=== PATIENT | female | born 1950 | race Caucasian/White ===

== ENCOUNTER 2017-12-28 10:00 | Outpatient (RCR) | payer BC, SELFPAY | END 2017-12-28 10:01 | disposition home or self-care (01) | LOC: PT 10:00 | PROVIDERS: Visit Provider Family Medicine | DX: M54.2 Cervicalgia (principal); M62.838 Other muscle spasm; M25.561 Pain in right knee; S83.8X9A Sprain of other specified parts of unspecified knee, initial encounter | CPT/HCPCS: 97110; 97140; 97163 ==

== ENCOUNTER → 2018-03-06 08:03 | Outpatient (CLI) | payer BC, MEDICARE, SELFPAY ==
--- NOTE | 2018-03-06 08:15 | US_ITS ---
US abdomen limited History:Gastroesophageal reflux, epigastric pain Ordering Physician:Matthew White MD Patient Age: 67 years Comparison:None Findings: Pancreas:Unremarkable. No obvious mass or abnormal fluid collection. No ductal dilatation Liver:No focal liver lesions demonstrated. Homogeneous echogenicity. No intrahepatic biliary ductal dilatation evident Right Kidney:Unremarkable. Normal size and echogenicity. No hydronephrosis Gallbladder:No gallstones, gallbladder wall thickening, pericholecystic fluid, or biliary dilatation. Abdomen bile duct is within normal limits at 6 mm the portal vein is not enlarged Impression:Negative gallbladder/right upper quadrant ultrasound
== END ==
PROVIDERS: PCP Family Medicine; Visit Provider Nurse Practitioner Family
DX: K21.9 Gastro-esophageal reflux disease without esophagitis (principal)
CPT/HCPCS: 76705

== ENCOUNTER → 2018-10-30 10:56 | Outpatient (CLI) | payer BC, SELFPAY ==
--- NOTE | 2018-10-30 11:02 | XR_ITS ---
XR foot wt bearing LT 3V HISTORY: ITS.REASON: pain ORDERING PHYSICIAN: Shirley De La Fuente DPM PATIENT AGE: 68 years COMPARISON: Right foot same date FINDINGS: No fracture or dislocation. No lytic or blastic change. There is normal mineralization.. The joint spaces are well-preserved. No significant degenerative/arthritic changes. No erosive changes evident. There is a small accessory navicular bone a normal variation. There is a small spur of the calcaneus at insertion of Achilles tendon and plantar tendon. There is some flattening of the plantar arch. There is mild spurring and sclerosis of the talonavicular articulation. IMPRESSION: Small calcaneal spurs and mild pes planus
--- NOTE | 2018-10-30 11:02 | XR_ITS ---
XR foot wt bearing RT 3V HISTORY: ITS.REASON: pain ORDERING PHYSICIAN: Shirley De La Fuente DPM PATIENT AGE: 68 years COMPARISON: Left foot same date FINDINGS: No fracture or dislocation. No lytic or blastic change. There is normal mineralization.. There is a small accessory navicular bone. There is mild sclerosis and narrowing of the talonavicular articulation. There is flattening of the plantar arch. . IMPRESSION: Mild arthritic change of the talonavicular articulation, mild pes planus
== END ==
PROVIDERS: PCP Family Medicine; Visit Provider Podiatrist
DX: M79.671 Pain in right foot (principal); M79.672 Pain in left foot
CPT/HCPCS: 73630

== ENCOUNTER → 2018-11-08 14:08 | Outpatient (CLI) | payer BC, SELFPAY ==
--- NOTE | 2018-11-08 14:13 | XR_ITS ---
XR knee RT 4V HISTORY: Right knee pain ITS.REASON: AP, Lateral, [place], [place] weight bearing ORDERING PHYSICIAN: Christi Greer MD PATIENT AGE: 68 years COMPARISON: None FINDINGS: There are moderate osteoarthritic changes of the lateral compartment and mild osteoarthritis of the patellofemoral joint. No fracture or dislocation.. The osteoarthritis has developed since 10/15/2013 exam on the lateral view of the knee there is a vague area of decreased attenuation in the proximal tibia. This is not identified on the additional AP views suppressible clinical significance. 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
== END ==
PROVIDERS: PCP Family Medicine; Visit Provider Orthopaedic Surgery
DX: M25.561 Pain in right knee (principal)
CPT/HCPCS: 73564

== ENCOUNTER → 2019-08-31 13:00 | Outpatient (CLI) | payer BC, SELFPAY ==
--- NOTE | 2019-08-31 13:06 | XR_ITS ---
PROCEDURE: XR CHEST 2V CLINICAL HISTORY: COUGH COMPARISON: CXR CHEST(2 VIEWS-NOT PORTABLE) from 03/04/2015 FINDINGS: The cardiomediastinal silhouette and pulmonary vascularity are within normal limits. No lobar consolidation or collapse is evident. There is mild bronchial thickening suggesting mild bronchitis. No acute bony abnormalities. IMPRESSION: Possible bronchitis otherwise negative Dictated by: Nicolás Cedillo MD 08/31/2019 15:02 Electronically signed by Nicolás Cedillo MD in [place] 08/31/2019 15:02
== END ==
PROVIDERS: PCP Family Medicine; Visit Provider Family Medicine
DX: R05 Cough (principal)
CPT/HCPCS: 71046

== ENCOUNTER → 2021-07-20 18:19 | Outpatient (CLI) | payer MEDICARE, OTHER, SELFPAY ==
[2021-07-20 18:45] LABS: Coronavirus 19, PCR Not Detected (NotDetected); Influenza A, PCR Not Detected (NotDetected); Influenza B, PCR Not Detected (NotDetected)
== END ==
PROVIDERS: PCP Family Medicine; Visit Provider Nurse Practitioner
DX: Z20.822 Contact with and (suspected) exposure to COVID-19 (principal)
CPT/HCPCS: C9803; U0003; U0005

== ENCOUNTER → 2023-03-07 10:36 | Outpatient (CLI) | payer MEDICARE, OTHER, SELFPAY ==
--- NOTE | 2023-03-07 10:47 | XR_ITS ---
FINAL REPORT CLINICAL HISTORY: RT FOOT PAIN FINDINGS: Right foot Three views were obtained. There is no acute fracture or dislocation. There are moderate degenerative changes. No soft tissue abnormality is identified. IMPRESSION: Moderate degenerative changes. Reviewed, Interpreted and Dictated by Tejas Triana III, MD Transcribed by Nanette Summers Authenticated and [facility]
== END ==
PROVIDERS: PCP Family Medicine; Visit Provider Nurse Practitioner Family
DX: M79.671 Pain in right foot (principal)
CPT/HCPCS: 73630

== ENCOUNTER → 2023-03-21 14:42 | Outpatient (CLI) | payer MEDICARE, OTHER, SELFPAY ==
--- NOTE | 2023-03-21 14:52 | CA_ITS ---
FINAL REPORT TECHNIQUE: Multiple transverse and longitudinal images were performed of right the femoral-popliteal deep venous system with augmentation and compression maneuvers. CLINICAL HISTORY: .PAIN CRAMPING FOOT CALF RIGHT LEG FINDINGS: Right lower extremity duplex ultrasound demonstrates normal flow in the deep venous system. There is no abnormal echogenicity to suggest thrombus. There is normal compression and augmentation. IMPRESSION: No evidence of right DVT. Reviewed, Interpreted and Dictated by Jhon Fallon MD Transcribed by Sherlyn Natarajan Authenticated and [facility]
== END ==
PROVIDERS: PCP Family Medicine; Visit Provider Nurse Practitioner Family
DX: M79.604 Pain in right leg (principal)
CPT/HCPCS: 93971

== ENCOUNTER 2024-04-10 13:49 | Outpatient (RCR) | payer MEDICARE, OTHER, SELFPAY | END 2024-04-10 13:50 | disposition home or self-care (01) | LOC: PT 13:49 | PROVIDERS: Visit Provider Orthopaedic Surgery | DX: M17.11 Unilateral primary osteoarthritis, right knee (principal) | CPT/HCPCS: 97110; 97163 ==

== ENCOUNTER 2024-07-02 11:00 | Outpatient (RCR) | payer MEDICARE, OTHER, SELFPAY | END 2024-07-02 23:59 | disposition home or self-care (01) | LOC: PT 11:00 | PROVIDERS: PCP Family Medicine; Visit Provider Physician Assistant | DX: M25.561 Pain in right knee (principal); Z96.651 Presence of right artificial knee joint | CPT/HCPCS: 97014; 97110; 97140; 97163; G0283 ==

== ENCOUNTER 2025-01-24 09:56 | Outpatient (RCR) | payer MEDICARE, OTHER, SELFPAY | END 2025-01-24 23:59 | disposition home or self-care (01) | LOC: PT 09:56 | PROVIDERS: PCP Family Medicine; Visit Provider Physician Assistant | DX: S72.141A Displaced intertrochanteric fracture of right femur, initial encounter for closed fracture (principal) | CPT/HCPCS: 97162; 97530 ==

== ENCOUNTER 2025-02-22 09:59 | Outpatient (CLI) | payer MEDICARE, OTHER, SELFPAY ==
--- OUTSIDE RECORDS SUMMARY | 2017-08-04 11:30 | XMS_ITS | Encounter Summary ---
[facility] Address [address] [place] [address] Care Team Providers Care Sonar Technician Name Role Phone Juan Luis Celis MD Primary Care Provider Unavail able Reason for Referral * Diagnostic Imaging (Routine) - Closed Specialty Diagnoses / Procedures Referred By Contac t Referred To Contact Radiology Diagnoses Postmenopausal bleeding Procedures US Non-ob Transvaginal Jazlyn King MD [address] [place] [address] Phone: tel: fax: [facility] Phone: tel: Referral ID Status Reason Start Date Expiration Date Visits Re quested Visits Authorized [id number] Closed 07/19/2017 07/19/2018 1 1 Reason for Visit * Diagnostic Imaging (Routine) - Closed Specialty Diagnoses / Procedures Referred By Contac t Referred To Contact Radiology Diagnoses Postmenopausal bleeding Procedures US Non-ob Transvaginal Jazlyn King MD [address] [place] [address] Phone: tel: fax: [facility] Phone: tel: Referral ID Status Reason Start Date Expiration Date Visits Re quested Visits Authorized [id number] Closed 07/19/2017 07/19/2018 1 1 Encounter Details Date Type Department Care Team (Latest Contact Info) Description 08/04/2017 10:30 AM EST Hospital Encounter [facility] [place] [phone] Postmenopausal bleeding Social History Tobacco Use Types [...] PAT NAME: ANNA MARIE ZAMORANO MED REC#: [id number] DA: 1950 PAT GEND: F PAT TYPE: O EXAM INGRID: [id number] REF PHYS JAZLYN KING Indication ======== Post Menopausal Bleeding. 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 Recommendation Follow-up as clinically indicated. Communications Officer: Renee Lee [facility] Physician: Sameer Mar MD Electronically signed by: Sameer Mar MD at: 18:26 Procedure Note Sameer Mar MD - 08/04/2017 PAT NAME: ANNA MARIE ZAMORANO [facility] REC#: [id number] DA: 1950 PAT GEND: F PAT TYPE: O EXAM INGRID: [id number] REF PHYS JAZLYN KING Indication ======== Post Menopausal Bleeding. 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 Recommendation Follow-up as clinically indicated. Communications Officer: Renee Lee RDMS Physician: Sameer Mar MD Electronically signed by: Sameer Mar MD at: 18:26 us Jazlyn King MD [facility] US ORDERABLES Final Re sult documented in this encounter Visit Diagnoses Diagnosis Postmenopausal bleeding documented in this encounter Care Teams Sonar Technician Relationship Specialty Start Date End Date Juan Luis Celis MD PCP - General Family Medicine 01/29/16 03/30/21 documented as of this encounter
--- OUTSIDE RECORDS SUMMARY | 2019-11-14 13:16 | XMS_ITS | Encounter Summary ---
Author Organization [facility] Address [address] [place] [address] Care Team Providers Care Dipper Operator Name Role Phone Juan Luis Celis MD Primary Care Provider Unavail able Reason for Referral * Diagnostic Imaging (Routine) - Closed Specialty Diagnoses / Procedures Referred By Contac t Referred To Contact Radiology Diagnoses Abnormal ultrasound Procedures US Non-ob Transvaginal Jazlyn King MD [address] [place] [address] Phone: tel: fax: [address] [address] Phone: tel: fax: Referral ID Status Reason Start Date Expiration Date Visits Re quested Visits Authorized [id number] Closed 11/14/2019 11/13/2020 1 1 Reason for Visit * Diagnostic Imaging (Routine) - Closed Specialty Diagnoses / Procedures Referred By Contac t Referred To Contact Radiology Diagnoses Abnormal ultrasound Procedures US Non-ob Transvaginal Jazlyn King MD [address] [place] [address] Phone: tel: fax: [address] [address] Phone: tel: fax: Referral ID Status Reason Start Date Expiration Date Visits Re quested Visits Authorized [id number] Closed 11/14/2019 11/13/2020 1 1 Encounter Details Date Type Department Care Team (Latest Contact Info) Description 11/14/2019 1:16 PM EDT Hospital Encounter [facility] [place] [place] [phone] Abnormal ultrasound Social History Tobacco Use Types [...] 11/14/2019 1:43 PM EDT [facility] [id number] DA: 1950 PAT GEND: F PAT TYPE: O EXAM INGRID: [id number] REF PHYS JAZLYN KING Indication ======== Post Menopausal Bleeding History ====== Medical History Other: 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 View: Adequate view Uterus ====== Uterus:Normal Uterus position:Anteverted Myometrium:Homogeneous Endometrium:Uniform Cervix details:Normal Uterus long38 mm Uterus ap32 mm Uterus tr48 mm Uterus Vol30.2 cm Endometrial thickness, total1.6 mm Cervical hyftvr59.1 mm Right Ovary ========= Rt ovary:Normal Rt ovary D127.4 mm Rt ovary D216.9 mm Rt ovary D317.1 mm Left Ovary ======== Lt ovary:Normal Lt ovary D117.2 mm Lt ovary D212.2 mm Lt ovary D316.40 mm Cul de Sac ========= Normal Impression ========= Normal pelvic ultrasound. Thin, uniform endometrial stripe. Significant endometrial pathology isunlikely Recommendation Follow-up as clinically indicated. Psychologist Counseling: Renee Lee RDMS Physician: Jazlyn King MD Electronically signed by: Jazlyn King MD at: 13:43 us Jazlyn King MD IMG US ORDERABLES Final Re sult documented in this encounter Visit Diagnoses Diagnosis Abnormal ultrasound documented in this encounter Care Teams Dipper Operator Relationship Specialty Start Date End Date Juan Luis Celis MD PCP - General Family Medicine 01/29/16 03/30/21 documented as of this encounter
--- OUTSIDE RECORDS SUMMARY | 2025-01-01 12:49 | XMS_ITS | Encounter Summary ---
Author Organization Healthcare Address [address] [place] [address] Care Team Providers Care Tobacco Drying Machine Operator Name Role Phone Helio Garvey MD Primary Care Provider [phone] Encounter Details Date Type Department Care Team (Latest Contact Info) Description 01/01/2025 12:49 PM EDT - 01/01/2025 11:59 PM EDT Hospital Encounter [facility]iology [address], [address] [place] [address] Closed intertrochanteric fracture of hip, right, initial encounter Discharge Disposition: Home or Self Care Social History Tobacco Use Types Packs/Day Years Used Date Smoking Tobacco: Former Cigarettes Passive Smoke Exposure: Past Smokeless Tobacco: Never Comments:Smoked occasionally in college Alcohol Use Standard Drinks/Week Comments Yes 4 (1 standard drink = 0.6 oz pur e alcohol) PHQ-2 Answer Date Recorded Patient Health Questionnaire-2 Score 0 12/12/2024 Comments No Sex and Gender Information Value Date Recorded Sex Assigned at Not on file Legal Sex Female 7:57 PM EDT Gender Identity Not on file Sexual Orientation Not on file documented as of this encounter Medications at Time of Discharge acetaminophen (Tylenol 8 Hour) 650 MG ER tablet Take 1 tablet by mouth every 8 hours as needed for mild pain. Do not crush, chew, or split. ALPRAZolam (Xanax) 0.25 MG tablet Take 1 tablet by mouth as needed. buPROPion XL (Wellbutrin XL) 150 MG 24 hr tablet Take 1 tablet by mouth daily. buPROPion XL (Wellbutrin XL) 300 MG 24 hr tablet Take 1 tablet by mouth every morning. Coenzyme Q10 (COQ-10 PO) Take 1 capsule by mouth daily. ibuprofen 600 MG tablet Take by mouth every 6 hours as needed for mild pain. levothyroxine (Synthroid, Levoxyl) 150 MCG tablet Take 1 tablet by mouth daily. Magnesium 100 MG capsule Take 2 capsules by mouth daily. meloxicam (Mobic) 15 MG tablet Take 1 tablet by mouth as needed for mild pain. metoprolol succinate XL (Toprol-XL) 50 MG 24 hr tablet Take 1 tablet by mouth daily. omeprazole (PriLOSEC) [address] capsule Take 1 capsule by mouth 1 (one) time each day. 04/23/2024 oxyCODONE-acetam inophen (Percocet) 5-325 MG tablet Take 1 tablet by mouth every 4 hours. 11/28/2024 Probiotic Product (ALIGN PO) Take 1 tablet by mouth 1 (one) time each day. rosuvastatin (Crestor) 10 MG tablet Take 1 tablet by mouth daily. senna (Senokot) 8.6 MG tablet take two tablets by mouth at bedtime as needed 12/31/2024 sertraline (Zoloft) 100 MG tablet Take 1.5 tablets by mouth 1 (one) time each day. 04/19/2024 timolol (Timoptic) 0.5 % ophthalmic solution Administer 1 drop into both eyes daily. ergocalciferol (Vitamin D-2) 1.25 MG (86841 UT) capsule Take 1 capsule by mouth 1 (one) time per week. 4 capsule 1 11/25/2024 5 documented as of this encounter Plan of Treatment Upcoming Encounters Date Type Department Care Team (Late st Contact Info) Description 03/05/2025 10:10 AM EDT Appointment [facility] Radiology [address] [place] [address] 03/05/2025 10:50 AM EDT Office Visit [facility] Orthopaedic Surgery & Sports Medicine [address] [place] [address] Miguelito Rodriguez MD [address] [place] [phone] 05/17/2025 11:00 AM EDT Office Visit [facility] [address] [facility], [address] [place] [address] Merly Triplett PA [address] [place] [address] documented as of this encounter Procedures Procedure Name Priority Date/Time Associated Diagnosis Comments XR HIP RIGHT 2 OR 3 VIEWS Routine 01/01/2025 1:05 PM EDT Closed intertrochanteric fracture of hip, right, initial encounter documented in this encounter Results * XR Hip Right 2 or 3 Views (including pelvis) (01/01/2025 1:05 PM EDT) Anatomical Region Laterality Modality Lower Extremities, Hip Right Digital R adiography Impressions 01/01/2025 1:58 PM EDT Intramedullary fixation of healing femoral neck fracture with unchanged fracture fragment alignment.. CRITICAL RESULT: No. COMMUNICATION: Per this written report. Drafted by Pasha Morales MD on 01/01/2025 1:56 PM Final report signed by Pasha Morales MD on 01/01/2025 1:58 PM Narrative 01/01/2025 1:58 PM EDT CLINICAL INDICATION: post op TECHNIQUE: XR HIP RIGHT 2 OR 3 VIEWS COMPARISON: November 17, 2024. FINDINGS: 3 views of the right hip show cephalomedullary fixation of a fixation of healing comminuted femoral neck fracture. Hip joint space and alignment are normal. Pubic symphysis is normal. Mild degenerative changes changes are appreciated in the sacroiliac joints. Severe degenerative disc changes at L4-L5. Procedure Note Pasha Morales MD - 01/01/2025 CLINICAL INDICATION: post op TECHNIQUE: XR HIP RIGHT 2 OR 3 VIEWS COMPARISON: November 17, 2024. FINDINGS: 3 views of the right hip show cephalomedullary fixation of a fixation ofhealing comminuted femoral neck fracture. Hip joint space and alignmentare normal. Pubic symphysis is normal. Mild degenerative changes changesare appreciated in the sacroiliac joints. Severe degenerative disc changesat L4-L5. IMPRESSION: Intramedullary fixation of healing femoral neck fracture with unchangedfracture fragment alignment.. CRITICAL RESULT: No. COMMUNICATION: Per this written report. Drafted by Pasha Morales MD on 01/01/2025 1:56 PM Final report signed by Pasha Morales MD on 01/01/2025 1:58 PM us Penny FLOOD IMG XR PROCEDURES Final Resul t documented in this encounter Visit Diagnoses Diagnosis Closed intertrochanteric fracture of hip, right, initial encounter documented in this encounter Additional Health Concerns Assessment Noted Time A fall risk assessment has been complete d for the patient 01/01/2025 1:31 PM EDT A Body Mass Index follow-up plan has been documented for the patient 01/01/2025 2:13 PM EDT documented as of this encounter Care Teams Tobacco Drying Machine Operator Relationship Specialty Start Date End Date Helio Garvey MD [address] [facility] [address] [place] [address] PCP - General 12/12/24 documented as of this encounter
--- OUTSIDE RECORDS SUMMARY | 2025-01-01 13:50 | XMS_ITS | Encounter Summary ---
Author Organization Healthcare Address [address] [place] [address] Care Team Providers Care Cloth Spreader Name Role Phone Helio Garvey MD Primary Care Provider [phone] Reason for Referral * Consultation (Routine) - Authorized Specialty Diagnoses / Procedures Referred By Coy ray Referred To Contact Physical Therapy Diagnoses Closed intertrochanteric fracture of hip, right, initial encounter Penny Robert PA [address] [facility] [address] [place] [address] Phone: tel: fax: Referral ID Status Reason Start Date Expiration Date Visits Requested Visits Authorized [id number] Authorized Consult and Treat 01/01/2025 07/03/2026 1 1 Reason for Visit * Reason Comments Follow-up Encounter Details Date Type Department Care Team (Latest Contact Info) Description 01/01/2025 1:50 PM EDT [facility] [address] [place] [address] Miguelito Rodriguez MD [address] [facility] [address] [place] [id number] Closed intertrochanteric fracture of hip, right, initial encounter (Primary Dx) Social History Tobacco Use Types Packs/Day Years Used Date Smoking Tobacco: Former Cigarettes Passive Smoke Exposure: Past Smokeless Tobacco: Never Tobacco Cessation:Counseling Given: Not Answered Comments:Smoked occasionally in college Alcohol Use Standard [...] on file documented as of this encounter Last Filed Vital Signs Vital Sign Reading Time Taken Comments Blood Pressure 117/63 01/01/2025 1:31 PM EDT Pulse 76 01/01/2025 1:31 PM EDT Temperature 36.9 C (98.4 F) 01/01/2025 1:31 PM EDT Respiratory Rate - - Oxygen Saturation 97% 01/01/2025 1:31 PM EDT Inhaled Oxygen Concentration - - Weight 79.4 kg (175 lb) 01/01/2025 1:31 PM EDT Height 167.6 cm (5' 6 ) 01/01/2025 1:31 PM EDT Body Mass Index 28.25 01/01/2025 1:31 PM EDT documented in this encounter Miscellaneous Notes * Progress Notes - Penny Robert PA - 01/01/2025 1:50 PM EDT Chief complaint: s/p IMN right intertrochanteric femur fracture DOS: 11/17/2024 HPI: Anna Marie Richey is a 74 year old female who presents to clinic for follow up 6 weeks s/p the above stated procedure. Patient has been doing well since her last visit. She has been working with home health PT and feels that she is ready for more intense therapy. She is currently ambulating with the assistance of a cane. Denies any numbness, tingling. Denies any further trauma or injury. Physical Assessment: Right lower extremity: TTP lateral hip No erythema, ecchymosis, edema Knee ROM 0-120 Ankle ROM 10 dorsiflexion, 20 plantarflexion Strength 5/5 GSC/TA/KF/KE 4/5 HF/HAbd/HAdd SILT L2-S1 +2 pt pulses XRAY: 2 views right hip were ordered, reviewed, and interpreted by us, showing Interval healing of fracture with hardware in place no signs of loosening or failure Assessment: 74 year old female doing well Status Post IMN right intertrochanteric femur fracture Plan: -Continue WBAT RLE. Wean from assistive devices as able. Outpatient PT referral for ROM, strengthening, gait training. We will see her back in 2 months with imaging. The patients images were discussed with them. The patient was given an opportunity to ask questions and all their questions were answered to their satisfaction. The patient was seen and evaluated by Dr. Rodriguez. Penny Robert PA-C Department of Orthopaedic Surgery and Sports Medicine Consult Pager: [phone] Service Pager:[phone] Cosigned by Miguelito Rodriguez MD at 01/08/2025 8:25 AM EDT Associated attestation - Miguelito Rodriguez MD - 01/08/2025 8:25 AM EDT I attest to being involved in more than half the total time in patient care. documented in this encounter Plan of Treatment Upcoming Encounters Date Type Department Care Team (Late st Contact Info) Description 03/05/2025 10:10 AM EDT Appointment [facility] Radiology [address] [place] [address] 03/05/2025 10:50 AM EDT Office Visit [facility] Orthopaedic Surgery & Sports Medicine [address], [address] [place] [address] Miguelito Rodriguez MD [address] [place] [address] 05/17/2025 11:00 AM EDT Office Visit [facility] [address] [facility], [address] [place] [address] Merly Triplett PA [address] [place] [address] Scheduled Orders Name Type Priority Associated Diagnoses Orde r Schedule XR Hip Right 2 or 3 Views (including pelvis) Imaging Routine Closed intertrochanteric fracture of hip, right, initial encounter 1 Occurrences starting 01/01/2025 until 07/05/2026 Scheduled Referrals Name Type Priority Associated Diagnoses Orde r Schedule Physical Therapy (outgoing) Outpatient Referral Routine Closed intertrochanteric fracture of hip, right, initial encounter 1 Occurrences starting 01/01/2025 until 07/05/2026 documented as of this encounter Visit Diagnoses Diagnosis Closed intertrochanteric fracture of hip, right, initial encounter- Primary documented in this encounter Additional Health Concerns Assessment Noted Time A fall risk assessment has been complete d for the patient 01/01/2025 1:31 PM EDT A Body Mass Index follow-up plan has been documented for the patient 01/01/2025 2:13 PM EDT documented as of this encounter Care Teams Cloth Spreader Relationship Specialty Start Date End Date Helio Garvey MD [address] [place] [address] [address] [place] [address] PCP - General 12/12/24 documented as of this encounter
--- OUTSIDE RECORDS SUMMARY | 2025-01-23 11:20 | XMS_ITS | Encounter Summary ---
Author Organization Healthcare Address [address] [place] [address] Care Team Providers Care Red Cross Worker Name Role Phone Helio Garvey MD Primary Care Provider [phone] Reason for Referral * Consultation (Routine) - Authorized Specialty Diagnoses / Procedures Referred By Coy ray Referred To Contact Diagnoses Age-related osteoporosis with current pathological fracture, initial encounter Merly Triplett PA [address] [place] [phone] Phone: tel: fax: Referral ID Status Reason Start Date Expiration Date V isits Requested Visits Authorized [id number] Authorized 01/23/2025 07/25/2026 1 1 Reason for Visit * Reason Comments Follow-up Encounter Details Date Type Department Care Team (Late st Contact Info) Description 01/23/2025 11:20 AM EDT Office Visit [facility] [address], [address] [place] [address] Merly Triplett PA [address] [place] [address] Age-related osteoporosis with current pathological fracture, initial encounter (Primary Dx); Vitamin D deficiency Social History Tobacco Use Types Packs/Day Years Used Date Smoking Tobacco: Former Cigarettes Passive Smoke Exposure: Past Smokeless Tobacco: Never Comments:Smoked occasionally in college Alcohol Use Standard Drinks/Week Comments Yes 4 (1 standard drink = 0.6 oz pur e alcohol) PHQ-2 Answer Date Recorded Patient Health Questionnaire-2 Score 0 01/23/2025 Comments No Sex and Gender Information Value Date Recorded Sex Assigned at Not on file Legal Sex Female 7:57 PM EDT Gender Identity Not on file Sexual Orientation Not on file documented as of this encounter Last Filed Vital Signs Vital Sign Reading Time Taken Comments Blood Pressure 135/84 01/23/2025 11:46 AM EDT Pulse 63 01/23/2025 11:46 AM EDT Temperature 36.6 C (97.8 F) 01/23/2025 11:46 AM EDT Respiratory Rate - - Oxygen Saturation 95% 01/23/2025 11:46 AM EDT Inhaled Oxygen Concentration - - Weight 82.2 kg (181 lb 3.2 oz) 01/23/2025 11:46 AM EDT Height 167.6 cm (5' 6 ) 01/23/2025 11:46 AM EDT Body Mass Index 29.25 01/23/2025 11:46 AM EDT documented in this encounter Functional Status * Over the past 2 weeks, how often have you been bothered by any of the following problems? Question Answer Date of Assessment Author Little interest or pleasure in doing things Not at all 01/23/2025 11:53 AM EDT Kavin Koo Feeling down, depressed, or hopeless Not at all 01/23/2025 11:53 AM EDT Kavin Koo Patient Health Questionnaire -2 Score 0 01/23/2025 11:53 AM EDT Kavin Koo documented as of this encounter Miscellaneous Notes * Progress Notes - Merly Triplett PA - 01/23/2025 11:20 AM EDT Subjective Patient ID: Anna Marie Richey is a 74 y.o. female Chief Complaint Patient presents with Follow-up for osteoporosis HPI Ms. Anna Marie Richey is a 74 y.o. female presenting with right hip fracture after fall off sidewalk. ORIF 11-17-2024 Recent DXA in the last month at PCP office was normal per patient. Her Vit D level is low despite being on Vit D supplement on a regular basis. She denies malabsorption risks. 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 Returns for review of labs - Vit D level improved. Bone markers mid range BSAP up to 27 secondary to fracture. VFA- negative Discussed options for anabolic treatment. Prefers Evenity. Will plan to start and f/u 3-4 months mmc with labs PMH: Hypothyroid HLD GERD HTN Anxiety/depression R TKA 05/2024 Osteoporosis history: 10/2024 DXA LS 3.2 RTH: -1.0 DEXA: 2018 - normal. Ambulation: independent Prior fractures: none Prior treatment for osteoporosis: none Dental issues: Smoking: denies Alcohol: denies Diet: Weight: BMI 32 Exercise/Physical activity: Home living situation: lives in [place] with , who is retired family med MD Constitutional: Negative. No fever, fatigue, weight loss. Eyes: Negative. No vision changes. Cardiovascular: Negative. No chest pain or discomfort, lower extremity swelling. Respiratory: Negative. No shortness of breath at rest, cough, hemoptysis. Gastrointestinal: Negative. No heartburn, loss of appetite, nausea, vomiting, bowel disturbance. Musculoskeletal: Negative. No lower back pain, joint swelling, gait disturbance. Physical Exam: Constitutional: No acute distress. Well-developed and nourished. Body mass index is 29.25 kg/m??. Pulmonary: Normal effort of breathing; . Musculoskeletal: Normal range of motion. Psychiatric: Orientated to person, place, and time: Normal Mood and affect Objective Labs: No visits with results within 7 Day(s) from this visit. Latest known visit with results is: Appointment on 12/12/2024 Component Date Value Ref Range Status PTH Intact Total 12/12/2024 55 9 - 77 pg/mL Final VITAMIN D, 1, 25-DIHYDROXY 12/12/2024 44.8 19.9 - 79.3 pg/mL Final Vitamin D 25 Hydroxy 12/12/2024 30.0 20.0 - 80.0 ng/mL Final C Telopeptide Beta Cross Linked Se* 12/12/2024 461 pg/mL Final Bone Specific Alkaline Phosphatase 12/12/2024 27.8 ug/L Final Glucose, Plasma 12/12/2024 95 74 - 99 mg/dL Final BUN, Plasma 12/12/2024 16 8 - 23 mg/dL Final Creatinine, Plasma 12/12/2024 0.64 0.60 - 1.10 mg/dL Final BUN/Creatinine Ratio 12/12/2024 25 Final Sodium, Plasma 12/12/2024 141 136 - 145 mmol/L Final Potassium, Plasma 12/12/2024 4.3 3.6 - 4.9 mmol/L Final Chloride, Plasma 12/12/2024 104 97 - 107 mmol/L Final CO2, Plasma 12/12/2024 26 22 - 29 mmol/L Final Anion Gap 12/12/2024 11 6 - 16 mmol/L Final Total Calcium, Plasma 12/12/2024 9.8 8.9 - 10.2 mg/dL Final Phosphorus, Plasma 12/12/2024 3.8 2.5 - 4.5 mg/dL Final Albumin, Plasma 12/12/2024 4.4 3.5 - 5.2 g/dL Final eGFRcr 12/12/2024 94.0 mL/min/1.73m*2 Final Assessment/Plan Osteoporosis - risk factors for osteoporosis is age postmenopausal, Vit D def -recent DXA outside 10/2024 - normal -VFA - no VCF -metabolic workup in hospital shows Vit D def, now nl -recommend to start Evenity post hip fracture She has no CVD history and is not planning any dental work. MBD labs are normal. AEs and black box warnings were discussed with the patient. Evenity is administered at the infusion center subcutaneously once every month for 12 doses in the abdomen, thigh, or upper arm. She will be monitored closelyduring therapy including chks of serum Ca and P after starting anabolic Rx. Duration of therapy should be constantly evaluated with BTMs and yearly BMD monitoring will continue. She was encouraged to call the clinic at the earliest opportunity, if she experiences any problems after starting the medication. -continue weightbearing exercises -continue calcium and vit D supplements Problem List Items Addressed This Visit None Visit Diagnoses Age-related osteoporosis with current pathological fracture, initial encounter - Primary Relevant Orders Follow Up [facility] Vitamin D deficiency I personally spent a total of 30 minutes on this encounter. This time includes face to face with patient, review of labs and imaging, documentation, counseling and discussion and/or coordination of care. documented in this encounter Plan of Treatment Upcoming Encounters Date Type Department Care Team (Late st Contact Info) Description 03/05/2025 10:10 AM EDT Appointment [facility] Radiology [address], [address] [place] [address] 03/05/2025 10:50 AM EDT Office Visit [facility] Orthopaedic Surgery & Sports Medicine [address], [address] [place] [address] Miguelito Rodriguez MD [address] [place] [address] 05/17/2025 11:00 AM EDT Office Visit [facility] [address], [address] [place] [address] Merly Triplett PA [address] [place] [address] Scheduled Referrals Name Type Priority Associated Diagnoses Orde r Schedule Follow Up [facility] Outpatient Referral Routine Age-related osteoporosis with current pathological fracture, initial encounter Expected: 05/24/2025, Expires: 02/22/2026 documented as of this encounter Visit Diagnoses Diagnosis Age-related osteoporosis with current pathological fracture, initial encounter- Primary Vitamin D deficiency documented in this encounter Additional Health Concerns Assessment Noted Time A fall risk assessment has been complete d for the patient 01/23/2025 11:52 AM EDT A Body Mass Index follow-up plan has been documented for the patient 01/23/2025 12:55 PM EDT documented as of this encounter Care Teams Red Cross Worker Relationship Specialty [place] [address] [place] [address] [address] [place], [place] [id number] PCP - General 12/12/24 documented as of this encounter
--- OUTSIDE RECORDS SUMMARY | 2025-02-22 10:03 | XMS_ITS | Clinical Summary ---
Author Organization [facility] Address [address] [place] [address] Care Team Providers Care Reservations Agent Name Role Phone David Hidalgo MD Primary Care Provider [phone] Allergies No known active allergies Medications timolol (TIMOPTIC) 0.5 % ophthalmic solution 0 7 Active sertraline (ZOLOFT) 100 MG tablet take 1 tablet by mouth once daily 0 7 Active metoprolol succinate XL (TOPROL-XL) 50 MG 24 hr tablet 0 7 Active buPROPion XL (WELLBUTRIN XL) 300 MG 24 hr tablet 0 7 Active rosuvastatin (CRESTOR) 10 MG tablet 0 7 Active omeprazole (priLOSEC) 40 MG capsule Take 1 capsule by mouth Daily. 1 Active Probiotic Product (PROBIOTIC-10 PO) Take by mouth. Activ e Magnesium 100 MG capsule Take by mouth. Acti ve coenzyme Q10 100 MG capsule Take 1 capsule by mouth Daily. Active levothyroxine (SYNTHROID, LEVOTHROID) 150 MCG tablet TAKE 1 TABLET BY MOUTH DAILY. KEEP APPOINTMENT FOR FUTURE REFILLS 2 Active ALPRAZolam (XANAX) 0.25 MG tablet 2 Active Mirabegron ER (Myrbetriq) 50 MG tablet sustained-relea se 24 hour 24 hr tablet Take 50 mg by mouth Daily. 90 tablet 2 3 Active Active Problems Problem Noted Date Diagnosed Date Urge incontinence 10/07/2022 Annual MECHANICAL SYSTEMS DESIGN ENGINEER exam in 02/16/2016 Overview (10/21/2022): SCREENING TESTS Year 2011 2012 2013 2014 2015 2016 2017 2018 2019 2020 2021 2022 2023 2024 2025 2026 2027 2028 2029 2030 Age 66 PAP 11 2 - 8 HPV high risk Mammogram [Birads] 3 [1] 4 [1] - x 6 [1] 6 [1] SARAH score Lipids [LDL / HDL / TG] Vitamin D Colonoscopy X Hemanth - - - 1 Gab DEXA Frax [hip/any] 12 PCP 7 PCP 8 PCP Ovarian Screen Enter the month test was performed. If month not known, enter X' Black numbers = normal results Red numbers = abnormal results Black X = patient reported normal Red X - patient reported abnormal Referred by: Profession: Other info: Austen Richey's Acquired hypothyroidism 08/01/1991 Anxiety and depression 08/01/1986 Hypercholesteremia Panic attack Pigmentary glaucoma Immunizations Immunization Administration Dates Next Due COVID-19 (MODERNA) 1st,2nd,3 rd Dose Monovalent 05/20/2021,09/08/2020,08/07/2020 Fluzone (or Fluarix & Flulav al for VFC) >6mos 05/23/2018,04/22/2017 Fluzone High-Dose 65+YRS 05/15/2022 Pneumococcal Conjugate 13-Valent (PCV13) 018 Social History Tobacco Use Types Packs/Day Years Used Date Smoking Tobacco: Former Cigarettes 0.1 10 1 972 - 1982 Tobacco Cessation:Counseling Given: Not Answered Alcohol Use Standard Drinks/Week Comments Yes 0 [...] e 05/09/2023 Family and Community Support Answer Yinka e Recorded Help with Day-to-Day Activities Not [...] on file Sexual Orientation Not on file Last Filed Vital Signs Vital Sign Reading Time Taken Comments Blood Pressure 128/80 10/07/2022 11:04 AM EST Pulse 66 06/18/2021 10:06 AM EST Temperature - - Respiratory Rate 14 10/07/2022 11:04 AM EST Oxygen Saturation - - Inhaled Oxygen Concentration - - Weight 85.3 kg (188 lb) 10/07/2022 11:04 AM EST Height 170.2 cm (5' 7.01 ) 10/09/2021 9:25 AM ES T Body Mass Index 29.44 10/09/2021 9:25 AM EST Plan of Treatment Health Maintenance Due Date Last Done Comments LIPID PANEL 1952 TDAP/TD VACCINES (1 - Tdap) 1971 COLOGUARD 1997 COLON CANCER SCREENING 5 YEA R SIGMOIDOSCOPY 1997 CT COLONOGRAPHY 1997 FECAL OCCULT BLOOD TEST 1997 FIT Testing (1 year) 1997 ZOSTER VACCINE (1 of 2) 2002 ANNUAL WELLNESS VISIT 02/23/2017 Pneumococcal Vaccine 50+ (2 of 2 - PPSV23) 05/23/2019 05/23/2018 COLONOSCOPY 08/10/2023 08/10/2018 COLORECTAL CANCER SCREENING 08/10/2023 MAMMOGRAM 01/28/2024 01/27/2022, 12/30, 09/15/2020, Additional history exists DXA SCAN 03/07/2024 03/07/2018 COVID-19 Vaccine (4 - 2023-2 5 season) 2024 05/20/2021, 09/08/2020, 08/07/2020 INFLUENZA VACCINE 05/01/2025 05/15/2022, , 04/22/2017 HEPATITIS C SCREENING Completed 11/16/2024 Procedures Procedure Name Priority Date/Time Associated Diagnosis Comments SCANNED - MAMMO 01/27/2022 SCANNED - COLONOSCOPY 08/10/2018 SCANNED - DEXA 03/07/2018 from Last 3 Months or Most Recently Relevant to Health Maintenance Results * SCANNED - MAMMO (01/27/2022) Anatomical Region Laterality Modality Other us Tono Spencer MD CHART REVIEW TABS Final Result * SCANNED - COLONOSCOPY (08/10/2018) us Juan Luis Celis MD CHART REVIEW TABS Final Res ult * SCANNED - DEXA (03/07/2018) Anatomical Region Laterality Modality Other Jhon Dillon MD CHART REVIEW TABS Final Resul t from Last 3 Months or Most Recently Relevant to Health Maintenance [place] [address] MEDICARE A & B Member Subscriber Plan / Payer (Ef fective 2017-Present) Name:Anna Marie Richey Member ID:[id number] Relation to Subscriber:Self Name:Anna Marie Richey Subscriber ID:[id number] Payer ID:[id number] Group ID:Not on file Type:Not on file Address: [facility] [address] [address] [place] [id number] Care Teams Reservations Agent Relationship Specialty Start Date End Date David Hidalgo MD [address] [place] [address] PCP - General Family Medicine 04/22/22
--- OUTSIDE RECORDS SUMMARY | 2025-02-22 10:03 | XMS_ITS | Encounter Summary ---
Author Organization Healthcare Address [address] [place] [address] Care Team Providers Care School Examiner Name Role Phone Helio Garvey MD Primary Care Provider [phone] Reason for Visit * Reason Onset Date Comments HCN - Patient Message 01/02/2025 Encounter Details Date Type Department Care Team (Late st Contact Info) Description 01/02/2025 Telephone [facility] Orthopaedic Surgery & Sports Medicine [address] [place] [address] Miguelito Rodriguez MD [address] [place] [address] HCN - Patient Message Social History Tobacco Use Types Packs/Day Years [...] on file documented as of this encounter Functional Status * Over the [...] as of this encounter Miscellaneous Notes * Telephone Encounter - Vanessa Serrano RN - 01/04/2025 1:10 PM EDT Called pt, she was in the restroom but I spoke with man that answered the phone, he states that pt already has outpatient PT orders and will be starting there soon. They will call if they have further questions. * Telephone Encounter - Jael Hillman - 01/02/2025 12:06 PM EDT Clinical Concern/Question Reason for Call: Jennifer patient. Maria M with [facility] calling to get a message to clinical staff. She states that the patient is discharging today (01/02/2025) from home care. They are also requesting a call back for clarification on a specific exercise Jennifer had wanted patient doing, they are needing to know how many reps he is wanting patient to complete. Best contact number: Other: [phone] (direct line) Optimal time of day to reach caller: ANYTIME Additional comments/information from caller: None Note: Please do not reply to this message. Follow-up communication and further actions as a result of this message need to be communicated with the patient directly, if the patient is not active onMyChart. If the patient is active on MyChart, they will receive notification of the communication/outcome via [employer] [facility] [employer]. documented in this encounter Plan of Treatment Upcoming Encounters Date Type Department Care Team (Late st Contact Info) Description 03/05/2025 10:10 AM EDT Appointment [facility] [address] [place] [phone] 03/05/2025 10:50 AM EDT Office Visit [facility] Orthopaedic Surgery & Sports Medicine [address] [place] [address] Miguelito Rodriguez MD [address] [place] [address] 05/17/2025 11:00 AM EDT Office Visit [facility] [address], [address] [place] [address] Merly Triplett PA [address] [place] [address] documented as of this encounter Visit Diagnoses Not on filedocumented in this encounter Additional Health Concerns Assessment Noted Time A fall risk assessment has been complete d for the patient 01/01/2025 1:31 PM EDT A Body Mass Index follow-up plan has been documented for the patient 01/01/2025 2:13 PM EDT documented as of this encounter Care Teams School Examiner Relationship Specialty Start Date End Date Helio Garvey MD [address] [place] [address] PCP - General 12/12/24 documented as of this encounter
--- OUTSIDE RECORDS SUMMARY | 2025-02-22 10:03 | XMS_ITS | Encounter Summary ---
Author Organization Healthcare Address [address] [place] [address] Care Team Providers Care Weatherstrip Machine Operator Name Role Phone Helio Garvey MD Primary Care Provider [phone] Encounter Details Date Type Department Care Team (Latest Contact Info) Description 01/23/2025 Travel Social History Tobacco Use Types Packs/Day Years [...] Kavin Koo documented as of this encounter Plan of Treatment Upcoming Encounters Date Type Department Care Team (Late st Contact Info) Description 03/05/2025 10:10 AM EDT [facility]ointment [facility] [address] [place] [phone] 03/05/2025 10:50 AM EDT [facility] [address] [place] [address] Miguelito Rodriguez MD [address] [place] [address] 05/17/2025 11:00 AM EDT Office Visit [facility] [address], [address] [place] [address] Merly Triplett PA [address] [place] [address] documented as of this encounter Visit Diagnoses Not on filedocumented in this encounter Additional Health Concerns Assessment Noted Time A fall risk assessment has been complete d for the patient 01/23/2025 11:52 AM EDT A Body Mass Index follow-up plan has been documented for the patient 01/23/2025 12:55 PM EDT documented as of this encounter Care Teams Weatherstrip Machine Operator Relationship Specialty Start Date End Date Helio Garvey MD [address] [place] [address] PCP - General 12/12/24 documented as of this encounter
--- OUTSIDE RECORDS SUMMARY | 2025-02-22 10:03 | XMS_ITS | Clinical Summary ---
Author Organization [facility] ([place], [place], [place], [place]) Address [address] [place] [address] Care Team Providers Care Coat Check Attendant Name Role Phone David Hidalgo MD Primary Care Provider [phone] Allergies No known active allergies Medications sertraline (ZOLOFT) 100 MG tablet Take 1.5 tablets (150 mg total) by mouth daily. 04/19/2024 Active rosuvastatin (CRESTOR) 10 MG tablet Take 1 tablet (10 mg total) by mouth nightly. 02/20/2024 Active omeprazole (PriLOSEC) 40 MG capsule Take 1 capsule (40 mg total) by mouth daily. 04/23/2024 Active metoprolol succinate (TOPROL-XL) 50 MG 24 hr tablet Take 1 tablet (50 mg total) by mouth daily. 02/20/2024 Active levothyroxine (SYNTHROID) 150 MCG tablet Take 1 tablet (150 mcg total) by mouth daily. 02/20/2024 Active hyoscyamine (LEVSIN/SL) 0.125 mg SL tablet 1 tablet (125 mcg total) as needed. 02/23/2024 Active buPROPion XL (WELLBUTRIN XL) 300 MG 24 hr tablet Take 1 tablet (300 mg total) by mouth daily. 03/26/2024 Active ALPRAZolam (XANAX) 0.25 MG tablet Take 0.5-1 tablets (0.125-0.25 mg total) by mouth every night as needed. 04/03/2024 Active Bifidobacterium infantis (ALIGN ORAL) Take by mouth daily. Active magnesium glycinate (MAG GLYCINATE ORAL) Take by mouth daily. Active timoloL (TIMOPTIC) 0.5 % ophthalmic solution 1 drop daily. 03/26/2024 Active coenzyme Q10 100 mg capsule Take 1 capsule (100 mg total) by mouth daily. Active buPROPion XL (WELLBUTRIN XL) 150 MG 24 hr tablet Take 1 tablet (150 mg total) by mouth daily. 05/05/2024 Active cyanocobalamin, vitamin B-12, (VITAMIN B-12 ORAL) Take by mouth. Active ondansetron (ZOFRAN) 4 MG tablet Take 1 tablet (4 mg total) by mouth 4 (four) times daily as needed for nausea for up to 60 doses. 30 tablet 05/22/2024 Active Active Problems Problem Noted Date Diagnosed Date Hypothyroidism 05/14/2024 Gastroesophageal reflux disease 05/14/2024 Social History Tobacco Use Types Packs/Day Years Used Date Smoking Tobacco: Former Cigarettes Q uit: 1977 Smokeless Tobacco: Never Tobacco Cessation:Counseling Given: Not Answered Alcohol Use Standard Drinks/Week Comments Yes 8 (1 standard drink = 0.6 oz pur e alcohol) [facility] - Mental Health Answer Date Recorde d Little interest or pleasure in doing things Not at all 05/14/2024 Feeling down, depressed, or hopeless Not at all 05/14/2024 Feeling of Stress Not on file 05/14/2024 [facility] Intimate Partner Violence Answer Da te Recorded Within the last year, have y ou been afraid of your partner or ex-partner? No 05/14/2024 Within the last year, have y ou been humiliated or emotionally abused in other ways by your partner or ex-partner? No Within the last year, have y ou been kicked, hit, slapped, or otherwise physically hurt by your partner or ex-partner? No 05/14/2024 Within the last year, have y ou been raped or forced to have any kind of sexual activity by your partner or ex-partner? No 05/14/2024 Family and Community Support Answer Yinka e Recorded Help with Day to Day Activities Not on file 08/19/2023 Feeling Lonely or Isolated Not on file 08/19 Educational Attainment Answer Date Yassine rded Speak language other than Norwegian at home Not on file 08/19/2023 Want help with school or training Not on file 08/19/2023 Substance Use Answer Date Recorded Used prescription meds for non-medical reasons N ot on file 08/19/2023 Used illegal drugs past 12 months Not on file 08/19/2023 Comments No Sex and Gender Information Value Date Recorded Sex Assigned at Female 01/26/2022 12:56 PM CDT Legal Sex Female 12:56 PM CDT Gender Identity Female 01/26/2022 12:56 PM CDT Sexual Orientation Not on file Last Filed Vital Signs Vital Sign Reading Time Taken Comments Blood Pressure 106/62 05/25/2024 2:35 PM EDT Pulse 96 05/25/2024 2:35 PM EDT Temperature 36.4 C (97.5 F) 05/25/2024 1:24 PM EDT Respiratory Rate 18 05/25/2024 1:24 PM EDT Oxygen Saturation 94% 05/25/2024 2:35 PM EDT Inhaled Oxygen Concentration - - Weight 81.6 kg (180 lb) 05/25/2024 1:24 PM EDT Height 167.6 cm (5' 6 ) 05/25/2024 1:24 PM EDT Body Mass Index 29.05 05/25/2024 1:24 PM EDT Plan of Treatment Upcoming Encounters Date Type Department Care Team (Late st Contact Info) Description 04/18/2025 11:00 AM EDT Appointment [address] [place] [address] Helio Garvey MD [address] [place] [address] [place] [address] Health Maintenance Due Date Last Done Comments CT Colonography 1952 Colonoscopy 1952 Colorectal Cancer Screening 1952 DXA SCAN 1952 FOBT/FIT 1952 Fit-DNA (Cologuard) 1952 Sigmoidoscopy 1952 Hepatitis C Screening 1970 DTAP/TDAP/TD VACCINES (1 - Tdap) 1971 Shingles Vaccine (Zoster) (1 of 2) 2002 Medicare Initial AWV G0438 07/02/2018 Pneumococcal 50+ years (2 of 2 - PPSV23) 05/23/2019 05/23/2018 COVID-19 VACCINE (4 - 2023-2 5 season) 2024 05/20/2021, 09/08/2020, 08/07/2020 Falls Risk Screening 08/01/2024 Influenza Vaccine (#1) 2025 Depression Screening (12+) 05/14/2025 05/14/2024 Tobacco Cessation Counseling and Screening (12+) 05/14/2025 05/14/2024 Breast Cancer Screening 04/16/2026 04/16/20 24, 03/01/2023, 01/27/2022, Additional history exists Respiratory Syncytial Virus (RSV) Adult or (1 - 1-dose 75+ series) 2027 Medical Devices Implanted Type Area Wire Basket Maker Device Identifier Shelf Expiration Date Model / Serial / Lot Cement Bone Smplx Hv 6194-1-001 - [id number] Implanted:Qt y: 2 on 05/21/2024 by Wilbert Leo MD at [facility] IMPLANTS Right: Knee ANDREI:[employer] [id number] 08/31/2025 [id number] E Psn Art Surf Mc 10 Ve8-11ef Rt 69-1787-236- 10 - [id number] Implanted:Qt y: 1 on 05/21/2024 by Wilbert Leo MD at [facility] TOTAL JOINT CONSTRUCT Right: Knee SHAY:SHAY [id number] 01/01/2029 42-5221-0 08- [id number] Psn Rev Tib Fx Keel Cmt Sz E R 45-8455-710- 02 - [id number] Implanted:Qt y: 1 on 05/21/2024 by Wilbert Leo MD at [facility] TOTAL JOINT CONSTRUCT Right: Knee SHAY:SHAY US [id number] 04/02/2034 42-5360-0 71-02 [id number] Psn Fem Cr Cmt Ccr Nrw Sz 8 R 71-7311-921- 02 - [id number] Implanted:Qt y: 1 on 05/21/2024 by Wilbert Leo MD at [facility] TOTAL JOINT CONSTRUCT Right: Knee SHAY:SHAY [id number] 12/18/2033 42-5020-0 64- [id number] Procedures Procedure Name Priority Date/Time Associated Diagnosis Comments MM DIGITAL MAMMO SCREEN WITH TORSTEN BILATERAL Routine 04/16/2024 2:42 PM EDT Visit for screening mammogram from Last 3 Months or Most Recently Relevant to Health Maintenance Results * MM digital mammo screen with torsten bilateral (04/16/2024 2:42 PM EDT) Anatomical Region Laterality Modality Breast Bilateral Mammography 04/18/2024 5:24 PM EDT Impressions 04/18/2024 5:28 PM EDT FINAL IMPRESSION: Stable mammogram. No findings suspicious for malignancy. Bi-RADS: ACR BI-RADS 1: Negative. RECOMMENDATIONS: Annual screening mammography. A letter including results and recommendations was sent to the patient. Density notification was included for all patients. Patient information was entered into a reminder system with a target due date for the next mammogram. At our facility, a chefornak marker is positioned over a visible skin lesion and a linear marker is used to indicate a scar. A triangular marker is placed on a self reported palpable finding. Note: Mammography does not detect approximately 10-15% of breast cancers. An annual clinical breast exam by the patient's breast care physician and regular monthly self breast exams by the patient are integral parts of breast cancer screening, in addition to annual mammography. A normal mammogram does not completely exclude the presence of breast cancer, especially if there is an abnormal finding on physical exam. When clinically indicated, a biopsy should not be deferred because of a normal mammogram report. Narrative 04/18/2024 5:28 PM EDT PROCEDURE: Digital screening mammogram with Digital Breast Tomosynthesis (DBT). REASON FOR EXAM: Routine screening. FAMILY HISTORY: No family history of breast cancer. COMPARISON STUDY: 2022 through 2015 from [facility] FINDINGS: Craniocaudal and mediolateral oblique images of both breasts were obtained in 2D and DBT modes. Synthesized views were reconstructed from DBT data. The breast tissue is almost entirely fatty. There is no evidence of dominant mass, architectural distortion, or suspicious calcifications. The mammogram was interpreted with the benefit of computer aided detection (CAD). David Hidalgo MD IM MAMMOGRAPHY ORDERABLES Final Result from Last 3 Months or Most Recently Relevant to Health Maintenance [place] [place] [address] MEDICARE PART A B Advance Directives For more information, please contact: [phone] * Full Code (Latest Code Status on File) Date Activated Date Inactivated Comments 05/21/2024 8:46 AM 05/22/2024 12:28 PM * Full Code Date Activated Date Inactivated Comments 05/21/2024 5:19 AM 05/21/2024 8:46 AM Care Teams Coat Check Attendant Relationship Specialty Start Date End Date David Hidalgo MD [address] [address] PCP - General 01/17/23
--- OUTSIDE RECORDS SUMMARY | 2025-02-22 10:03 | XMS_ITS | Encounter Summary ---
Author Organization [employer] ([place], [place], [place], [place]) Address [address] [place] [address] Care Team Providers Care Liquor Bridge Operator Helper Name Role Phone David Hidalgo MD Primary Care Provider [phone] Reason for Referral * Mammography (Routine) - New Request Specialty Diagnoses / Procedures Referred By Coy ray Referred To Contact Diagnoses Visit for screening mammogram Procedures MM digital mammo screen with alexandria bilateral Helio Garvey MD [address] [employer] [address] [place] [address] Phone: tel: fax: Referral ID Status Reason Start Date Expiration Date V isits Requested Visits Authorized [id number] New Request 04/18/2025 04/18/2026 1 1 Encounter Details Date Type Department Care Team (Late st Contact Info) Description 04/16/2024 Outside Orders [facility] Scheduling [address] [place] [address] Helio Garvey MD [address] [employer] [address] [place] [address] Visit for screening mammogram (Primary Dx) Social History Tobacco Use Types Packs/Day Years Used Date Smoking Tobacco: Never Assessed Family and Community Support Answer Yinka e Recorded Help with Day to Day Activities Not on file 08/19/2023 Feeling Lonely or Isolated Not on file 08/19 Educational Attainment Answer Date Yassine rded Speak language other than Colombian at home Not on file 08/19/2023 Want help with school or training Not on file 08/19/2023 Substance Use Answer Date Recorded Used prescription meds for non-medical reasons N ot on file 08/19/2023 Used illegal drugs past 12 months Not on file 08/19/2023 Comments Unknown Sex and Gender Information Value Date Recorded Sex Assigned at Female 01/26/2022 12:56 PM CDT Legal Sex Female 12:56 PM CDT Gender Identity Female 01/26/2022 12:56 PM CDT Sexual Orientation Not on file documented as of this encounter Plan of Treatment Upcoming Encounters Date Type Department Care Team (Late st Contact Info) Description 04/18/2025 11:00 AM EDT Appointment [address] [place] [address] Helio Garvey MD [address] [facility] [address] [place] [address] Scheduled Orders Name Type Priority Associated Diagnoses Orde r Schedule MM digital mammo screen with alexandria bilateral Imaging Routine Visit for screening mammogram Expected: 04/18/2025, Expires: 10/14/2025 documented as of this encounter Visit Diagnoses Diagnosis Visit for screening mammogram- Primary documented in this encounter Care Teams Liquor Bridge Operator Helper Relationship Specialty Start Date End Date David Hidalgo MD [address] [facility] [address] [place] [address] PCP - General 01/17/23 documented as of this encounter
--- OUTSIDE RECORDS SUMMARY | 2025-02-22 10:03 | XMS_ITS | Encounter Summary ---
Author Organization [facility] Address [address] [place] [address] Care Team Providers Care Street Photographer Name Role Phone Helio Garvey MD Primary Care Provider [phone] Encounter Details Date Type Department Care Team (Late st Contact Info) Description 02/12/2025 Telephone [facility] [address] [place] [address] Allie Calles, PharmD Social History Tobacco Use Types Packs/Day Years [...] on file documented as of this encounter Miscellaneous Notes * Telephone Encounter - Allie Calles, PharmD - 02/12/2025 3:06 PM EDT [facility] has received therapy plan for medication Evenity. [facility] has contacted the patient and are in the process of completing the authorization for preferred site of care, [facility] . Medicare B/Advantage Plan Authorization Information Specialty Medication: Evenity Diagnosis Code: Age-related osteoporosis with current pathological fracture, initial encounter [M80.00XA] J-code/CPT code/S code: J3111 Covered by Medicare B: Yes Does the diagnosis, dose, and frequency match an FDA approved dosing schedule? Yes, list prescribeddose/frequency: Evenity 210 subcutaneously once a month for 12 months Site of Care: [facility] Does patient have an Advantage Plan? No. Will review in 12 months. Patient has been approved to receive infusion treatment at outside facility. [facility] will follow up with facility to make sure patient has been scheduled and received first dose. Specialty Medication: Evenity Filling Pharmacy/SOC: [facility] documented in this encounter Plan of Treatment Upcoming Encounters Date Type Department Care Team ([facility] st Contact Info) Description 03/05/2025 10:10 AM EDT Appointment [facility] Radiology [address] [facility] [place] [address] 03/05/2025 10:50 AM EDT Office Visit [facility] Orthopaedic Surgery & Sports Medicine [address] [facility] [address] [place] [address] Miguelito Rodriguez MD [address] [facility] [address] [place] [address] 05/17/2025 11:00 AM EDT Office Visit [facility] [address] [facility], [address] [place] [address] Merly Triplett PA [address] [facility] [address] [place] [address] documented as of this encounter Visit Diagnoses Not on filedocumented in this encounter Additional Health Concerns Assessment Noted Time A fall risk assessment has been complete d for the patient 01/23/2025 11:52 AM EDT A Body Mass Index follow-up plan has been documented for the patient 01/23/2025 12:55 PM EDT documented as of this encounter Care Teams Street Photographer Relationship Specialty Start Date End Date Helio Garvey MD [address] [facility] [address] [place] [address] PCP - General 12/12/24 documented as of this encounter
--- OUTSIDE RECORDS SUMMARY | 2025-02-22 10:03 | XMS_ITS | Encounter Summary ---
Author Organization [facility] Address [address] [place] [address] Care Team Providers Care Supervisor Inspection Department Name Role Phone Helio Garvey MD Primary Care Provider [phone] Encounter Details Date Type Department Care Team (Latest Contact Info) Description 01/01/2025 Travel Social History Tobacco Use Types Packs/Day [...] Info) Description 03/05/2025 10:10 AM EDT Appointment [facility] Radiology [address], 1st [place] [address] 03/05/2025 10:50 AM EDT Office Visit [facility] Orthopaedic Surgery & Sports Medicine [address], 1[address] [place] [address] Miguelito Rodriguez MD [address] [place] [address] 05/17/2025 11:00 AM EDT Office Visit [facility] [address] [facility], [address] [place] [address] Merly Triplett PA [address] [place] [address] documented as of this encounter Visit Diagnoses Not on filedocumented in this encounter Additional Health Concerns Assessment Noted Time A fall risk assessment has been complete d for the patient 01/01/2025 1:31 PM EDT A Body Mass Index follow-up plan has been documented for the patient 01/01/2025 2:13 PM EDT documented as of this encounter Care Teams Supervisor Inspection Department Relationship Specialty Start Date End Date Helio Garvey MD [address] [facility] [address] [facility] [address] [place] [address] PCP - General 12/12/24 documented as of this encounter
--- OUTSIDE RECORDS SUMMARY | 2025-02-22 10:03 | XMS_ITS | Encounter Summary ---
Author Organization [facility] Address [address] [place] [address] Care Team Providers Care Boat Washer Name Role Phone Tyler Celis MD Primary Care Provider [phone] Helio Garvey MD Primary Care Provider [phone] Encounter Details Date Type Department Care Team ([facility] st Contact Info) Description 11/28/2024 Telephone [facility] [address] [facility], [address] [place] [address] Nephrology, Physician, [address] [place], [place] [id number] Social History Tobacco Use Types Packs/Day Years Used Date Smoking Tobacco: Never Assessed PHQ-2 Answer Date Recorded Patient Health Questionnaire-2 [...] pleasure in doing things Not at all 12/12/2024 11:00 AM EDT Rocio Hartman Feeling down, depressed, or hopeless Not at all 12/12/2024 11:00 AM EDT Rocio Hartman Patient Health Questionnaire -2 Score 0 12/12/2024 11:00 AM EDT Rocio Hartman documented as of this encounter Miscellaneous Notes * Telephone Encounter - Brandi Drake - 11/28/2024 11:37 AM EDT Patient Phone Message Reason for Call: Pt daughter called to check on the status of patients referral that has been sent for review. Best contact number and optimal time of day to reach caller: Hillary--[phone] Note: Please do not reply to this message. Follow-up communication and further actions as a result of this message need to be communicated with the patient directly, if the patient is not active onMyChart. If the patient is active on MyChart, they will receive notification of the communication/outcome via [employer]. documented in this encounter Plan of Treatment Upcoming Encounters Date Type Department Care Team ([facility] st Contact Info) Description 03/05/2025 10:10 AM EDT Appointment [facility] Radiology [address], [address] [place] [id number] 03/05/2025 10:50 AM EDT Office Visit [facility] Orthopaedic Surgery & Sports Medicine [address], 1[address] [place] [address] Miguelito Rodriguez MD [address] [facility] [address] [place] [address] 05/17/2025 11:00 AM EDT Office Visit [facility] [address], [address] [place] [address] Merly Triplett PA [address] [place] [address] documented as of this encounter Visit Diagnoses Not on filedocumented in this encounter Additional Health Concerns Assessment Noted Time A Body Mass Index follow-up plan has been documented for the patient 11/20/2024 12:26 PM EDT documented as of this encounter Care Teams Boat Washer Relationship Specialty Start Date End Date Tyler Celis MD [address] [place] [address] PCP - General 12/12/20 12/11/24 Helio Garvey MD [address] [place] [address] PCP - General 12/12/24 documented as of this encounter
--- OUTSIDE RECORDS SUMMARY | 2025-02-22 10:03 | XMS_ITS | Encounter Summary ---
Author Organization [facility] Address [address] [place] [address] Care Team Providers Care Cement Kiln Operator Name Role Phone Helio Garvey MD Primary Care Provider [phone] Encounter Details Date Type Department Care Team (Latest Contact Info) Description 12/31/2024 Travel Social History Tobacco Use Types Packs/Day Years Used Date Smoking Tobacco: Some Days Cigarettes Passive Smoke Exposure: Past Smokeless Tobacco: [...] Info) Description 03/05/2025 10:10 AM EDT Appointment [facility] Radiology [address], 1st [place] [address] 03/05/2025 10:50 AM EDT Office Visit [facility] Orthopaedic Surgery & Sports Medicine [address], [address] [place] [address] Miguelito Rodriguez MD [address] [place] [address] 05/17/2025 11:00 AM EDT Office Visit [facility] [address] [facility], [address] [place] [address] Merly Triplett PA [address] [place] [address] documented as of this encounter Visit Diagnoses Not on filedocumented in this encounter Additional Health Concerns Assessment Noted Time A fall risk assessment has been complete d for the patient 12/12/2024 10:57 AM EDT A Body Mass Index follow-up plan has been documented for the patient 12/12/2024 11:43 AM EDT documented as of this encounter Care Teams Cement Kiln Operator Relationship Specialty Start Date End Date Helio Garvey MD [address] [facility] [address] [place], [place] [address] PCP - General 12/12/24 documented as of this encounter
--- OUTSIDE RECORDS SUMMARY | 2025-02-22 10:03 | XMS_ITS | Data Portability ---
Author Organization [facility]OS[facility] Address [address] [place] [address] Assessment Encounter Date Assessment Date Assessment LastModified by Organization Details LastModified Time 06/06/2024 06/06/2024 Mena Zamorano is a 73-year-old woman with low back pain radiating to the right leg returns for follow-up visit. She is doing well with resolution of her back and right leg pain. She is pleased with her progress and wants to avoid surgery as long as possible, which I think is very reasonable. She will return for follow-up visit in 6 weeks. Instructed her to return sooner if she develops new or progressive symptoms. [email or web address] Not available 06/06/2024 14:53:27 Plan of Treatment Reminders Order Date Submit Date Provider Last Modified By Organization Details Last Modified Time Details Appointments None recorded. Lab None recorded. Referral physical therapist referral 2023 024 [facility], [address], [place], [address], 18:25:46 Procedures None recorded. Surgeries None recorded. Imaging None recorded. Medication Orders None recorded. Patient TargetsNo targets recorded. Patient InstructionsNo instructions recorded. Reason for Referral Physical Therapist Referral for History of right total knee replacement Referring Physician: Jenifer Cantu, Orthopedic Surgery, Encounter Date: 06/11/2024 Results Created Date Observation Date Name Description Value Unit Range Abnormal Flag Note LastModifiedBy Organization Detail LastModifiedTime 02/22/20 24 02/22/2024 XR, knee, 4 or more view [facility] [address] [place] [address] Alba ray Name: ROSCOE ray : 1949 Alba ray Orderi ng Provid er: JENIFER CANTU EXAM DATE: 2023 EXAM: XR RT KNEE COMPLE TE, 4 OR MORE VWS COMPAR NEW: None. HISTOR Y: Right knee pain. FINDIN GS: No fractu re is identi fied. There are severe degene rative change s in the right knee. There is near comple te latera l joint space loss. There is modera te to severe margin al spurri ng. There is a large joint effusi on. Contra latera l knee: There are modera te degene rative change s. IMPRES RYLAN: 1. There are severe degene rative change s in the right knee. Interp reted By: Arnel gutierrez MD Electr onical ly Signed By: Arnel gutierrez MD on 10:36 AM [email or web address] [facility] [place] [address] , [place], [address], 02/23/2024 12:39:25 02/28/20 24 02/28/2024 XR, joint , multi ple, 1 view [facility], [facility] [address] [place] [address] Alba ray Name: ROSCOE ray : 1949 Alba ray Orderi ng Provid er: MORE VICKERS EXAM DATE: 2023 EXAM: XR LONG LEG RIGHT/ JOINT SURVEY COMPAR NEW: 024 HISTOR Y: Patien t for pre-op erativ e evalua tion. FINDIN GS: There are severe degene rative change s in the right knee. There is promin ent margin al osteop hytic spurri ng with loss of joint space in the latera l femoro tibial compar tment. This result s in valgus angula tion of the mechan ical axis of the knee. There are mild degene rative change s in the hip and mild degene rative change s in the ankle. IMPRES RYLAN: 1. There are severe osteoa rthrit ic change s in the right knee with associ ated valgus angula tion of the mechan ical axis of the knee. Interp reted By: Arnel gutierrez MD Electr onical ly Signed By: Arnel gutierrez MD on 10:38 AM [email or web address] [facility] [address], [place], [address], 03/03/2024 07:02:18 06/11/2006/11/2024 XR, knee, 3 view [facility] [address] [address] Patien t Name: ROSCOE ZAMORANO Patien t : 1949 [facility] Prov[facility] er: MITUL ANDERSON EXAM DATE: 2023 EXAM: XR RT KNEE 3 VIEWS COMPAR NEW: HISTOR Y: Follow -up of prior surger yYohan MALIKA GS: There has been interv al placem ent of a right knee total arthro plasty . There is no eviden ce of loosen ing. No fractu re is identi fied. Contra latera l knee: There are mild to modera te degene rative change s. IMPRES RYLAN: 1. There is a right total knee arthro plasty in place withou t eviden ce of loosen ing. Interp reted By: Arnel gutierrez MD [facility] onical ly Signed By: Arnel gutierrez MD on 2023 10:09 AM [email or web address] [facility] [address], [place], [address], 06/11/2024 12:25:39 Result Notes Documentation Provider Name and Address Organization Details Recorded Time Xr, Joint, Multiple, 1 View : [place] [address] [place] [address] Patient Name: ANNA MARIE ZAMORANO Patient : 1950 Patient Ordering Provider: MORE HERNANDEZ EXAM DATE: 02/28/2024 EXAM: XR LONG LEG RIGHT/ JOINT SURVEY COMPARISON: 02/22/2024 HISTORY: Patient for pre-operative evaluation. FINDINGS: There are severe degenerative changes in the right knee. There is prominent marginal osteophytic spurring with loss of joint space in the lateral femorotibial compartment. This results in valgus angulation of the mechanical axis of the knee. There are mild degenerative changes in the hip and mild degenerative changes in the ankle. IMPRESSION: 1. There are severe osteoarthritic changes in the right knee with associated valgus angulation of the mechanical axis of the knee. Interpreted By: Walter Ewing MD HERNANDEZ MD [address] [place] [address], [phone], [facility] 03/03/2024 07:02:18 Xr, Knee, 3 View : [facility] [place] [address] [place] [address] Patient Name: ANNA MARIE ZAMORANO Patient : 1950 Patient Ordering Provider: MITUL ANDERSON EXAM DATE: 06/11/2024 EXAM: XR RT KNEE 3 VIEWS COMPARISON: 02/22/2024 HISTORY: Follow-up of prior surgery. FINDINGS: There has been interval placement of a right knee total arthroplasty. There is no evidence of loosening. No fracture is identified. Contralateral knee: There are mild to moderate degenerative changes. IMPRESSION: 1. There is a right total knee arthroplasty in place without evidence of loosening. Interpreted By: Walter Ewing MD L ANDERSON PA-C [address] [place] [address], [phone], [facility] 06/11/2024 12:25:39 Problems Name Problem SNOMED Code Status Onset Date Resolution Date Notes Provider Name and Address Organization Details Recorded Time Osteoarthri tis of right knee joint 7918251266702 00 Active 2023 MORE HERNANDEZ MD [address] [place] [address], [phone] [place] [address] 17:33:17 Problem Notes None recorded. Procedures Surgical History Date Name Laterality Status Provider Name and Address Organization Details Recorded Time total replacement of right knee joint completed Kacie Banda [facility] 06/26/2024 15:30:43 PCM Visit completed Edilberto Tay [facility] 05/17/2024 15:44:37 Knee arthroscopy/victor manuel tucker completed Megan Carlson [facility] 06/06/2024 14:07:08 Imaging Results None recorded. Procedure Notes None recorded. Medical Equipment None Reported. Allergies No known drug allergies Medications Name Sig Start Date Stop Date Status Note LastModified by Organization Details LastModified Time Zoloft 50 mg tablet Take 1 tablet every day by oral route. active Not Available Not Available No t Available Synthroid 25 mcg tablet Take 1 tablet every day by oral route. active Not Available Not Available No t Available oxycodone 5 mg tablet Take 1 tablet every 4 hours by oral route. active Not Available Not Available Not Avai lable Crestor 5 mg tablet Take 1 tablet every day by oral route. active Not Available Not Available No t Available Lyrica 75 mg capsule Take 1 capsule 3 times a day by oral route. active Not Available Not Available Not Avai lable magnesium active Not Available Not Charu ilable Not Available bupropion HCl active Not Available Not Available Not Available CoQ-10 active Not Available Not Availa ble Not Available Vitals Date Recorded Body height Body mass index (BMI) Body weight Provider Name and Address Organization Details Last Updated DateTime 02/28/2024 167.64 cm 29.5 kg/m2 93485.4 g Maria Isabel Shaggy [facility] 02/28/2024 10:34:45 Date Recorded Body height Body mass index (BMI) Body weight Pain severity - 0-10 verbal numeric rating [Score] - Reported Provider Name and Address Organization Details Last Updated DateTime 05/13/2024 167.64 cm 29.5 kg/m2 04520.4 g 7 Edilberto Tay [facility] 05/17/2024 15:41:48 Date Recorded Body height Body mass index (BMI) Body weight Systolic And Diastolic Provider Name and Address Organization Details Last Updated DateTime 06/06/2024 167.64 cm 29.5 kg/m2 03310.4 g 122/82 mm[Hg] Megan Carlson [facility] 06/06/2024 14:23:20 Date Recorded Body height Body mass index (BMI) Body weight Provider Name and Address Organization Details Last Updated DateTime 06/11/2024 167.64 cm 29.5 kg/m2 61241.4 g Maria Isabel Coon [facility] 06/11/2024 09:41:50 Social History Question Answer Notes LastModified by Organizat [employer] Details LastModified Time Tobacco Smoking Status Former Smoker Tyler Lema Adriel mccray, [facility] 02/22/2024 10:15:26 When Did You Quit Smoking? 16+yearssinc elastcigaret te Information not available 02/22/2024 What Is Your Relationship Status? Information not available 02/22/2024 At What Age Did You Start Smoking Tobacco? 20 Information not available 02/22/2024 How Many Years Have You Smoked Tobacco? 6 Information not available 02/22/2024 Sex: Female Functional Status Question Answer Note LastModified by [employer], Details LastModified Time Do you use any illicit or recreational drugs? No Information not available 02/22/2024 Do you or have you ever used any other forms of tobacco or nicotine? No Information not available 02/22/2024 What is your level of alcohol consumption? Moderate Information not available 02/22/2024 Are you currently employed? No Information not available 02/22/2024 Mental Status None recorded. Family History Relationship Description Onset Age of this Age Resolved Age Notes LastModified by Organization Details LastModified Time Mother Carolina oakes Not available 2023 10:14:24 Medical History Condition Response Gout N Kidney Stones N COPD N Pneumonia N Arthritis N Blood Clot N Cancer N Stroke N Kidney Disease N Heart Conditions N Migraines N Skin Problems N Rheumatic Fever N Bleeding Disorder N Genetic Disorder N AIDS/HIV N Asthma N Included as Review of Systems N Anxiety/Depression Y Thyroid Disease Y Hernia N Glaucoma Y Anesthesia Complications N Blood Thinners N Alcohol Overuse/Alcohol Abuse N High Cholesterol N Liver Disease N Allergies/Hayfever N Immune System Disorder N Heart Attack (SC) N Mental Illness N Neurological Problems N Diabetes N Seizures/Epilepsy N Sleep Apnea N Hypertension N Osteoporosis N Gynecological HistoryNo gynecological history recorded. Obstetrics History GPAL:G 0 P 0 0 0 0 Past Encounters Encounter ID Performer Location Encounter Start Date Encounter Closed Date Diagnosis/Indication Diagnosis SNOMED-CT Code Diagnosis ICD10 Code Diagnosis Note [id number] [facility] [place] [address] 11/01/2016 19:07:23 11/01/2016 19:07:23 [id number] JENIFER CANTU PA-C [facility] [address] [place] [address] 02/22/2024 09:53:37 02/22/2024 13:37:55 Pain of right knee joint 1365043494 21370 M25.561 Osteoarthr itis of right knee joint 5496899353 24058 M17.11 Mrs. Zamorano is a pleasant 73-year-ol d female here today for initial evaluation of right knee pain. She reports she has had several years of difficulty with this knee. She has tried over-the-c ounter anti-infla mmatories and Tylenol with minimal relief. She states she has tried 2 different cortisone injections with minimal relief. She is here today to discuss next steps and was recommende d to seek consultati on with Dr. Sarkis feliz.We discussed patients findings of end stage knee osteoarthr itis (OA) today, reviewed radiograph s with patient, answering all questions and concerns. Radiograph s personally reviewed at today's encounter. We discussed that OA is the most common form of arthritis and the degenerati ve, progressiv e nature of OA that can worsenover time, often resulting in chronic pain and stiffness. We discussed how OA is often known as the wear and tear disease and causes breakdown of the cartilage that cushions the ends ofthe bones in their joints. We discussed common OA symptoms including pain, stiffness, tenderness , aching, loss of flexibilit y, grating sensation, bone spurs, swelling, night time pain, and more. We discussed that we can usually manage them with conservati ve treatments . We discussed these conservati ve treatments today including- staying active, maintainin g a healthy weight, formal physical therapy, exercise, rest/ice/c ompress/el evate (RICE methods), anti- inflammato andrew (NSAIDs), topical gels/cream s, CBD creams/gum mies, natural supplement s, bracing, cortisone injections , and viscosuppl ementation . Additional ly, we discussed a total joint replacemen t and reviewed surgical expectatio ns, physical therapy expectatio ns post operativel y, and reviewed risks and benefits of surgery. Patient has trialed and failed conservati ve treatments . Patient verbalized understand ing and elected to proceed with surgical discussion today. I will set her up with plastic surgery coordinator and have her see Dr. Campbell for formal surgical discussion along with risks/bene fits of a total knee arthroplas ty. 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 [place] trip in [place] from [place]16 [place] to [place]. [id number] MORE Feliz MD [facility] [address] [place] [address] 02/28/2024 10:22:27 02/28/2024 11:23:08 Osteoarthritis of right knee joint [id number] 64513 M17.11 ASSESSMENT : DJD RIGHT knee PLAN: The patient has end stage osteoarthr itis of the RIGHT knee. The patient has failed > 3 months of conservati ve measures including NSAIDs, activity modificati on, corticoste roid injections , etc. The patient has pain daily, affecting his/her activities of daily living, and interferin g with sleep. They wish to proceed with total knee arthroplas ty, which I believe to be reasonable . Per ACR/AAHKS guidelines , arthroplas ty in patients with moderate to severe arthritis should not be delayed simply to engage in additional nonoperati ve treatment options. We reviewed the risks, benefits, and alternativ es to knee replacemen t surgery. We discussed the risk of infection, fracture, neurovascu lar injury, chronic pain, stiffness, instabilit y, aseptic loosening, and component wear. We discussed the risk of medical complicati ons, including but not limited to, VTE, pulmonary complicati ons, cardiac complicati ons, and stroke. All questions were answered to the best of my ability. We did discuss the risk of peroneal nerve palsy in the setting of valgus correction . The patient expresses understand ing and awareness of PCM services, including but not limited to potential cost sharing responsibi lities; only one [facility] can furnish and bill for PCM services during a calendar month, and the patient can stop these services at any time. The patient understand s and has verbally consented to accept PCM services and has been provided a copy of a written explanatio n of this service today. Surgery date: 05-21-24[facility] location: [facility] (patient preference )Special equipment: Elian MC, cemented, CPS availableP re-op clearance: PASSOther medical clearance: DVT prophylaxi s: ASA, TEDAdmissi on status: OUTPATIENT Discharge plan: overnight admissionP T: home health Allergies: noneSkin testing: No [id number] MORE Feliz MD [facility] [address] [place] [address] 05/14/2024 08:19:33 05/18/2024 08:39:30 Osteoarthritis of knee 847782696 M17.11 Mena was seen by Dr Sarkis feliz where surgical plan was discussed and finalized for right total knee arthroplas ty 05/21/24. [id number] MORE Feliz MD SURGERY SCHEDULE [address] [place] [address] 05/24/2024 10:42:36 05/28/2024 12:50:52 [id number] BRONWYN OLIVIER MD [facility]G [facility] [address] [place] [address] 06/06/2024 13:34:13 06/07/2024 04:31:42 Sacral radiculopathy 908477957 M54.18 [id number] JENIFER CANTU PA-C [facility] [address] [address] 06/11/2024 09:39:58 06/11/2024 10:12:24 History of right total knee replacement [id number] 365696 Z96.651 Patient is 3 weeks post op R TKA. Patient reports they are doing well, without complaints . We reviewed 3 week post op expectatio ns and recommenda tions with patient and her daughter present today. Answered all questions and concerns. Pleased with recovery thus far, progressin g to OPPT.Radio graphs obtained today reveal intact TKA implants in good positionin g and alignment, with no evidence of loosening, lysis or RLLs.Physi abimael exam reveals good ROM without pain and a well-heale d surgical incision. We reviewed the expected progressio n of recovery and rehabilita tion from a total knee replacemen t andexplain ed that any symptoms such as nighttime aching and morning stiffness are due to soft tissue weakness, are within expectatio ns at this point post-op and should resolve over time asthey build strength and stamina. RTC in 3 weeks for routine 6 week post op follow up with radiograph s. Health Concerns Section Related Observation LastModified by Organization Detai ls LastModified Time None Recorded Concern Status LastModified by Organization Details LastModified Time None Recorded Advance Directives Directive None Recorded Payers Insurance Date Sequence Insurance Name Policy Number Policy Partida Covered Member ID Partida Member ID Guarantor Name 02/15/2024 1 [employer] (MEDICARE SUPPLEMENT) Sera Zamorano [id number] Anna Marie Zamorano 08/18/2024 2 [facility] (MEDICARE SUPPLEMENT) Anna Marie Zamorano [id number] Anna Marie Zamorano 08/18/2024 1 [place] Anna Marie Zamorano [id number] Anna Marie Zamorano 02/22/2024 2 [employer] (POS) Sera Zamorano [id number] nAna Marie Zamorano 05/28/2024 1 [employer] (MEDICARE SUPPLEMENT) Anna Marie Zamorano [id number] Anna Marie Zamorano Notes Date Note Type Note Provider Name and Address Organization Details Recorded Time 4 text/htm l ROS as noted in the HPI 7-30-24Ms. Kaiden returns today in follow-up for her right knee pain. As noted below, several year history of right knee pain with a known diagnosis of osteoarthritis. She has been managed to this point by Dr. Morris and his team at [facility]. She has been treated with NSAIDs, steroid injections, physical therapy, and activity modification. Waning efficacy from these interventions. She has failed greater than 3 months of nonsurgical management. She is continue to report primarily lateral based right knee pain. Frequent mechanical symptoms, and crepitus. She notes progressive valgus deformity. She rates the overall complement of her pain at 7/10. Pain daily, with every step. She is now endorsing night and rest pain. She now feels that her pain is affecting her activities of daily living. She presents to discuss TKA as a definitive surgical option. PMH otherwise benign. No history of diabetes or CAD. No personal or family history of VTE. Nonsmoker. Her , Dr. Austen Zamorano, is a primary care provider in [place]. 02/22/24 7 year history of RIGHT knee pain. stepped from a block at gym and stepped wrong 7 years ago. Pain has been present ever since. Primary location of pain: unsure of where it's hurtingPosterior pain: No posterior painSeverity of pain: 6/10 on average, 8 at worstMechanical symptoms: occasionalCrepitus: No crepitus.Effusions: No effusionsFrequency of symptoms: dailyNight/rest pain: noExacerbating factors: prolonged weight bearing,ascending and descending stairs, certain flexion activitiesSubjective instability: OccasionalFalls: No Has pretty severe Valgus on R knee Prior treatment:Provider: noneNSAIDs: OTC significant relief.Narcotic medication: no Dose: Prescriber:Steroid injections: yesViscosupplementation: no relief. Date of last inj:PT: Yes Location: When: at time of injury 7 years ago Focus: knee Benefit: no relief. Prior aspirationsAmbulatory aids/assistive device: nonePrior surgery on knee: none MORE HERNANDEZ MD [facility] [place], [address], [place] [facility] 02/28/2024 17:34:18 4 text/htm l ROS as noted in the HPI Mena Zamorano is a 73-year-old woman with low back pain radiating to the right leg returns for follow-up visit. She had a recent TKA and presented to the ED on 05/25 with severe pain radiating along the right S1 distribution. She was discharged with pain medication and Lyrica. Since then, she has been pain-free in her leg. No new issues or concerns. She has chronic bladder dysfunction for years that has remained unchanged. BRONWYN OLIVIER MD [facility] [place], [address], [facility] 06/06/2024 14:54:15 4 text/htm l 06-11-24: Patient is 3 weeks s/p R TKA (05/21/24).Pain is improvingCurrently taking no doses per day of narcotic.Ambulating with no assistive devicePT: home health Denies fevers, chills, or wound drainage.They do not request a refill of pain medicine. JENIFER CANTU PA-C [address] [place], [address], [facility] 06/11/2024 12:28:25 OBGyn Episode No OBEpisode recorded.
--- OUTSIDE RECORDS SUMMARY | 2025-02-22 10:03 | XMS_ITS | Referral Summary ---
Author Organization [email or web address] ([place], [place], [place], [place]) Address [address] [place] [address] Care Team Providers Care District Manager In Training Name Role Phone David Hidalgo MD Primary Care Provider [phone] Allergies No known active allergies Medications sertraline [...] drink = 0.6 oz pur e alcohol) [facility] - Mental Health Answer Date Recorde [...] Date Yassine rded Speak language other than Bolivian at home Not on file 08/19/2023 Want [...] Info) Description 04/18/2025 11:00 AM EDT Appointment [address] [place] [address] Helio Garvey MD [address] [place] [address] [address] [place] [address] Medical Devices Implanted Type Area Umbrella Mender Device Identifier Shelf Expiration Date Model / Serial / Lot Cement Bone Smplx Hv 6194-1-001 - [id number] Implanted:Qt y: 2 on 05/21/2024 by Wilbert Leo MD at [facility] IMPLANTS Right: Knee ANDREI:[employer] [id number] 08/31/2025 6194-1-00 1 / / [id number] Psn Art Surf Mc 10 Ve8-11ef Rt 85-9121-382- 10 - [id number] Implanted:Qt y: 1 on 05/21/2024 by Wilbert Leo MD at [facility] TOTAL JOINT CONSTRUCT Right: Knee SHAY:SHAY [place] [id number] 01/01/2029 42-5221-0 08-10 [id number] Psn Rev Tib Fx Keel Cmt Sz E R 47-6286-381- 02 - [id number] Implanted:Qt y: 1 on 05/21/2024 by Wilbert Leo MD at [facility] TOTAL JOINT [employer]STRU[employer] Right: Knee SHAY:SHAY US [id number] 04/02/2034 42-5360-0 71-02 [id number] Psn Fem Cr Cmt Ccr Nrw Sz 8 R 71-1701-377- 02 - [id number] Implanted:Qt y: 1 on 05/21/2024 by Wilbert Leo MD at [facility] TOTAL JOINT CONSTRUCT Right: Knee SHAY:SHAY US [id number] 12/18/2033 42-5020-0 64-02 [id number] Procedures Procedure Name Priority Date/Time Associated Diagnosis [...] the next mammogram. At our facility, a tribe marker is positioned over a visible skin [...] cancer. COMPARISON STUDY: 2022 through 2015 from [facility] FINDINGS: Craniocaudal and mediolateral oblique images of [...] Recently Relevant to [place] [address] [address] PART A [place] [address] [place] [address] Advance Directives For more information, please contact: [phone] * Full Code (Latest Code Status on File) Date Activated Date Inactivated Comments 05/21/2024 8:46 AM 05/22/2024 12:28 PM * Full Code Date Activated Date Inactivated Comments 05/21/2024 5:19 AM 05/21/2024 8:46 AM Care Teams District Manager In Training Relationship Specialty Start Date End Date David Hidalgo MD [address] [place] [address] PCP - General 01/17/23
--- OUTSIDE RECORDS SUMMARY | 2025-02-22 10:03 | XMS_ITS | Encounter Summary ---
Author Organization Healthcare Address [address] [place] [address] Care Team Providers Care Vocational Training Director Name Role Phone Helio Garvey MD Primary Care Provider [phone] Encounter Details Date Type Department Care Team (Latest Contact Info) Description 01/16/2025 Travel Social History Tobacco Use Types Packs/Day [...] Info) Description 03/05/2025 10:10 AM EDT Appointment [facility] Radiology [address], [address] [place] [address] 03/05/2025 10:50 AM EDT Office Visit [facility] Orthopaedic Surgery & Sports Medicine [address], [address] [place] [address] Miguelito Rodriguez MD [address] [place] [address] 05/17/2025 11:00 AM EDT Office Visit Professional [facility] [address], [address] [place] [address] Merly Triplett PA [address] [place] [address] documented as of this encounter Visit Diagnoses Not on filedocumented in this encounter Additional Health Concerns Assessment Noted Time A fall risk assessment has been complete d for the patient 01/01/2025 1:31 PM EDT A Body Mass Index follow-up plan has been documented for the patient 01/01/2025 2:13 PM EDT documented as of this encounter Care Teams Vocational Training Director Relationship Specialty Start Date End Date Helio Garvey MD [address] [place] [address] PCP - General 12/12/24 documented as of this encounter
--- OUTSIDE RECORDS SUMMARY | 2025-02-22 10:03 | XMS_ITS | Clinical Summary ---
Author Organization Healthcare Address [address] [place] [address] Care Team Providers Care Shear Operator Name Role Phone Helio Garvey MD Primary Care Provider [phone] Allergies No known active allergies Medications Coenzyme Q10 (COQ-10 PO) Take 1 capsule by mouth daily. Active Probiotic Product (ALIGN PO) Take 1 tablet by mouth 1 (one) time each day. Active Magnesium 100 MG capsule Take 2 capsules by mouth daily. Active ALPRAZolam (Xanax) 0.25 MG tablet Take 1 tablet by mouth as needed. Active buPROPion XL (Wellbutrin XL) 150 MG 24 hr tablet Take 1 tablet by mouth daily. Active buPROPion XL (Wellbutrin XL) 300 MG 24 hr tablet Take 1 tablet by mouth every morning. Active levothyroxine (Synthroid, Levoxyl) 150 MCG tablet Take 1 tablet by mouth daily. Active metoprolol succinate XL (Toprol-XL) 50 MG 24 hr tablet Take 1 tablet by mouth daily. Active omeprazole (PriLOSEC) [address] capsule Take 1 capsule by mouth 1 (one) time each day. 4 Active rosuvastatin (Crestor) 10 MG tablet Take 1 tablet by mouth daily. Active sertraline (Zoloft) 100 MG tablet Take 1.5 tablets by mouth 1 (one) time each day. 4 Active timolol (Timoptic) 0.5 % ophthalmic solution Administer 1 drop into both eyes daily. Active oxyCODONE-aceta minophen (Percocet) 5-325 MG tablet Take 1 tablet by mouth every 4 hours. 5 Active ibuprofen 600 MG tablet Take by mouth every 6 hours as needed for mild pain. Active acetaminophen (Tylenol 8 Hour) 650 MG ER tablet Take 1 tablet by mouth every 8 hours as needed for mild pain. Do not crush, chew, or split. Active meloxicam (Mobic) 15 MG tablet Take 1 tablet by mouth as needed for mild pain. Active senna (Senokot) 8.6 MG tablet take two tablets by mouth at bedtime as needed 5 Active Myrbetriq 25 MG tablet Take 1 tablet by mouth daily. 5 Active aspirin (Ecotrin) 325 MG EC tablet Take 1 tablet by mouth daily. Active ergocalciferol (Vitamin D-2) 1.25 MG (30233 UT) capsule Take 1 capsule by mouth 1 (one) time per week. 4 capsule 1 5 01/25/20 25 Active Problems Problem Noted Date Diagnosed Date Age-related osteoporosis with current pathologic al fracture 01/23/2025 Resolved Problems Problem Noted Date Diagnosed Date Resolved Date Fall 11/18/2024 11/19/2024 Intertrochanteric fracture o f right femur, closed, initial encounter 11/16/2024 11/19/2024 Closed intertrochanteric fra cture of hip, right, initial encounter 11/16/2024 11/19/2024 Encounters Date Type Department Care Team Description 02/12/2025 Telephone [facility] Infusion [address] [place] [address] Allie Calles, PharmD 01/23/2025 11:20 AM EDT Office Visit [facility] [address], [address] [place] [address] Merly Triplett, PA Age-related osteoporosis with current pathological fracture, initial encounter (Primary Dx); Vitamin D deficiency 01/23/2025 Travel 01/16/2025 Travel 01/02/2025 Telephone [facility] Orthopaedic Surgery & Sports Medicine [address], [address] [place] [address] Miguelito Rodriguez MD HCN - Patient Message 01/01/2025 1:50 PM EDT Office Visit [facility]opa[facility] Surgery & Sports Medicine [address], [address] [facility] [address] [place] [address] Miguelito Rodriguez MD Closed intertrochanteric fracture of hip, right, initial encounter (Primary Dx) 01/01/2025 12:49 PM EDT - 01/01/2025 11:59 PM EDT Hospital Encounter [facility] Radiology [address], [address] [place] [address] Closed intertrochanteric fracture of hip, right, initial encounter Discharge Disposition: Home or Self Care 01/01/2025 Travel 12/31/2024 Travel 12/12/2024 12:43 PM EDT - 12/12/2024 11:59 PM EDT Hospital Encounter Professional [facility] [address] [place] [address] Age-related osteoporosis with current pathological fracture, initial encounter Discharge Disposition: Home or Self Care 12/12/2024 10:40 AM EDT Office Visit [facility] [address] , [address] [place] [address] Merly Triplett PA Vitamin D deficiency (Primary Dx); Age-related osteoporosis with current pathological fracture, initial encounter 12/12/2024 Travel 12/05/2024 1:30 PM EDT Office Visit [facility] [address], [address] [place] [address] [address] [place] [address] Penny Robert PA Closed intertrochanteric fracture of hip, right, initial encounter 12/05/2024 Travel 11/28/2024 Telephone [facility] Nephrology, [facility] [address], [address] [place] [address] Nephrology, Physician, from Last 3 Months Immunizations Immunization Administration Dates Next Due Influenza, high-dose, quadrivalent 07/17/2023, Influenza, injectable, quadrivalent, preservativ e free 05/23/2018,04/22/2017 Influenza, trivalent, adjuvanted 08/27/2024 Pneumococcal Conjugate PCV 13 05/23/2018 Rsv, Bivalent, Protein Subun it Rsvpref, Diluent Reconstituted, 0.5mL, PF 08/27/2024 Tdap 11/16/2024 Social History Tobacco Use Types Packs/Day Years [...] F) 01/23/2025 11:46 AM EDT Respiratory Rate 16 11/20/2024 8:17 AM EDT Oxygen Saturation 95% 01/23/2025 11:46 AM EDT Inhaled Oxygen Concentration - - Weight 82.2 kg (181 lb 3.2 oz) 01/23/2025 11:46 AM EDT Height 167.6 cm (5' 6 ) 01/23/2025 11:46 AM EDT Body Mass Index 29.25 01/23/2025 11:46 AM EDT Plan of Treatment Upcoming Encounters Date Type Department Care Team (Late st Contact Info) Description 03/05/2025 10:10 AM EDT Appointment [facility] Radiology [address], [address] [place] [address] 03/05/2025 10:50 AM EDT Office Visit [facility]opa[facility] Surgery [facility] Sports Medicine [address], [address] [place] [address] Miguelito Rodriguez MD [address] [place] [address] 05/17/2025 11:00 AM EDT Office Visit [facility] [address], [address] [place] [address] Merly Triplett PA [address] [place] [address] Health Maintenance Due Date Last Done Comments [facility]-Bone Density Scan 1950 [facility]-Medicare Annual Wellness (AWV) 1950 [facility]-Infant/Child/Adol SDOH Screenings 1950 [facility]- SDOH Screenings 1970 [facility]-Adult SDOH Screenings 1970 CT Colonography 1997 Colonoscopy 1997 FIT-DNA 1997 FIT 1997 FOBT 1997 Sigmoidoscopy 1997 [facility]-Colorectal Cancer Screening 1997 [facility]-Zoster Vaccines (1 of 2) 2002 [facility]-Pneumococcal Vaccine: 50+ Years (2 of 2 - PPSV23) 07/18/2018 05/23/2018 LLZ-QVXME-14 Vaccine ( season) 2024 05/20/2021, 09/08/2020, 08/07/2020 [facility]-Influenza Vaccine (#1) 04/01/202508/27, 07/17/2023, 05/15/2022, Additional history exists [facility]-Depression Screening 01/23/2026 01/23/2025 [facility]-Breast Cancer Screening 04/16/202604/01, 04/16/2024, 03/01/2023, Additional history exists [facility]-DTaP,Tdap,and Td Vaccines (2 - Td or Tdap) 11/16/2034 11/16/2024 [facility]-RSV Vaccine: 60+ Years or Completed 08/27/2024 [facility]-Hepatitis C Screening Completed 11/16/2024 [facility]-Obesity Intervention Completed 025, 01/01/2025, 12/12/2024, Additional history exists HPV Vaccines Aged Out No longer eligi ble based on patient's age to complete this topic [facility]-HIB Vaccines Aged Out No longer e ligible based on patient's age to complete this topic [facility]-Hepatitis A Vaccines Aged Out No longer eligible based on patient's age to complete this topic [facility]-IPV Vaccines Aged Out No longer e ligible based on patient's age to complete this topic [facility]-Rotavirus Vaccines Aged Out No lo nger eligible based on patient's age to complete this topic Medical Devices Implanted Type Area Medical Care Evaluation Specialist Device Identifier Shelf Expiration Date Model / Serial / Lot Nail Interm Rt [id number] 130deg Gamma4 - S. - [id number] Implanted:Qty: 1 on 11/17/2024 by Miguelito Rodriguez MD at [facility] Nail Right: Femur [employer] ([facility])-[id number] 12/29/2033 [id number] / . / [id number] Screw Lag D10.5x95mm - S. - [id number] Implanted:Qty: 1 on 11/17/2024 by Miguelito Rodriguez MD at [facility] Screw Right: Femur [employer] ([facility])-[id number] 07/31/2034 [id number] / . / [id number] Screw Locking T2 D5x35 - [id number] Implanted:Qty: 1 on 11/17/2024 by Miguelito Rodriguez MD at [facility] Right: Femur [employer] ([facility])-[id number] 07/31/2034 [id number] / / Procedures Procedure Name Priority Date/Time Associated Diagnosis Comments XR HIP RIGHT 2 OR 3 VIEWS Routine 01/01/2025 1:05 PM EDT Closed intertrochanteric fracture of hip, right, initial encounter DEXA VERTEBRAL FRACTURE ASSESSMENT Routine 12/12/2024 12:44 PM EDT Age-related osteoporosis with current pathological fracture, initial encounter RENAL FUNCTION PANEL, PLASMA Routine 12/12/2024 11:56 AM EDT Age-related osteoporosis with current pathological fracture, initial encounter BONE SPECIFIC ALKALINE PHOSPHATASE Routine 12/12/2024 11:56 AM EDT Age-related osteoporosis with current pathological fracture, initial encounter C-TELOPEPTIDE Routine 12/12/2024 11:56 AM EDT Age-related osteoporosis with current pathological fracture, initial encounter VITAMIN D 25 HYDROXY Routine 12/12/2024 11:56 AM EDT Age-related osteoporosis with current pathological fracture, initial encounter VITAMIN D, 1, 25-DIHYDROXY Routine 12/12/2024 11:56 AM EDT Age-related osteoporosis with current pathological fracture, initial encounter PTH INTACT TOTAL Routine 12/12/2024 11:5 6 AM EDT Age-related osteoporosis with current pathological fracture, initial encounter HEPATITIS C ANTIBODY - ED W/REFLEX TO HCV QUANT PCR Routine 11/16/2024 11:33 PM EDT from Last 3 Months or Most Recently Relevant to Health Maintenance Results * XR Hip Right 2 or [...] Pasha Morales MD on 01/01/2025 1:58 PM Penny FLOOD IMG XR PROCEDURES Final Resul t * Dexa Vertebral Fracture Assessment (12/12/2024 12:44 PM EDT) Anatomical Region Laterality Modality Body Radio Fluoroscop y Narrative 12/16/2024 11:46 PM EDT [facility] [address] [place] [address] DXA Bone Densitometry Report: [12/12/2024] BMD test performed using the Janalakshmi DXA System (analysis version: 14.10) manufactured by [employer] REFERRING PROVIDER: Dr. Merly Triplett PA CLINICAL INFORMATION: osteoporosis PATIENT NAME: Anna Marie Richey PATIENT AGE: 74 y.o. LEGAL SEX: female RADIOGRAPHIC VIEWS: Sites scanned: VFA COMPARISON STUDY: VFA Prior studies are not available for comparison FINDINGS: VFA: LVA Morphometry performed on T8-L4 vertebrae: There is no e/o vertebral compression deformity on the VFA study TREATMENT RECOMMENDATIONS: Work up for secondary osteoporosis and metabolic bone disease could be considered based on clinical indications. Findings should also be interpreted in the context of axial BMD measurements from a full bone density report. Consider additional imaging of the spine if clinically indicated Suggest general measures to optimize calcium and vitamin D status, fall prevention measures and reduce fracture risk. Consider repeating this study in 2 year(s) or as clinically indicated to assess bone density change or response to treatment (should be performed on the same DXA scanner to allow for direct comparison and calculation of change in BMD). us Merly FLOOD IMG DXA PROCEDURES Final Res ult * Bone Specific Alkaline Phosphatase (12/12/2024 11:56 AM EDT) [facility] Bone Specific Alkaline Phosphatase 27.8 ug/L 12/12/2024 6:33 PM EDT [facility] Comment: BSAP (Ostase) Reference Values, Female, age 18 years and up: Premenopausal: 4.5 to 16.9 ug/L Postmenopausal: 7.0 to 22.4 ug/L Blood Venous blood specimen / Unknown Venipuncture / Unknown 12/12/2024 11:56 AM EDT 12/12/2024 11:56 AM EDT [facility] FLOOD LAB REF LAB BLOOD AND FLUID ORD Final Result [facility] [address] [place] [address] * C-Telopeptide (12/12/2024 11:56 AM EDT) Pathologist [facility] C Telopeptide Beta Cross Linked Serum Result 461 pg/mL 12/15/2024 10:18 PM EDT e(ye)[facility]) Blood Venous blood specimen / Unknown Venipuncture / Unknown 12/12/2024 11:56 AM EDT 12/12/2024 11:56 AM EDT Narrative e(ye)BRAINKALLIE) - 12/15/2024 10:18 PM EDT Premenopausal Females: 136-689 pg/mL Postmenopausal Females: 177-1015 pg/mL REFERENCE INTERVAL: C-Telopeptide, Uyuk-Yjpti-Dbpqow, Serum Access complete set of age- and/or gender-specific reference intervals for this test in the [employer] ([employer]). Performed By: [facility] [address] [place] [address] Sliver Lap Tender: Salomón Menchaca MD, PhD CLIA Number: [id number] Mer[facility] FLOOD LAB BLOOD ORDERABLES Final R esult [facility] UMAIR) [address] [place] [address] * Vitamin D 1,25 Dihydroxy (12/12/2024 11:56 AM EDT) VITAMIN D, 1, 25-DIHYDROXY 44.8 19.9 - 79.3 pg/mL 12/13/2024 4:54 AM EDT [facility] Blood Venous blood specimen / Unknown Venipuncture / Unknown 12/12/2024 11:56 AM EDT 12/12/2024 11:56 AM EDT [facility] FLO[facility] LAB BLOOD ORDERABLES Final R esult Performing Organization Address City/[facility]/ZIP Co de Phone Number [facility] [address] [place] [address] * Vitamin D 25 Hydroxy (12/12/2024 11:56 AM EDT) Vitamin D 25 Hydroxy 30.0 20.0 - 80.0 ng/mL 12/12/2024 4:39 PM EDT [facility] Blood Venous blood specimen / Unknown Venipuncture / Unknown 12/12/2024 11:56 AM EDT 12/12/2024 11:56 AM EDT Narrative [facility] - 12/12/2024 4:39 PM EDT Testing performed on [employer] Selector, standardized against NIST SRM 2972. When testing samples from patients whose predominant form of vitamin D is vitamin D2, such as patients receiving vitamin D2 supplementation, results that are subtherapeutic should be confirmed with another method, such as LC-MS/MS, before being used for patient management. Vitamin D, 25-Hydroxy reference range, age 18 years and up: Deficiency: <12 ng/mL Insufficiency: 12 to 19 ng/mL Sufficiency: 20 to 80 ng/mL Possible toxicity: >100 ng/mL [facility] FLOOD LAB BLOOD ORDERABLES Final R esult Performing Organization Address City/[facility]/ZIP Co de Phone Number [facility] [address] [place] [address] * PTH Intact Total (12/12/2024 11:56 AM EDT) PTH Intact Total 55 9 - 77 pg/mL 12/12/2024 4:23 PM EDT [facility] Blood Venous blood specimen / Unknown Venipuncture / Unknown 12/12/2024 11:56 AM EDT 12/12/2024 11:56 AM EDT Narrative [facility] - 12/12/2024 4:23 PM EDT Assay performed by immunoassay at the [facility]. Performed on [employer] Selector chemiluminescent immunoassay, tractable to the World Health Organization's first international standard for PTH from the [facility], Code 79/500. Results obtained from different test methods or kits cannot be used interchangeably. [facility] FLOOD LAB BLOOD ORDERABLES Final R esult Performing Organization Address City/[facility]/ZIP Co de Phone Number [facility] [address] [place] [address] * Renal Function Panel, Plasma (12/12/2024 11:56 AM EDT) Glucose, Plasma 95 74 - 99 mg/dL 12/12/2024 2:50 PM EDT [facility] BUN, Plasma 16 8 - 23 mg/dL 12/12/2024 2:50 PM EDT [facility] Creatinine, Plasma 0.64 0.60 - 1.10 mg/dL 12/12/2024 2:50 PM EDT [facility] BUN/Creatinine Ratio 25 12/12/2024 2:50 PM EDT [facility] Sodium, Plasma 141 136 - 145 mmol/L 12/12/2024 2:50 PM EDT [facility] Potassium, Plasma 4.3 3.6 - 4.9 mmol/L 12/12/2024 2:50 PM EDT [facility] Chloride, Plasma 104 97 - 107 mmol/L 12/12/2024 2:50 PM EDT [facility] CO2, Plasma 26 22 - 29 mmol/L 12/12/2024 2:50 PM EDT [facility] Anion Gap 11 6 - 16 mmol/L 12/12/2024 2:50 PM EDT [facility] Total Calcium, Plasma 9.8 8.9 - 10.2 mg/dL 12/12/2024 2:50 PM EDT [facility] Phosphorus, Plasma 3.8 2.5 - 4.5 mg/dL 12/12/2024 2:50 PM EDT [facility] Albumin, Plasma 4.4 3.5 - 5.2 g/dL 12/12/2024 2:50 PM EDT [facility] eGFRcr 94.0 mL/min/1.7 3m*2 12/12/2024 2:50 PM EDT [facility] Comment:Reported eGFRcr in m L/min/1.73m2 is based the CKD-EPI 2020 equation that does not use a race coefficient. Blood Venous blood specimen / Unknown Venipuncture / Unknown 12/12/2024 11:56 AM EDT 12/12/2024 11:56 AM EDT us Merly FLOOD LAB BLOOD ORDERABLES Final R esult Performing Organization Address [facility] Co de Phone Number [facility] [address] [place] [address] * Hepatitis C Antibody - ED (11/16/2024 11:33 PM EDT) [facility] Signature Hepatitis C Antibody Negative Negative 11/17/2024 12:25 AM EDT [facility] Blood Venous blood specimen / Unknown Venipuncture / Unknown 11/16/2024 11:33 PM EDT 11/16/2024 11:46 PM EDT us Alfredo Frank MD LAB BLOOD ORDERABLES Final Re sult [facility] [address] [place] [address] from Last 3 Months or Most Recently Relevant to Health Maintenance [place] [address] [employer] MEDICARE Advance Directives * Full Code (Latest Code Status on File) Date Activated Date Inactivated Comments 11/17/2024 3:12 PM 11/20/2024 3:13 PM Question Answer Comments I have reviewed the capacity from the link above and, if needed, have updated to appropriate status: Yes * Full Code Date Activated Date Inactivated Comments 11/16/2024 11:48 PM 11/17/2024 3:12 PM Question Answer Comments I have reviewed the capacity from the link above and, if needed, have updated to appropriate status: Yes Care Teams Shear Operator Relationship Specialty Start Date End Date Helio Garvey MD [address] [place] [address] [address] [place] [address] PCP - General 12/12/24
[2025-02-22 10:20] VITALS: BP 144/83; PULSE 63; RESP 17
[2025-02-22] MEDS: ROMOSOZUMAB AQQG 210 MG/2.34 ML SUBCUT (10:20)
== END 2025-02-22 10:35 | disposition home or self-care (01) ==
LOC: INF 10:01
PROVIDERS: PCP Family Medicine; Visit Provider Physician Assistant
DX: M80.00XA Age-related osteoporosis with current pathological fracture, unspecified site, initial encounter for fracture (principal)
CPT/HCPCS: 96372; J3111

== ENCOUNTER 2025-02-25 11:00 | Outpatient (RCR) | payer MEDICARE, OTHER, SELFPAY | END 2025-02-25 23:59 | disposition home or self-care (01) | LOC: PT 11:00 | PROVIDERS: PCP Family Medicine; Visit Provider Physician Assistant | DX: S72.141A Displaced intertrochanteric fracture of right femur, initial encounter for closed fracture (principal) | CPT/HCPCS: 97110; 97530 ==

== ENCOUNTER 2025-03-22 10:02 | Outpatient (CLI) | payer MEDICARE, OTHER, SELFPAY ==
--- OUTSIDE RECORDS SUMMARY | 2017-08-04 11:30 | XMS_ITS | Encounter Summary ---
[facility] Address [address] [place] [address] Care Team Providers Care University Lecturer Name Role Phone Juan Luis Celis MD Primary Care Provider Unavail able Reason for Referral * Diagnostic Imaging (Routine) - Closed Specialty Diagnoses / Procedures Referred By Contac t Referred To Contact Radiology Diagnoses Postmenopausal bleeding Procedures US Non-ob Transvaginal Jazlyn King MD [address] [place] [address] Phone: tel: fax: [facility] Phone: tel: Referral ID Status Reason Start Date Expiration Date Visits Re quested Visits Authorized [id number] Closed 07/19/2017 07/19/2018 1 1 Reason for Visit * Diagnostic Imaging (Routine) - Closed Specialty Diagnoses / Procedures Referred By Contac t Referred To Contact Radiology Diagnoses Postmenopausal bleeding Procedures US Non-ob Transvaginal Jazlyn King MD [address] [place] [address] Phone: tel: fax: [facility] Phone: tel: Referral ID Status Reason Start Date Expiration Date Visits Re quested Visits Authorized [id number] Closed 07/19/2017 07/19/2018 1 1 Encounter Details Date Type Department Care Team (Latest Contact Info) Description 08/04/2017 10:30 AM EST Hospital Encounter [facility] [place] [phone] Postmenopausal bleeding Social History Tobacco Use Types Packs/Day Years Used Date Smoking Tobacco: Former Cigarettes 0.1 10 1 972 - 1981 Alcohol Use Standard Drinks/Week Comments Yes 0 (1 standard drink = 0.6 oz pur e alcohol) Abuse Screen Answer Date Recorded Unsafe at Home or Work/School Not on file Feels Threatened by Someone? Not on file 04/2023 Does Anyone Keep You from Co ntacting Others or Doint Things Outside the Home? Not on file 05/09/2023 Physical Sign of Abuse Present Not on file 1 Housing Stability Answer Date Recorded Current Living Arrangements Not on file 04/2023 Potentially Unsafe Housing Conditions Not on lin e 05/09/2023 Family and Community Support Answer Ingrid e Recorded Help with Day-to-Day Activities Not on file 05/09/2023 Lonely or Isolated Not on file 05/09/2023 Employment Answer Date Recorded Do you want help finding or keeping work or a jesse b? Not on file 05/09/2023 Disabilities Answer Date Recorded Concentrating, Remembering, or Making Decisions Difficulty Not on file 05/09/2023 Doing Errands Independently Difficulty Not on fi le 05/09/2023 Education Answer Date Recorded Help with school or training? Not on file Preferred Language Not on file 05/09/2023 Comments No Sex and Gender Information Value Date Recorded Sex Assigned at Not on file Legal Sex Female 10:11 AM EDT Gender Identity Not on file Sexual Orientation Not on file documented as of this encounter Plan of Treatment Not on file documented as of this encounter Procedures Procedure Name Priority Date/Time Associated Diagnosis Comments US NON-OB TRANSVAGINAL Routine 08/04/2017 11:08 AM EST Postmenopausal bleeding documented in this encounter Results * US Non-ob Transvaginal (08/04/2017 11:08 AM EST) Anatomical Region Laterality Modality Body Ultrasound 08/04/2017 10:5 2 AM EST Narrative 08/04/2017 6:26 PM EST PAT NAME: ANNA MARIE ZAMORANO MED REC#: [id number] DA: 1950 PAT GEND: F PAT TYPE: O EXAM INGRID: [id number] REF PHYS JAZLYN KING Indication ======== Post Menopausal Bleeding. 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 Adequate view. Uterus ====== Uterus: Normal Uterus position: Anteverted Myometrium: Homogeneous Endometrium: Uniform Cervix details: Normal Uterus long 4.0 cm Uterus ap 3.3 cm Uterus tr 4.2 cm Uterus vol 29.6 cm Endometrial thickness, total 3.3 mm Cervical length 2.42 cm Right Ovary ========= Rt ovary: Normal Rt ovary D1 2.3 cm Rt ovary D2 1.3 cm Rt ovary D3 1.9 cm Rt ovary vol 3.0 cm Left Ovary ======== Lt ovary: Normal Lt ovary D1 2.8 cm Lt ovary D2 2.7 cm Lt ovary D3 1.5 cm Lt ovary vol 6.0 cm Cul de Sac ========= Normal. Impression ========= The uterus is small, consistent with the patient's post-menopausal state. Thin, uniform endometrial stripe. Significant endometrial pathology is unlikely. The ovaries appear sonographically normal in size, shape and morphology. Recommendation Follow-up as clinically indicated. Management And Budget Analyst: Renee Lee [facility] Physician: Sameer Mar MD Electronically signed by: Sameer Mar MD at: 18:26 Procedure Note Sameer Mar MD - 08/04/2017 PAT NAME: ANNA MARIE ZAMORANO [facility] REC#: [id number] DA: 1950 PAT GEND: F PAT TYPE: O EXAM INGRID: [id number] REF PHYS JAZLYN KING Indication ======== Post Menopausal Bleeding. 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 Adequate view. Uterus ====== Uterus:Normal Uterus position:Anteverted Myometrium:Homogeneous Endometrium:Uniform Cervix details:Normal Uterus long4.0 cm Uterus ap3.3 cm Uterus tr4.2 cm Uterus vol29.6 cm Endometrial thickness, total3.3 mm Cervical length2.42 cm Right Ovary ========= Rt ovary:Normal Rt ovary D12.3 cm Rt ovary D21.3 cm Rt ovary D31.9 cm Rt ovary vol3.0 cm Left Ovary ======== Lt ovary:Normal Lt ovary D12.8 cm Lt ovary D22.7 cm Lt ovary D31.5 cm Lt ovary vol6.0 cm [place] Sac ========= Normal. Impression ========= The uterus is small, consistent with the patient's post-menopausal state.Thin, uniform endometrial stripe. Significant endometrial pathology is unlikely. The ovaries appear sonographically normal in size, shape andmorphology. Recommendation Follow-up as clinically indicated. Management And Budget Analyst: Renee Lee RDMS Physician: Sameer Mar MD Electronically signed by: Sameer Mar MD at: 18:26 us Jazlyn King MD [facility] US ORDERABLES Final Re sult documented in this encounter Visit Diagnoses Diagnosis Postmenopausal bleeding documented in this encounter Care Teams University Lecturer Relationship Specialty Start Date End Date Juan Luis Celis MD PCP - General Family Medicine 01/29/16 03/30/21 documented as of this encounter
--- OUTSIDE RECORDS SUMMARY | 2019-11-14 13:16 | XMS_ITS | Encounter Summary ---
Author Organization [facility] Address [address] [place] [address] Care Team Providers Care Offset Press Operator Helper Name Role Phone Juan Luis Celis MD Primary Care Provider Unavail able Reason for Referral * Diagnostic Imaging (Routine) - Closed Specialty Diagnoses / Procedures Referred By Contac t Referred To Contact Radiology Diagnoses Abnormal ultrasound Procedures US Non-ob Transvaginal Jazlyn King MD [address] [place] [address] Phone: tel: fax: [address] [address] Phone: tel: fax: Referral ID Status Reason Start Date Expiration Date Visits Re quested Visits Authorized [id number] Closed 11/14/2019 11/13/2020 1 1 Reason for Visit * Diagnostic Imaging (Routine) - Closed Specialty Diagnoses / Procedures Referred By Contac t Referred To Contact Radiology Diagnoses Abnormal ultrasound Procedures US Non-ob Transvaginal Jazlyn King MD [address] [place] [address] Phone: tel: fax: [address] [address] Phone: tel: fax: Referral ID Status Reason Start Date Expiration Date Visits Re quested Visits Authorized [id number] Closed 11/14/2019 11/13/2020 1 1 Encounter Details Date Type Department Care Team (Latest Contact Info) Description 11/14/2019 1:16 PM EDT Hospital Encounter [facility] [place] [phone] Abnormal ultrasound Social History Tobacco Use Types [...] 04/2023 Potentially Unsafe Housing Conditions Not on iln e 05/09/2023 Family and Community Support Answer [...] Narrative 11/14/2019 1:43 PM EDT [id number] DA: 1950 PAT GEND: F PAT TYPE: O EXAM INGRID: [id number] REF PHYS JAZLYN KING Indication ======== Post Menopausal Bleeding History ====== Medical History Other: Several D&C's, 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 Superintendent Job: Renee Lee RDMS Physician: Jazlyn King MD Electronically signed by: Jazlyn King MD at: 13:43 Procedure Note Jazlyn King MD - 11/14/2019 PAT NAME: ANNA MARIE ZAMORANO 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 View: Adequate view Uterus ====== Uterus:Normal Uterus position:Anteverted Myometrium:Homogeneous Endometrium:Uniform Cervix details:Normal Uterus long38 mm Uterus ap32 mm Uterus tr48 mm Uterus Vol30.2 cm Endometrial thickness, total1.6 mm Cervical zazvlq18.1 mm Right Ovary ========= Rt ovary:Normal Rt ovary D127.4 mm Rt ovary D216.9 mm Rt ovary D317.1 mm Left Ovary ======== Lt ovary:Normal Lt ovary D117.2 mm Lt ovary D212.2 mm Lt ovary D316.40 mm Cul de Sac ========= Normal Impression ========= Normal pelvic ultrasound. Thin, uniform endometrial stripe. Significant endometrial pathology isunlikely Recommendation Follow-up as clinically indicated. Superintendent Job: Renee Lee RDMS Physician: Jazlyn King MD Electronically signed by: Jazlyn King MD at: 13:43 us Jazlyn King MD IMG US ORDERABLES Final Re sult documented in this encounter Visit Diagnoses Diagnosis Abnormal ultrasound documented in this encounter Care Teams Offset Press Operator Helper Relationship Specialty Start Date End Date Juan Luis Celis MD PCP - General Family Medicine 01/29/16 03/30/21 documented as of this encounter
--- OUTSIDE RECORDS SUMMARY | 2025-01-23 11:20 | XMS_ITS | Encounter Summary ---
Author Organization Healthcare Address [address] [facility] [place] [address] Care Team Providers Care Certified Registered Nurse Anesthetist Name Role Phone Helio Garvey MD Primary Care Provider [phone] Reason for Referral * Consultation (Routine) - Authorized Specialty Diagnoses / Procedures Referred By Coy ray Referred To Contact Diagnoses Age-related osteoporosis with current pathological fracture, initial encounter Merly Triplett PA [address] [place] [phone] Phone: tel: fax: Referral ID Status Reason Start Date Expiration Date V isits Requested Visits Authorized [id number] Authorized 01/23/2025 07/25/2026 1 1 Reason for Visit * Reason Comments Follow-up Encounter Details Date Type Department Care Team (Late st Contact Info) Description 01/23/2025 11:20 AM EDT Office Visit [facility] [address], [address] [place] [address] Merly Triplett PA [address] [place] [address] Age-related osteoporosis with current pathological [...] regular basis. She denies malabsorption risks. 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 for review of labs - [...] Exercise/Physical activity: Home living situation: lives in [place] with , who is retired family med [...] Care Team (Late st Contact Info) Description 05/17/2025 11:00 AM EDT Office Visit [facility] [address] [facility], [address] [place] [address] Merly Triplett PA [address] [facility] [address] [place] [address] Scheduled Referrals Name Type Priority [...] documented as of this encounter Care Teams Certified Registered Nurse Anesthetist Relationship Specialty Start Date End Date Helio Garvey MD [address] [facility] [address] [place] [phone] PCP - General 12/12/24 documented as of this encounter
--- OUTSIDE RECORDS SUMMARY | 2025-03-05 10:10 | XMS_ITS | Encounter Summary ---
Author Organization Healthcare Address [address] [place] [address] Care Team Providers Care Concrete Grinder Operator Name Role Phone Helio Garvey MD Primary Care Provider [phone] Encounter Details Date Type Department Care Team (Latest Contact Info) Description 03/05/2025 10:10 AM EDT - 03/05/2025 11:59 PM EDT Hospital Encounter [facility] [address], [address] [place] [address] Closed intertrochanteric fracture of hip, right, initial [...] Take 1 tablet by mouth as needed. aspirin (Ecotrin) 325 MG EC tablet Take 1 tablet by mouth daily. buPROPion XL (Wellbutrin XL) 150 MG 24 hr tablet Take 1 tablet by mouth daily. buPROPion XL (Wellbutrin XL) 300 MG 24 hr tablet Take 1 tablet by mouth every morning. Coenzyme Q10 (COQ-10 PO) Take 1 capsule by mouth daily. ergocalciferol 1.25 MG (71283 UT) capsule TAKE ONE CAPSULE BY MOUTH ONCE WEEKLY DIRECTED 02/07/2025 ibuprofen 600 MG tablet Take by mouth every 6 hours as needed for mild pain. levothyroxine (Synthroid, Levoxyl) 150 MCG tablet Take 1 tablet by mouth daily. Magnesium 100 MG capsule Take 2 capsules by mouth daily. metoprolol succinate XL (Toprol-XL) 50 MG 24 hr tablet Take 1 tablet by mouth daily. Myrbetriq 25 MG tablet Take 1 tablet by mouth daily. 01/17/2025 omeprazole (PriLOSEC) [address] capsule Take 1 capsule by mouth 1 (one) time each day. 04/23/2024 Probiotic Product (ALIGN PO) Take 1 tablet [...] Administer 1 drop into both eyes daily. documented as of this encounter Plan of Treatment Upcoming Encounters Date Type Department Care Team (Late st Contact Info) Description 05/17/2025 11:00 AM EDT Office Visit [email or web address] [address] [facility], [address] [place] [address] Merly Triplett PA [address] [facility] [address] [place] [address] documented as of this encounter Procedures Procedure Name Priority Date/Time Associated Diagnosis Comments XR HIP RIGHT 2 OR 3 VIEWS Routine 03/05/2025 11:50 AM EDT Closed intertrochanteric fracture of hip, right, initial encounter documented in this encounter Results * XR Hip Right 2 or 3 Views (including pelvis) (03/05/2025 11:50 AM EDT) Anatomical Region Laterality Modality Lower Extremities, Hip Right Digital R adiography Impressions 03/05/2025 12:34 PM EDT No evidence of hardware complication. Continued healing of the proximal femur fracture. CRITICAL RESULT: No. COMMUNICATION: Per this written report. Drafted by Veronica Schwab MD on 03/05/2025 12:30 PM Final report signed by Veronica Schwab MD on 03/05/2025 12:34 PM Narrative 03/05/2025 12:34 PM EDT CLINICAL INDICATION: post op TECHNIQUE: XR HIP RIGHT 2 OR 3 VIEWS COMPARISON: Radiographs from 12/31/2024 FINDINGS: Intramedullary nail screw fixation of the proximal femur. No evidence of hardware loosening or failure. Similar alignment of the proximal femur fracture fragments with continued healing callus formation. Similar degenerative changes of the right SI joint. The pubic symphysis is intact. Procedure Note Veronica Schwab MD - 03/05/2025 CLINICAL INDICATION: post op TECHNIQUE: XR HIP RIGHT 2 OR 3 VIEWS COMPARISON: Radiographs from 12/31/2024 FINDINGS: Intramedullary nail screw fixation of the proximal femur. No evidence ofhardware loosening or failure. Similar alignment of the proximal femurfracture fragments with continued healing callus formation. Similardegenerative changes of the right SI joint. The pubic symphysis isintact. IMPRESSION: No evidence of hardware complication. Continued healing of the proximalfemur fracture. CRITICAL RESULT: No. COMMUNICATION: Per this written report. Drafted by Veronica Schwab MD on 03/05/2025 12:30 PM Final report signed by Veronica Schwab MD on 03/05/2025 12:34 PM Penny FLOOD IMMatthew XR PROCEDURES Final Resul t documented in this encounter Visit Diagnoses Diagnosis Closed intertrochanteric fracture of hip, right, initial encounter documented in this encounter Additional Health Concerns Assessment Noted Time A fall risk assessment has been complete d for the patient 03/05/2025 11:25 AM EDT A Body Mass Index follow-up plan has been documented for the patient 03/05/2025 1:17 PM EDT documented as of this encounter Care Teams Concrete Grinder Operator Relationship Specialty Start Date End Date Helio aGrvey MD [address] [facility] [address] [place] [address] PCP - General 12/12/24 documented as of this encounter
--- OUTSIDE RECORDS SUMMARY | 2025-03-05 10:50 | XMS_ITS | Encounter Summary ---
Author Organization Healthcare Address [address] [place] [address] Care Team Providers Care Pantograph Operator Name Role Phone Helio Garvey MD Primary Care Provider [phone] Reason for Visit * Reason Comments Follow-up Encounter Details Date Type Department Care Team (Latest Contact Info) Description 03/05/2025 10:50 AM EDT Office Visit [facility]opaedic Surgery [facility] Medicine [address] [place] [address] Miguelito Rodriguez MD [address] [facility] [address] [place] [address] Closed intertrochanteric fracture of hip, right, [...] Sign Reading Time Taken Comments Blood Pressure 128/83 03/05/2025 11:27 AM EDT Pulse 72 03/05/2025 11:27 AM EDT Temperature 36.4 C (97.5 F) 03/05/2025 11:27 AM EDT Respiratory Rate - - Oxygen Saturation 97% 03/05/2025 11:27 AM EDT Inhaled Oxygen Concentration - - Weight 77.1 kg (170 lb) 03/05/2025 11:27 AM EDT Height 167.6 cm (5' 6 ) 03/05/2025 11:27 AM EDT Body Mass Index 27.44 03/05/2025 11:27 AM EDT documented in this encounter Miscellaneous Notes * Progress Notes - Joyce Garcia PA - 03/05/2025 10:50 AM EDT Chief Complaint: s/p IMN right intertrochanteric femur fracture DOS: 11/17/2024 HPI: Anna Marie Richey is a 74 y.o. female who presents to clinic for postoperative follow up s/p the above stated procedure. Patient has been doing well since last visit. Patient has been WBAT with the use of a cane fro balance when outside of the home. She feels she is overall doing quite well andwas discharged from PT last week. They state their pain has been well controlled. Denies fevers, chills, nausea, vomiting. Denies any numbness, tingling. Denies any further trauma or injury. Focused MSK Exam: RLE: No deformity, soft compartments, non tender to palpation ROM: Full/painless/stable at hip, knee, and ankle Motor: Intact HAbd, HF, KE, KF, TA, GSC, EHL, FHL, Ever Sensory: Sensation intact to light touch deep peroneal, superficial peroneal, tibial, sural, saphenous nn Vascular: 2+ dorsalis pedis and posterior tibial pulse, cap refill < 2 sec XRAY: We ordered, reviewed, and interpreted the following images of the right hip which show healing of fracture with hardware in place no signs of loosening or failure Assessment: 74 y.o. female who presents s/p IMN right intertrochanteric femur fracture DOS: 11/17/2024 Plan: Patient is overall doing quite well. Discussed that she may continue to wean away from the use of the cane as she is comfortable. She may continue to WBAT without restrictions. Discussed that x-rays show her fracture is healed. Recommend ice/elevation/OTC medications prn pain/swelling. It is in ouropinion that patient has reached full medical benefit. They are doing well post- operatively and hasno further restrictions from an orthopaedic standpoint. At this time, they may follow up on a PRN basis if symptoms worsen. The patient was given an opportunity to ask questions and all their questions were answered to their satisfaction. Joyce Garcia PA-C Department of Orthopaedic Surgery and Sports Medicine Cosigned by Miguelito Rodriguez MD at 03/05/2025 1:17 PM EDT Associated attestation - Miguelito Rodriguez MD - 03/05/2025 1:17 PM EDT I attest to being involved in more than half the total time in patient care. documented in this encounter Plan of Treatment Upcoming Encounters Date Type Department Care Team (Late st Contact Info) Description 05/17/2025 11:00 AM EDT Office Visit [facility] [address] [facility], [address] [place] [address] Merly Triplett PA [address] [place] [address] documented as of this encounter [...] documented as of this encounter Care Teams Pantograph Operator Relationship Specialty Start Date End Date Helio Garvey MD [address] [facility] [address] [place], [place] [id number] PCP - General 12/12/24 documented as of this encounter
--- OUTSIDE RECORDS SUMMARY | 2025-03-22 10:05 | XMS_ITS | Clinical Summary ---
Author Organization [facility] ([place], [place], [place], [place]) Address [address] [place] [address] Care Team Providers Care Nailer Hand Name Role Phone David Hidalgo MD Primary Care Provider [phone] Allergies No known active allergies Medications sertraline [...] drink = 0.6 oz pur e alcohol) [facility] - Mental Health Answer Date Recorde d [...] Date Yassine rded Speak language other than [place]ruguayan at home Not on file 08/19/2023 Want [...] Info) Description 04/18/2025 11:00 AM EDT Appointment [address] [place] [address] Helio Garvey MD [address] [place] [address] [place] [address] Health Maintenance Due Date Last Done Comments [...] series) 2027 Medical Devices Implanted Type Area Paraffiner Device Identifier Shelf Expiration Date Model / Serial / Lot Cement Bone Smplx Hv 6194-1-001 - [id number] Implanted:Qt y: 2 on 05/21/2024 by Wilbert Leo MD at [facility] IMPLANTS Right: Knee ANDREI:[employer] [id number] 08/31/2025 6194-1-00 [id number] E Psn Art Surf Mc 10 Ve8-11ef Rt 56-9801-906- 10 - [id number] Implanted:Qt y: 1 on 05/21/2024 by Wilbert Leo MD at [facility] TOTAL JOINT CONSTRUCT Right: Knee SHAY:SHAY [id number] 01/01/2029 42-5221-0 08- [id number] Psn Rev Tib Fx Keel Cmt Sz E R 84-6635-478- 02 - [id number] Implanted:Qt y: 1 on 05/21/2024 by Wilbert Leo MD at [facility] TOTAL JOINT CONSTRUCT Right: Knee SHAY:SHAY [place] [id number] 04/02/2034 42-5360-0 71-02 [id number] Psn Fem Cr Cmt Ccr Nrw Sz 8 R 41-3324-936- 02 - [id number] Implanted:Qt y: 1 on 05/21/2024 by Wilbert Leo MD at [facility] TOTAL JOINT CONSTRUCT Right: Knee SHAY:SHAY [id number] 12/18/2033 42-5020-0 64- [id number] Procedures Procedure Name Priority Date/Time Associated Diagnosis [...] the next mammogram. At our facility, a campo marker is positioned over a visible skin [...] cancer. COMPARISON STUDY: 2022 through 2015 from [facility] FINDINGS: Craniocaudal and mediolateral oblique images [...] Recently Relevant to Health [place] [address] MEDICARE PART A B Advance Directives For more information, please contact: [phone] * Full Code (Latest Code Status on File) Date Activated Date Inactivated Comments 05/21/2024 8:46 AM 05/22/2024 12:28 PM * Full Code Date Activated Date Inactivated Comments 05/21/2024 5:19 AM 05/21/2024 8:46 AM Care Teams Nailer Hand Relationship Specialty Start Date End Date David Hidalgo MD [address] [address] PCP - General 01/17/23
--- OUTSIDE RECORDS SUMMARY | 2025-03-22 10:06 | XMS_ITS | Encounter Summary ---
Author Organization [facility] Address [address] [place] [address] Care Team Providers Care Concrete Paving Machine Operator Name Role Phone Helio Garvey MD Primary Care Provider [phone] Encounter Details Date Type Department Care Team (Late st Contact Info) Description 02/12/2025 Telephone [facility] [address] [place] [address] Allie Calles, PharmD Social History [...] Calles, PharmD - 02/12/2025 3:06 PM EDT [facility] has received therapy plan for medication Evenity. [facility] has contacted the patient and are in the process of completing the authorization for preferred site of care, [facility] . Medicare B/Advantage Plan Authorization Information Specialty Medication: Evenity Diagnosis Code: Age-related osteoporosis with current pathological fracture, initial encounter [M80.00XA] J-code/CPT code/S code: J3111 Covered by Medicare B: Yes Does the diagnosis, dose, and frequency match an FDA approved dosing schedule? Yes, list prescribeddose/frequency: Evenity 210 subcutaneously once a month for 12 months Site of Care: [facility] Does patient have an Advantage Plan? No. Will review in 12 months. Patient has been approved to receive infusion treatment at outside facility. [facility] will follow up with facility to make sure patient has been scheduled and received first dose. Specialty Medication: Evenity Filling Pharmacy/SOC: [facility] documented in this encounter Plan of Treatment Upcoming Encounters Date Type Department Care Team (Late st Contact Info) Description 05/17/2025 11:00 AM EDT Office Visit Professional [facility] [employer] [facility] [address] [facility], [address] [place] [address] Merly Triplett PA [address] [place] [address] documented as of this encounter Visit Diagnoses Not on filedocumented in this encounter Additional Health Concerns Assessment Noted Time A fall risk assessment has been complete d for the patient 01/23/2025 11:52 AM EDT A Body Mass Index follow-up plan has been documented for the patient 01/23/2025 12:55 PM EDT documented as of this encounter Care Teams Concrete Paving Machine Operator Relationship Specialty Start Date End Date Helio Garvey MD [address] [place] [address] [address] [place] [address] PCP - General 12/12/24 documented as of this encounter
--- OUTSIDE RECORDS SUMMARY | 2025-03-22 10:06 | XMS_ITS | Encounter Summary ---
Author Organization Healthcare Address [address] [place] [address] Care Team Providers Care Barrel Loader Name Role Phone Helio Garvey MD Primary Care Provider [phone] Encounter Details Date Type Department Care Team [...] 05/17/2025 11:00 AM EDT Office Visit [facility] [address] [facility], [address] [place] [address] Merly Triplett PA [address] [place] [address] documented as of this encounter Visit Diagnoses Not on filedocumented in this encounter Additional Health Concerns Assessment Noted Time A fall risk assessment has been complete d for the patient 01/23/2025 11:52 AM EDT A Body Mass Index follow-up plan has been documented for the patient 01/23/2025 12:55 PM EDT documented as of this encounter Care Teams Barrel Loader Relationship Specialty Start Date End Date Helio Garvey MD [address] [place] [address] [address] [place] [address] PCP - General 12/12/24 documented as of this encounter
--- OUTSIDE RECORDS SUMMARY | 2025-03-22 10:06 | XMS_ITS | Clinical Summary ---
Author Organization [facility] Address [address] [place] [address] Care Team Providers Care Hardwood Faller Name Role Phone David Hidalgo MD Primary Care Provider [phone] Allergies No known active allergies Medications timolol [...] Date Diagnosed Date Urge incontinence 10/07/2022 Annual ENTERPRISE APPLICATION ADMINISTRATOR exam in 02/16/2016 Overview (10/21/2022): SCREENING TESTS [...] Recently Relevant to Health [place] [address] MEDICARE A & B Member Subscriber Plan / Payer (Ef fective 2017-Present) Name:Anna Marie Richey Member ID:[id number] Relation to Subscriber:Self Name:Anna Marie Richey Subscriber ID:[id number] Payer ID:[id number] Group ID:Not on file Type:Not on file Address: [facility] [id number] [place] [id number] Care Teams Hardwood Faller Relationship Specialty Start Date End Date David Hidalgo MD [address] [place] [address] PCP - General Family Medicine 04/22/22
--- OUTSIDE RECORDS SUMMARY | 2025-03-22 10:06 | XMS_ITS | Clinical Summary ---
Author Organization Healthcare Address [address] [place] [address] Care Team Providers Care Therapist Rrt Name Role Phone Helio Garvey MD Primary Care Provider [phone] Allergies No known active allergies Medications Coenzyme [...] by mouth 1 (one) time each day. 04/23/20 24 Active rosuvastatin (Crestor) 10 MG tablet Take 1 tablet by mouth daily. Active sertraline (Zoloft) 100 MG tablet Take 1.5 tablets by mouth 1 (one) time each day. 04/19/20 24 Active timolol (Timoptic) 0.5 % ophthalmic solution Administer 1 drop into both eyes daily. Active ibuprofen 600 MG tablet Take by mouth every 6 hours as needed for mild pain. Active acetaminophen (Tylenol 8 Hour) 650 MG ER tablet Take 1 tablet by mouth every 8 hours as needed for mild pain. Do not crush, chew, or split. Active senna (Senokot) 8.6 MG tablet take two tablets by mouth at bedtime as needed 01/01/20 Active Myrbetriq 25 MG tablet Take 1 tablet by mouth daily. 01/18/20 25 Active aspirin (Ecotrin) 325 MG EC tablet Take 1 tablet by mouth daily. Active ergocalciferol 1.25 MG (78625 UT) capsule TAKE ONE CAPSULE BY MOUTH ONCE WEEKLY DIRECTED 02/08/20 Active oxyCODONE-acet aminophen (Percocet) 5-325 MG tablet Take 1 tablet by mouth every 4 hours. 11/29/19 25 025 Discontinued meloxicam (Mobic) 15 MG tablet Take 1 tablet by mouth as needed for mild pain. 025 Discontinued Active Problems Problem Noted Date Diagnosed Date Age-related osteoporosis with current pathologic al fracture 01/23/2025 Resolved Problems Problem Noted Date Diagnosed Date Resolved Date Fall 11/18/2024 11/19/2024 Intertrochanteric fracture o f right femur, closed, initial encounter 11/16/2024 11/19/2024 Closed intertrochanteric fra cture of hip, right, initial encounter 11/16/2024 11/19/2024 Encounters Date Type Department Care Team Description 03/05/2025 10:50 AM EDT Office Visit [facility] Orthopaedic Surgery & Sports Medicine [address], [address] [place] [address] [address] [place] [address] Miguelito Rodriguez MD Closed intertrochanteric fracture of hip, right, initial encounter (Primary Dx) 03/05/2025 10:10 AM EDT - 03/05/2025 11:59 PM EDT Hospital Encounter [facility] Radiology [address], [address] [place] [phone] Closed intertrochanteric fracture of hip, right, initial encounter Discharge Disposition: Home or Self Care 03/05/2025 Travel 02/12/2025 Telephone [facility] [address] [place] [address] Allie Calles, PharmD 01/23/2025 11:20 AM EDT Office Visit [facility] Bone & Mineral Metabolism [address] [facility], [address] [place] [address] Merly Triplett PA Age-related osteoporosis with current pathological fracture, initial encounter (Primary Dx); Vitamin D deficiency 01/23/2025 Travel 01/16/2025 Travel 01/02/2025 Telephone [facility] Orthopaedic Surgery & Sports Medicine [address], [address] [place] [address] Miguelito Rodriguez MD HCN - Patient Message 01/01/2025 1:50 PM EDT Office Visit [facility] Orthopa[facility] Surgery & Sports Medicine [address], [address] [place] [address] Miguelito Rodriguez MD Closed intertrochanteric fracture of hip, right, initial encounter (Primary Dx) 01/01/2025 12:49 PM EDT - 01/01/2025 11:59 PM EDT Hospital Encounter [facility] Radiology [address], [address] [place] [address] Closed intertrochanteric fracture of hip, right, initial encounter Discharge Disposition: Home or Self Care 01/01/2025 Travel 12/31/2024 Travel from Last 3 Months Immunizations Immunization Administration [...] F) 03/05/2025 11:27 AM EDT Respiratory Rate 16 11/20/2024 8:17 AM EDT Oxygen Saturation 97% 03/05/2025 11:27 AM EDT Inhaled Oxygen Concentration - - Weight 77.1 kg (170 lb) 03/05/2025 11:27 AM EDT Height 167.6 cm (5' 6 ) 03/05/2025 11:27 AM EDT Body Mass Index 27.44 03/05/2025 11:27 AM EDT Plan of Treatment Upcoming Encounters Date Type Department Care Team (Late st Contact Info) Description 05/17/2025 11:00 AM EDT Office Visit [facility] Mineral Met[facility] [address] [facility], [address] [place] [address] Merly Triplett, ALEENA [address] [place] [address] Health Maintenance Due Date Last [...] (2 of 2 - PPSV23) 07/18/2018 05/23/2018 [id number]-[id number]-06 Vaccine (4 - season) 2024 05/20/2021, 09/08/2020, 08/07/2020 [facility]-Influenza Vaccine (#1) 04/01/202508/27, 07/17/2023, 05/15/2022, Additional history exists [facility]-Depression Screening 01/23/2026 01/23/2025 [facility]-Breast Cancer Screening 04/16/202604/01, 04/16/2024, 03/01/2023, Additional history exists [facility]-DTaP,Tdap,and Td Vaccines (2 - Td or Tdap) 11/16/2034 11/16/2024 [facility]-RSV Vaccine: 60+ Years or Completed 08/27/2024 [facility]-Hepatitis C Screening Completed 11/16/2024 [facility]-Obesity Intervention Completed 025, 01/23/2025, 01/01/2025, Additional history exists HPV Vaccines Aged Out [...] this topic Medical Devices Implanted Type Area Ortho Rn Device Identifier Shelf Expiration Date Model / Serial / Lot Nail Interm Rt [id number] X 130deg Gamma4 - S. - [id number] Implanted:Qty: 1 on 11/17/2024 by Miguelito Rodriguez MD at [facility] Nail Right: Femur [employer] ([employer])-[id number] 12/29/2033 [id number] / . / [id number] Screw Lag D10.5x95mm - S. - [id number] Implanted:Qty: 1 on 11/17/2024 by Miguelito Rodriguez MD at [facility] Screw Right: Femur [employer] ([facility])-[id number] 07/31/2034 [id number] / . / [id number] Screw Locking T2 D5x35 - [id number] Implanted:Qty: 1 on 11/17/2024 by Miguelito Rodriguez MD at [facility] Right: Femur [employer] ([facility])-[id number] 07/31/2034 [id number] / / Procedures Procedure Name Priority Date/Time Associated Diagnosis Comments XR HIP RIGHT 2 OR 3 VIEWS Routine 03/05/2025 11:50 AM EDT Closed intertrochanteric fracture of hip, right, initial encounter XR HIP RIGHT 2 OR 3 VIEWS Routine 01/01/2025 1:05 PM EDT Closed intertrochanteric fracture of hip, right, initial encounter HEPATITIS C ANTIBODY - ED W/REFLEX TO HCV QUANT PCR Routine 11/16/2024 11:33 PM EDT from Last 3 Months or Most Recently Relevant to Health Maintenance Results * XR Hip Right 2 or 3 Views (including pelvis) (03/05/2025 11:50 AM EDT) Only the most recent of2 resultswithin the time period is included. Anatomical Region Laterality Modality Lower Extremities, Hip [...] Veronica Schwab MD on 03/05/2025 12:34 PM us Penny FLOOD IMG XR PROCEDURES Final Resul t * Hepatitis C Antibody - ED (11/16/2024 11:33 PM EDT) Hepatitis C Antibody Negative Negative 11/17/2024 12:25 AM EDT [facility] Blood Venous blood specimen / Unknown Venipuncture / Unknown 11/16/2024 11:33 PM EDT 11/16/2024 11:46 PM EDT us Alfredo Frank MD LAB BLOOD ORDERABLES Final Re sult [facility] [address] [place] [address] from Last 3 Months or Most Recently Relevant to Health Maintenance Insurance [facility] [id number] [place] [id number] MEDICARE Advance Directives * Full Code (Latest [...] updated to appropriate status: Yes Care Teams Therapist Rrt Relationship Specialty Start Date End Date Helio Garvey MD [address] [place] [address] [address] [place] [address] PCP - General 12/12/24
--- OUTSIDE RECORDS SUMMARY | 2025-03-22 10:06 | XMS_ITS | Referral Summary ---
Author Organization [employer] ([place], [place], [place], [place]) Address [address] [place] [address] Care Team Providers Care Bench Lay Out Technician Name Role Phone David Hidalgo MD Primary Care Provider [phone] Allergies No known active allergies Medications sertraline [...] drink = 0.6 oz pur e alcohol) [facility] - Mental Health Answer Date Recorde d [...] Date Yassine rded Speak language other than American at home Not on file 08/19/2023 Want [...] Info) Description 04/18/2025 11:00 AM EDT Appointment [address] [place] [address] Helio Garvey MD [address] [place] [address] [address] [place] [address] Medical Devices Implanted Type Area Paper Roller Device Identifier Shelf Expiration Date Model / Serial / Lot Cement Bone Smplx Hv 6194-1-001 - [id number] Implanted:Qt y: 2 on 05/21/2024 by Wilbert Leo MD at [facility] IMPLANTS Right: Knee ANDREI:[employer] [id number] 08/31/2025 6194-1-00 1 / / [id number] E Psn Art Surf Mc 10 Ve8-11ef Rt 15-7349-500- 10 - [id number] Implanted:Qt y: 1 on 05/21/2024 by Wilbert Leo MD at [facility] TOTAL JOINT CONSTRUCT Right: Knee SHAY:SHAY [place] [id number] 01/01/2029 42-5221-0 08-10 [id number] Psn Rev Tib Fx Keel Cmt Sz E R 12-7263-778- 02 - [id number] Implanted:Qt y: 1 on 05/21/2024 by Wilbert Leo MD at [facility] TOTAL JO[employer]STRU[employer] Right: Knee SHAY:SHAY [place] [id number] 04/02/2034 42-5360-0 71-02 [id number] Psn Fem Cr Cmt Ccr Nrw Sz 8 R 77-8814-067- 02 - [id number] Implanted:Qt y: 1 on 05/21/2024 by Wilbert Leo MD at [facility] TOTAL JO[employer]STRU[employer] Right: Knee SHAY:SHAY [place] [id number] 12/18/2033 42-5020-0 64-02 [id number] Procedures Procedure Name Priority Date/Time Associated Diagnosis [...] the next mammogram. At our facility, a absentee-[place] marker is positioned over a visible skin [...] COMPARISON STUDY: 2022 through 2015 from [facility] FINDINGS: Craniocaudal and mediolateral oblique images of [...] Relevant to [place] [address] [place] [address] [place] [address] Advance Directives For more information, please contact: [phone] * Full Code (Latest Code Status on File) Date Activated Date Inactivated Comments 05/21/2024 8:46 AM 05/22/2024 12:28 PM * Full Code Date Activated Date Inactivated Comments 05/21/2024 5:19 AM 05/21/2024 8:46 AM Care Teams Bench Lay Out Technician Relationship Specialty Start Date End Date David Hidalgo MD [address] [place] [address] PCP - General 01/17/23
--- OUTSIDE RECORDS SUMMARY | 2025-03-22 10:06 | XMS_ITS | Encounter Summary ---
Author Organization Healthcare Address [address] [facility] [place] [address] Care Team Providers Care Wig Maker Name Role Phone Helio Garvey MD Primary Care Provider [phone] Encounter Details Date Type Department Care Team (Latest Contact Info) Description 03/05/2025 Travel Social History Tobacco Use Types Packs/Day [...] 05/17/2025 11:00 AM EDT Office Visit [facility] Bone [facility] Mineral Metabolism [address] [place] [address] Merly Triplett PA [address] [place] [address] documented as of this encounter Visit Diagnoses Not on filedocumented in this encounter Additional Health Concerns Assessment Noted Time A fall risk assessment has been complete d for the patient 03/05/2025 11:25 AM EDT A Body Mass Index follow-up plan has been documented for the patient 03/05/2025 1:17 PM EDT documented as of this encounter Care Teams Wig Maker Relationship Specialty Start Date End Date Helio Garvey MD [address] [facility] [address] [place] [address] PCP - General 12/12/24 documented as of this encounter
--- OUTSIDE RECORDS SUMMARY | 2025-03-22 10:06 | XMS_ITS | Encounter Summary ---
Author Organization Healthcare Address [address] [place] [address] Care Team Providers Care Sales Team Leader Name Role Phone Helio Garvey MD Primary Care Provider [phone] Reason for Visit * Reason Onset Date Comments HCN - Patient Message 01/02/2025 Encounter Details Date Type Department Care Team (Late st Contact Info) Description 01/02/2025 Telephone [facility] Orthopaedic Surgery & Sports Medicine [address], [address] [place] [address] Miguelito Rodriguez MD [address] [place] [address] HCN - Patient Message Social [...] Call: Jennifer patient. Maria M with [facility] calling to get a message to clinical staff. She states that the patient is discharging today (01/02/2025) from home care. They are also requesting a call back for clarification on a specific exercise Jennifer had wanted patient doing, they are needing to know how many reps he is wanting patient to complete. Best contact number: Other: [phone] (direct line) Optimal time of day to [...] will receive notification of the communication/outcome via [employer]. documented in this encounter Plan of Treatment Upcoming Encounters Date Type Department Care Team ([facility] st Contact Info) Description 05/17/2025 11:00 AM EDT Office Visit [facility] Bone & Mineral Metabolism [address] [facility], [address] [place] [address] Merly Triplett, ALEENA [address] [facility] [address] [place] [address] documented as of this encounter Visit Diagnoses Not on filedocumented in this encounter Additional Health Concerns Assessment Noted Time A fall risk assessment has been complete d for the patient 01/01/2025 1:31 PM EDT A Body Mass Index follow-up plan has been documented for the patient 01/01/2025 2:13 PM EDT documented as of this encounter Care Teams Sales Team Leader Relationship Specialty [place] [address] [place] [address] [address] [place] [address] PCP - General 12/12/24 documented as of this encounter
--- OUTSIDE RECORDS SUMMARY | 2025-03-22 10:06 | XMS_ITS | Encounter Summary ---
Author Organization [employer] ([place], [place], [place], [place]) Address [address] [place] [address] Care Team Providers Care Long Distance Operator Name Role Phone David Hidalgo MD Primary Care Provider Reason for Referral * Mammography (Routine) - New Request Specialty Diagnoses / Procedures Referred By Coy ray Referred To Contact Diagnoses Visit for screening mammogram Procedures MM digital mammo screen with alexandria bilateral Helio Garvey MD [address] [employer] [address] [place] [address] Phone: tel: fax: Referral ID Status Reason Start Date Expiration Date V isits Requested Visits Authorized [id number] New Request 04/18/2025 04/18/2026 1 1 Encounter Details Date Type Department Care Team (Late st Contact Info) Description 04/16/2024 Outside Orders [facility] Central Scheduling [address] [place] [address] Helio Garvey MD [address] [place] [address] Visit for screening mammogram (Primary Dx) Social History Tobacco Use Types Packs/Day Years Used Date Smoking Tobacco: Never Assessed Family and Community Support Answer Yinka e Recorded Help with Day to Day Activities Not on file 08/19/2023 Feeling Lonely or Isolated Not on file 08/19 Educational Attainment Answer Date Yassine rded Speak language other than Chadian at home Not on file 08/19/2023 Want [...] Info) Description 04/18/2025 11:00 AM EDT Appointment [address] [place] [address] Helio Garvey MD [address] [facility] [address] [place] [address] Scheduled Orders Name Type Priority Associated Diagnoses Orde r Schedule MM digital mammo screen with alexandria bilateral Imaging Routine Visit for screening mammogram Expected: 04/18/2025, Expires: 10/14/2025 documented as of this encounter Visit Diagnoses Diagnosis Visit for screening mammogram- Primary documented in this encounter Care Teams Long Distance Operator Relationship Specialty Start Date End Date David Hidalgo MD [address] [facility] [address] [place] [address] PCP - General 01/17/23 documented as of this encounter
[2025-03-22] MEDS: ROMOSOZUMAB AQQG 210 MG/2.34 ML SUBCUT (10:12)
[2025-03-22 10:15] VITALS: BP 134/75; PULSE 74; RESP 18; TEMP 36.6; O2SAT 95
== END 2025-03-22 10:15 | disposition home or self-care (01) ==
LOC: INF 10:04
PROVIDERS: PCP Family Medicine; Visit Provider Physician Assistant
DX: M80.00XA Age-related osteoporosis with current pathological fracture, unspecified site, initial encounter for fracture (principal)
CPT/HCPCS: 96372; J3111

== ENCOUNTER 2025-04-19 10:02 | Outpatient (CLI) | payer MEDICARE, OTHER, SELFPAY ==
--- OUTSIDE RECORDS SUMMARY | 2017-08-04 11:30 | XMS_ITS | Encounter Summary ---
[facility] [address] [place] [address] Care Team Providers Care Professor Of Geology Name Role Phone Juan Luis Celis MD Primary Care Provider Unavail able Reason for Referral * Diagnostic Imaging (Routine) - Closed Specialty Diagnoses / Procedures Referred By Contac t Referred To Contact Radiology Diagnoses Postmenopausal bleeding Procedures US Non-ob Transvaginal Jazlyn King MD [address] [place] [address] Phone: tel: fax: [facility] Phone: tel: Referral ID Status Reason Start Date Expiration Date Visits Re quested Visits Authorized [id number] Closed 07/19/2017 07/19/2018 1 1 Reason for Visit * Diagnostic Imaging (Routine) - Closed Specialty Diagnoses / Procedures Referred By Contac t Referred To Contact Radiology Diagnoses Postmenopausal bleeding Procedures US Non-ob Transvaginal Jazlyn King MD [address] [place] [address] Phone: tel: fax: [facility] Phone: tel: Referral ID Status Reason Start Date Expiration Date Visits Re quested Visits Authorized [id number] Closed 07/19/2017 07/19/2018 1 1 Encounter Details Date Type Department Care Team (Latest Contact Info) Description 08/04/2017 10:30 AM EST Hospital Encounter [facility] [place] [phone] Postmenopausal bleeding Social History Tobacco Use Types [...] PAT NAME: ANNA MARIE ZAMORANO MED REC#: [id number] DA: 1950 PAT GEND: F PAT TYPE: O EXAM INGRID: [id number] REF PHYS JAZLYN KING Indication ======== Post Menopausal Bleeding. 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 Recommendation Follow-up as clinically indicated. Key Sander: Renee Lee [facility] Physician: Sameer Mar MD Electronically signed by: Sameer Mar MD at: 18:26 Procedure Note Sameer Mar MD - 08/04/2017 PAT NAME: ANNA MARIE ZAMORANO [facility] REC#: [id number] DA: 1950 PAT GEND: F PAT TYPE: O EXAM INGRID: [id number] REF PHYS JAZLYN KING Indication ======== Post Menopausal Bleeding. 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 Recommendation Follow-up as clinically indicated. Key Sander: Renee Lee RDMS Physician: Sameer Mar MD Electronically signed by: Sameer Mar MD at: 18:26 us Jazlyn King MD [facility] [place] ORDERABLES Final Re sult documented in this encounter Visit Diagnoses Diagnosis Postmenopausal bleeding documented in this encounter Care Teams Professor Of Geology Relationship Specialty Start Date End Date Juan Luis Celis MD PCP - General Family Medicine 01/29/16 03/30/21 documented as of this encounter
--- OUTSIDE RECORDS SUMMARY | 2019-11-14 13:16 | XMS_ITS | Encounter Summary ---
Author Organization [facility] Address [address] [place] [address] Care Team Providers Care Levelman Name Role Phone Juan Luis Celis MD Primary Care Provider Unavail able Reason for Referral * Diagnostic Imaging (Routine) - Closed Specialty Diagnoses / Procedures Referred By Contac t Referred To Contact Radiology Diagnoses Abnormal ultrasound Procedures US Non-ob Transvaginal Jazlyn King MD [address] [place] [address] Phone: tel: fax: [address] [address] Phone: tel: fax: Referral ID Status Reason Start Date Expiration Date Visits Re quested Visits Authorized [id number] Closed 11/14/2019 11/13/2020 1 1 Reason for Visit * Diagnostic Imaging (Routine) - Closed Specialty Diagnoses / Procedures Referred By Contac t Referred To Contact Radiology Diagnoses Abnormal ultrasound Procedures US Non-ob Transvaginal Jazlyn King MD [address] [place] [address] Phone: tel: fax: [address] [address] Phone: tel: fax: Referral ID Status Reason Start Date Expiration Date Visits Re quested Visits Authorized [id number] Closed 11/14/2019 11/13/2020 1 1 Encounter Details Date Type Department Care Team (Latest Contact Info) Description 11/14/2019 1:16 PM EDT Hospital Encounter [facility] [place] [phone] Abnormal ultrasound Social History Tobacco Use Types [...] 11/14/2019 1:43 PM EDT [facility] [id number] DA: 1950 PAT GEND: F PAT TYPE: O EXAM INGRID: [id number] REF PHYS JAZLYN KING Indication ======== Post Menopausal Bleeding History ====== Medical History Other: Several D&C's, 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 View: Adequate view Uterus ====== Uterus:Normal Uterus position:Anteverted Myometrium:Homogeneous Endometrium:Uniform Cervix details:Normal Uterus long38 mm Uterus ap32 mm Uterus tr48 mm Uterus Vol30.2 cm Endometrial thickness, total1.6 mm Cervical ttteut36.1 mm Right Ovary ========= Rt ovary:Normal Rt ovary D127.4 mm Rt ovary D216.9 mm Rt ovary D317.1 mm Left Ovary ======== Lt ovary:Normal Lt ovary D117.2 mm Lt ovary D212.2 mm Lt ovary D316.40 mm Cul de Sac ========= Normal Impression ========= Normal pelvic ultrasound. Thin, uniform endometrial stripe. Significant endometrial pathology isunlikely Recommendation Follow-up as clinically indicated. Predictive Maintenance Specialist: Renee Lee RDMS Physician: Jazlyn King MD Electronically signed by: Jazlyn King MD at: 13:43 us Jazlyn King MD IMG US ORDERABLES Final Re sult documented in this encounter Visit Diagnoses Diagnosis Abnormal ultrasound documented in this encounter Care Teams Levelman Relationship Specialty Start Date End Date Juan Luis Celis MD PCP - General Family Medicine 01/29/16 03/30/21 documented as of this encounter
--- OUTSIDE RECORDS SUMMARY | 2025-03-05 10:10 | XMS_ITS | Encounter Summary ---
Author Organization Healthcare Address [address] [place] [address] Care Team Providers Care Spray Dyer Name Role Phone Helio Garvey MD Primary Care Provider [phone] Encounter Details Date Type Department Care Team (Latest Contact Info) Description 03/05/2025 10:10 AM EDT - 03/05/2025 11:59 PM EDT [facility] En[facility] [address], [address] [place] [address] Closed intertrochanteric fracture of hip, right, initial [...] capsule by mouth daily. ergocalciferol 1.25 MG (67078 UT) capsule TAKE ONE CAPSULE BY MOUTH [...] MD on 03/05/2025 12:34 PM Penny FLOOD IMG XR PROCEDURES Final [...] documented as of this encounter Care Teams Spray Dyer Relationship Specialty Start Date End Date Helio Garvey MD [address] [facility] [address] [place] [address] PCP - General 12/12/24 documented as of this encounter
--- OUTSIDE RECORDS SUMMARY | 2025-03-05 10:50 | XMS_ITS | Encounter Summary ---
Author Organization Healthcare Address [address] [place] [address] Care Team Providers Care Cleaning Manager Name Role Phone Helio Garvey MD Primary Care Provider [phone] Reason for Visit * Reason Comments Follow-up Encounter Details Date Type Department Care Team (Latest Contact Info) Description 03/05/2025 10:50 AM EDT Office Visit [facility] Orthopaedic Surgery & Sports Medicine [address], [address] [place] [address] Miguelito Rodriguez MD [address] [facility] [address] [place] [address] Closed intertrochanteric fracture of hip, [...] documented in this encounter Plan of Treatment Not on file documented as of this encounter Visit Diagnoses [...] documented as of this encounter Care Teams Cleaning Manager Relationship Specialty Start Date End Date Helio Garvey MD [address] [facility] [address] [place] [address] PCP - General 12/12/24 documented as of this encounter
--- OUTSIDE RECORDS SUMMARY | 2025-04-19 10:06 | XMS_ITS | Encounter Summary ---
Author Organization Healthcare Address [address] [place] [address] Care Team Providers Care Malt Liquors Sales Representative Name Role Phone Helio Garvey MD Primary Care Provider [phone] Encounter Details Date Type Department Care Team [...] documented as of this encounter Care Teams Malt Liquors Sales Representative Relationship Specialty Start Date End Date Helio Garvey MD [address] [place], [place] [address] PCP - General 12/12/24 documented as of this encounter
--- OUTSIDE RECORDS SUMMARY | 2025-04-19 10:06 | XMS_ITS | Referral Summary ---
Author Organization [employer] ([place], [place], [place], [place]) Address [address] [place] [address] Care Team Providers Care Alliance Consultant Name Role Phone David Hidalgo MD Primary Care Provider [phone] Allergies No known active allergies Medications sertraline [...] drink = 0.6 oz pur e alcohol) [facility] - Mental Health Answer Date Recorde [...] Date Yassine rded Speak language other than [place] Sudanese at home Not on file 08/19/2023 Want [...] Care Team (Late st Contact Info) Description 06/05/2025 3:00 PM EST Appointment [address] [place] [address] Helio Garvey MD [address] [place] [address] [address] [place] [address] Medical Devices Implanted Type Area Mechanical Ordnance Assembler Device Identifier Shelf Expiration Date Model / Serial / Lot Cement Bone Smplx Hv 6194-1-001 - [id number] Implanted:Qt y: 2 on 05/21/2024 by Wilbert Leo MD at [facility] IMPLANTS Right: Knee ANDREI:[employer] [id number] 08/31/2025 6194-1-00 1 / / [id number] Psn Art Surf Mc 10 Ve8-11ef Rt 76-7315-752- 10 - [id number] Implanted:Qt y: 1 on 05/21/2024 by Wilbert Leo MD at [facility] T[employer]STRU[employer] Right: Knee SHAY:SHAY US [id number] 01/01/2029 42-5221-0 08-10 [id number] Psn Rev Tib Fx Keel Cmt Sz E R 39-9596-644- 02 - [id number] Implanted:Qt y: 1 on 05/21/2024 by Wilbert Leo MD at [facility] T[employer] Right: Knee SHAY:SHAY US [id number] 04/02/2034 42-5360-0 71-02 [id number] Psn Fem Cr Cmt Ccr Nrw Sz 8 R 70-3941-839- 02 - [id number] Implanted:Qt y: 1 on 05/21/2024 by Wilbert Leo MD at [facility] TOTAL [employer]STRU[employer] Right: Knee SHAY:SHAY [place] [id number] 12/18/2033 42-5020-0 64-02 [id number] Procedures Procedure Name Priority Date/Time Associated Diagnosis [...] the next mammogram. At our facility, a sun'aq marker is positioned over a visible skin [...] cancer. COMPARISON STUDY: 2022 through 2015 from [facility] FINDINGS: Craniocaudal and mediolateral oblique images of both breasts were obtained in 2D and DBT modes. Synthesized views were reconstructed from DBT data. The breast tissue is almost entirely fatty. There is no evidence of dominant mass, architectural distortion, or suspicious calcifications. The mammogram was interpreted with the benefit of computer aided detection (CAD). David Hidalgo MD [facility] MAMMOGRAPHY ORDERABLES Final Result from Last 3 Months or Most Recently Relevant to [place] [address] [address] [place] [address] Advance Directives For more information, please contact: [phone] * Full Code (Latest Code Status on File) Date Activated Date Inactivated Comments 05/21/2024 8:46 AM 05/22/2024 12:28 PM * Full Code Date Activated Date Inactivated Comments 05/21/2024 5:19 AM 05/21/2024 8:46 AM Care Teams Alliance Consultant Relationship Specialty Start Date End Date David Hidalgo MD [address] [place] [address] PCP - General 01/17/23
--- OUTSIDE RECORDS SUMMARY | 2025-04-19 10:06 | XMS_ITS | Clinical Summary ---
Author Organization [email or web address] ([place], [place], [place], [place]) Address [address] [place] [address] Care Team Providers Care Bushler Name Role Phone David Hidalgo MD Primary Care Provider Allergies No known active allergies Medications sertraline [...] = 0.6 oz pur e alcohol) [facility] - Mental Health Answer Date Recorde d [...] Date Yassine rded Speak language other than Czech at home Not on file 08/19/2023 Want [...] Info) Description 06/05/2025 3:00 PM EST Appointment [address] [place] [address] [place] [address] [place] [address] [address] [place] [address] Health Maintenance Due Date Last Done Comments CT Colonography 1952 Colonoscopy 1952 Colorectal Cancer Screening 1952 DXA SCAN 1952 FOBT/FIT 1952 Fit-DNA (Cologuard) 1952 Sigmoidoscopy 1952 Hepatitis C Screening 1970 DTAP/TDAP/TD VACCINES (1 - Tdap) 1971 Shingles Vaccine (Zoster) (1 of 2) 2002 Medicare Initial AWV [id number] 07/02/2018 Pneumococcal 50+ years (2 of 2 - PCV20 or PCV21) 05/23/2019 05/23/2018 Falls Risk Screening 08/01/2024 COVID-19 VACCINE (4 - 2024-2 6 season) 2025 05/20/2021, 09/08/2020, 08/07/2020 Influenza Vaccine (#1) 2025 Depression Screening (12+) 05/14/2025 05/14/2024 Tobacco Cessation Counseling and Screening (12+) 05/14/2025 05/14/2024 Breast Cancer Screening 04/16/2026 04/16/20 24, 03/01/2023, 01/27/2022, Additional history exists Respiratory Syncytial Virus (RSV) Adult or (1 - 1-dose 75+ series) 2027 Medical Devices Implanted Type Area Human Service Specialist Device Identifier Shelf Expiration Date Model / Serial / Lot Cement Bone Smplx Hv 6194-1-001 - [id number] Implanted:Qt y: 2 on 05/21/2024 by Wilbert Leo MD at [facility] IMPLANTS Right: Knee ANDREI:[employer] [id number] 08/31/2025 6194-1-00 [id number] E Psn Art Surf Mc 10 Ve8-11ef Rt 58-0306-403- 10 - [id number] Implanted:Qt y: 1 on 05/21/2024 by Wilbert Leo MD at [facility] TOTAL JOINT CONSTRUCT Right: Knee SHAY:SHAY [id number] 01/01/2029 42-5221-0 08- [id number] Psn Rev Tib Fx Keel Cmt Sz E R 40-5137-590- 02 - [id number] Implanted:Qt y: 1 on 05/21/2024 by Wilbert Leo MD at [facility] TOTAL JOINT CONSTRUCT Right: Knee SHAY:SHAY [id number] 04/02/2034 42-5360-0 71-02 [id number] Psn Fem Cr Cmt Ccr Nrw Sz 8 R 06-4427-269- 02 - [id number] Implanted:Qt y: 1 on 05/21/2024 by Wilbert Leo MD at [facility] TOTAL JOINT CONSTRUCT Right: Knee SHAY:SHAY [id number] 12/18/2033 42-5020-0 64-02 [id number] Procedures Procedure Name Priority Date/Time Associated Diagnosis [...] the next mammogram. At our facility, a [place] marker is positioned over a visible skin [...] Recently Relevant to Health Maintenance [place] [address] MEDICARE PART A B Advance Directives For more information, please contact: [phone] * Full Code (Latest Code Status on File) Date Activated Date Inactivated Comments 05/21/2024 8:46 AM 05/22/2024 12:28 PM * Full Code Date Activated Date Inactivated Comments 05/21/2024 5:19 AM 05/21/2024 8:46 AM Care Teams Bushler Relationship Specialty Start Date End Date David Hidalgo MD [address] [address] PCP - General 01/17/23
--- OUTSIDE RECORDS SUMMARY | 2025-04-19 10:06 | XMS_ITS | Clinical Summary ---
Author Organization Healthcare Address [address] [place] [address] Care Team Providers Care Stock House Worker Name Role Phone Helio Garvey MD Primary Care Provider [phone] Allergies No known active allergies Medications Coenzyme [...] tablets by mouth at bedtime as needed Active Myrbetriq 25 MG tablet Take 1 tablet by mouth daily. Active aspirin (Ecotrin) 325 MG EC tablet Take 1 tablet by mouth daily. Active ergocalciferol 1.25 MG (08539 UT) capsule TAKE ONE CAPSULE BY MOUTH ONCE WEEKLY DIRECTED Active Active Problems Problem Noted Date Diagnosed Date Age-related osteoporosis with current pathologic al fracture 01/23/2025 Resolved Problems Problem Noted Date Diagnosed Date Resolved Date Fall 11/18/2024 11/19/2024 Intertrochanteric fracture o f right femur, closed, initial encounter 11/16/2024 11/19/2024 Closed intertrochanteric fra cture of hip, right, initial encounter 11/16/2024 11/19/2024 Encounters Date Type Department Care Team Description 03/05/2025 10:50 AM EDT Office Visit [facility]opa[facility] Surgery [facility] Medicine [address] [place] [address] Miguelito Rodriguez MD Closed intertrochanteric fracture of hip, right, initial encounter (Primary Dx) 03/05/2025 10:10 AM EDT - 03/05/2025 11:59 PM EDT Hospital Encounter [facility] Radiology [address], [address] [place] [address] Closed intertrochanteric fracture of hip, right, initial encounter Discharge Disposition: Home or Self Care 03/05/2025 Travel 02/12/2025 Telephone [facility] [address] [place] [address] Allie Calles, PharmD 01/23/2025 11:20 AM EDT Office Visit [facility] [address], [address] [place] [address] Merly Triplett PA Age-related osteoporosis with current pathological fracture, initial encounter (Primary Dx); Vitamin D deficiency 01/23/2025 Travel from Last 3 Months Immunizations Immunization [...] 03/05/2025 11:27 AM EDT Plan of Treatment Health Maintenance Due Date Last Done Comments [facility]-Bone Density Scan 1950 [facility]-Medicare Annual Wellness (AWV) 1950 [facility]-Infant/Child/Adol SDOH Screenings 1950 [facility]- SDOH Screenings 1970 [facility]-Adult SDOH Screenings 1970 CT Colonography 1997 Colonoscopy 1997 FIT-DNA 1997 FIT 1997 FOBT 1997 Sigmoidoscopy 1997 [facility]-Colorectal Cancer Screening 1997 [facility]-Zoster Vaccines (1 of 2) 2002 [facility]-Pneumococcal Vaccine: 50+ Years (2 of 2 - PPSV23, PCV20, or PCV21) 07/18/2018 05/23/2018 [id number] Vaccine ( - season) 2025 05/20/2021, 09/08/2020, 08/07/2020 [facility]-Influenza Vaccine (#1) 04/01/202508/27, [...] this topic Medical Devices Implanted Type Area Customer Contact Sales Associate Device Identifier Shelf Expiration Date Model / Serial / Lot Nail Interm Rt [id number] 130deg Gamma4 - S. - [id number] Implanted:Qty: 1 on 11/17/2024 by Miguelito Rodriguez MD at [facility] Nail Right: Femur [employer] ([facility])-[id number] 12/29/2033 [id number] / . / [id number] Screw Lag D10.5x95mm - S. - [id number] Implanted:Qty: 1 on 11/17/2024 by Miguelito Rodriguez MD at [facility] Screw Right: Femur [employer] [facility])-[id number] 07/31/2034 [id number] / . / [id number] Screw Locking T2 D5x35 - [id number] Implanted:Qty: 1 on 11/17/2024 by Miguelito Rodriguez MD at [facility] Right: Femur [employer] ([facility])-[id number] 07/31/2034 [id number] / / Procedures Procedure [...] Antibody Negative Negative 11/17/2024 12:[address] [facility] Blood Venous blood specimen / Unknown Venipuncture / Unknown 11/16/2024 11:33 PM EDT 11/16/2024 11:46 PM EDT us Alfredo Frank MD LAB BLOOD ORDERABLES Final Re sult [facility] [address] [place] [address] from Last 3 Months or Most Recently Relevant to Health Maintenance Insurance [facility] [employer] [address] [facility] [address] MEDICARE Advance Directives * Full Code (Latest [...] updated to appropriate status: Yes Care Teams Stock House Worker Relationship Specialty Start Date End Date Helio Garvey MD [address] [facility] [address] [place] [address] PCP - General 12/12/24
--- OUTSIDE RECORDS SUMMARY | 2025-04-19 10:06 | XMS_ITS | Encounter Summary ---
Author Organization [employer] ([place], [place], [place], [place]) Address [address] [place] [address] Care Team Providers Care Manufacturing Mechanic Name Role Phone David Hidalgo MD Primary Care Provider [phone] Reason for Referral * Mammography (Routine) - New Request Specialty Diagnoses / Procedures Referred By Coy ray Referred To Contact Diagnoses Visit for screening mammogram Procedures MM digital mammo screen with alexandria bilateral Helio Garvey MD [address] [employer] [address] [place] [address] Phone: tel: fax: Referral ID Status Reason Start Date Expiration Date V isits Requested Visits Authorized [id number] New Request 04/18/2025 04/18/2026 1 1 Encounter Details Date Type Department Care Team (Late st Contact Info) Description 04/16/2024 Outside Orders [facility] Central Scheduling [address] [place] [address] Helio Garvey MD [address] [place], [place] [address] Visit for screening mammogram (Primary Dx) Social History Tobacco Use Types Packs/Day Years Used Date Smoking Tobacco: Never Assessed C - Mental Health Answer Date Recorde d [...] Date Yassine rded Speak language other than Cymraes at home Not on file 08/19/2023 Want [...] in doing things Not at all 05/14/2024 11:36 AM CDT Gloria Elizondo R N Feeling down, depressed, or hopeless Not at all 05/14/2024 11:36 AM CDT Gloria Elizondo R N Patient Health Questionnaire -2 Score 0 05/14/2024 11:36 AM CDT Gloria Elizondo R N documented as of this encounter Plan of Treatment Upcoming Encounters Date Type Department Care Team (Late st Contact Info) Description 06/05/2025 3:00 PM EST Appointment [address] [address] Helio Garvey MD [facility] [address] [place] [address] Scheduled Orders Name Type Priority Associated Diagnoses Orde r Schedule MM digital mammo screen with alexandria bilateral Imaging Routine Visit for screening mammogram Expected: 04/18/2025, Expires: 10/14/2025 documented as of this encounter Visit Diagnoses Diagnosis Visit for screening mammogram- Primary documented in this encounter Care Teams Manufacturing Mechanic Relationship Specialty Start Date End Date David Hidalgo MD [facility] [facility] [address] [place] [address] PCP - General 01/17/23 documented as of this encounter
--- OUTSIDE RECORDS SUMMARY | 2025-04-19 10:06 | XMS_ITS | Clinical Summary ---
Author Organization [facility] Address [address] [place] [address] Care Team Providers Care Dining Room Hostess Name Role Phone David Hidalgo MD Primary Care Provider [phone] Allergies No known active allergies Medications timolol [...] Date Diagnosed Date Urge incontinence 10/07/2022 Annual DATA ENTRY MACHINE OPERATOR exam in 02/16/2016 Overview (10/21/2022): SCREENING TESTS [...] Additional history exists DXA SCAN 03/07/2024 03/07/2018 INFLUENZA VACCINE 03/01/2025 05/15/2022, , 04/22/2017 COVID-19 Vaccine ( - 2024-2 6 season) 2025 05/20/2021, 09/08/2020, 08/07/2020 HEPATITIS C SCREENING Completed 11/16/2024 Procedures Procedure [...] Recently Relevant to Health Maintenance [place] [address] MEDICARE A & B Care Teams Dining Room Hostess Relationship Specialty Start Date End Date David Hidalgo MD [address] [place] [address] PCP - General Family Medicine 04/22/22
[2025-04-19 10:12] VITALS: BP 116/61; PULSE 67; RESP 18; TEMP 36.8; O2SAT 99
[2025-04-19] MEDS: ROMOSOZUMAB AQQG 210 MG/2.34 ML SUBCUT (10:14)
== END 2025-04-19 10:33 | disposition home or self-care (01) ==
LOC: INF 10:04
PROVIDERS: PCP Family Medicine; Visit Provider Physician Assistant
DX: M80.00XA Age-related osteoporosis with current pathological fracture, unspecified site, initial encounter for fracture (principal)
CPT/HCPCS: 96372; J3111

== ENCOUNTER 2025-05-22 13:46 | Outpatient (CLI) | payer MEDICARE, OTHER, SELFPAY ==
--- OUTSIDE RECORDS SUMMARY | 2017-08-04 11:30 | XMS_ITS | Encounter Summary ---
[facility] Address [address] [place] [id number] Care Team Providers Care Radiology Manager Name Role Phone Juan Luis Celis MD Primary Care Provider Unavail able Reason for Referral * Diagnostic Imaging (Routine) - Closed Specialty Diagnoses / Procedures Referred By Contac t Referred To Contact Radiology Diagnoses Postmenopausal bleeding Procedures US Non-ob Transvaginal Jazlyn King MD [address] [place] [address] Phone: tel: fax: [address] [address] Phone: tel: fax: Referral ID Status Reason Start Date Expiration Date Visits Re quested Visits Authorized [id number] Closed 07/19/2017 07/19/2018 1 1 Reason for Visit * Diagnostic Imaging (Routine) - Closed Specialty Diagnoses / Procedures Referred By Contac t Referred To Contact Radiology Diagnoses Postmenopausal bleeding Procedures [place] [address] [place] [address] Phone: tel: fax: [address] [address] Phone: tel: fax:[phone] Referral ID Status Reason Start Date Expiration Date Visits Re quested Visits Authorized [id number] Closed 07/19/2017 07/19/2018 1 1 Encounter Details Date Type Department Care Team (Latest Contact Info) Description 08/04/2017 10:30 AM EST Hospital Encounter [facility] [address] [place] [address] Postmenopausal bleeding Social History Tobacco Use Types Packs/Day Years Used Date Smoking Tobacco: Former Cigarettes 0.1 10 972 1981 Alcohol Use Standard Drinks/Week Comments Yes [...] PM EST PAT NAME: ANNA MARIE ZAMORANO [facility] REC#: [id number] DA: [id number] PAT GEND: F PAT TYPE: O EXAM INGRID: [id number] REF PHYS JAZLYN KING Indication ======== Post Menopausal Bleeding. 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 Recommendation Follow-up as clinically indicated. Channel Worker: Renee Lee RDMS Physician: Sameer Mar MD Electronically signed by: Sameer Mar MD at: 18:26 Procedure Note Sameer Mar MD - 08/04/2017 PAT NAME: ANNA MARIE ZAMORANO MED REC#: [id number] DA: [id number] PAT GEND: F PAT TYPE: O EXAM INGRID: [id number] REF PHYS JAZLYN KING Indication ======== Post Menopausal Bleeding. 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 Recommendation Follow-up as clinically indicated. Channel Worker: Renee Lee RDMS Physician: Sameer Mar MD Electronically signed by: Sameer Mar MD at: 18:26 us Jazlyn King MD [facility] [place] US ORDERABLES Final Re sult documented in this encounter Visit Diagnoses Diagnosis Postmenopausal bleeding documented in this encounter Care Teams Radiology Manager Relationship Specialty Start Date End Date Juan Luis Celis MD PCP - General Family Medicine 01/29/16 03/30/21 documented as of this encounter
--- OUTSIDE RECORDS SUMMARY | 2019-11-14 13:16 | XMS_ITS | Encounter Summary ---
[facility] Address [address] [place] [address] Care Team Providers Care Hydrologist Name Role Phone Juan Luis Celis MD Primary Care Provider Unavail able Reason for Referral * Diagnostic Imaging (Routine) - Closed Specialty Diagnoses / Procedures Referred By Contac t Referred To Contact Radiology Diagnoses Abnormal ultrasound Procedures US Non-ob Transvaginal Jazlyn King MD [address] [place] [address] Phone: tel: fax: [address] [phone] Phone: tel: fax: Referral ID Status Reason Start Date Expiration Date Visits Re quested Visits Authorized [id number] Closed 11/14/2019 11/13/2020 1 1 Reason for Visit * Diagnostic Imaging (Routine) - Closed Specialty Diagnoses / Procedures Referred By Contac t Referred To Contact Radiology Diagnoses Abnormal ultrasound Procedures US Non-ob Transvaginal Jazlyn King MD [address] [place] [address] Phone: tel: fax: [address] [address] Phone: tel: fax: Referral ID Status Reason Start Date Expiration Date Visits Re quested Visits Authorized [id number] Closed 11/14/2019 11/13/2020 1 1 Encounter Details Date Type Department Care Team (Latest Contact Info) Description 11/14/2019 1:16 PM EDT Hospital Encounter [facility] [address] [facility] [address] [place] [address] Abnormal ultrasound Social History Tobacco Use Types Packs/Day Years Used Date Smoking Tobacco: Former Cigarettes 0.1 10 1 1981 Alcohol Use Standard Drinks/Week Comments Yes [...] Associated Diagnosis Comments US NON-OB TRANSVAGINAL Routine 11/14/2019 1:36 PM EDT Abnormal ultrasound documented in this encounter Results * US Non-ob Transvaginal (11/14/2019 1:36 PM EDT) Anatomical Region Laterality Modality Body Ultrasound 11/14/2019 1:29 PM EDT Narrative 11/14/2019 1:43 PM EDT PAT NAME: ANNA MARIE ZAMORANO [facility] REC#: [id number] DA: 1950 PAT GEND: F PAT TYPE: O EXAM INGRID: [id number] REF PHYS JAZLYN KING Indication ======== Post Menopausal Bleeding History ====== Medical History Other: Several D&C's, 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 View: Adequate view Uterus ====== Uterus: Normal Uterus position: Anteverted Myometrium: Homogeneous Endometrium: Uniform Cervix details: Normal Uterus long 38 mm Uterus ap 32 mm Uterus tr 48 mm Uterus Vol 30.2 cm Endometrial thickness, total 1.6 mm Cervical length 16.1 mm Right Ovary ========= Rt ovary: Normal Rt ovary D1 27.4 mm Rt ovary D2 16.9 mm Rt ovary D3 17.1 mm Left Ovary ======== Lt ovary: Normal Lt ovary D1 17.2 mm Lt ovary D2 12.2 mm Lt ovary D3 16.40 mm Cul de Sac ========= Normal Impression ========= Normal pelvic ultrasound. Thin, uniform endometrial stripe. Significant endometrial pathology is unlikely Recommendation Follow-up as clinically indicated. 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 View: Adequate view Uterus ====== Uterus:Normal Uterus position:Anteverted Myometrium:Homogeneous Endometrium:Uniform Cervix details:Normal Uterus long38 mm Uterus ap32 mm Uterus tr48 mm Uterus Vol30.2 cm Endometrial thickness, total1.6 mm Cervical .1 mm Right Ovary ========= Rt ovary:Normal Rt ovary D127.4 mm Rt ovary D216.9 mm Rt ovary D317.1 mm Left Ovary ======== Lt ovary:Normal Lt ovary D117.2 mm Lt ovary D212.2 mm Lt ovary D316.40 mm Cul de Sac ========= Normal Impression ========= Normal pelvic ultrasound. Thin, uniform endometrial stripe. Significant endometrial pathology isunlikely Recommendation Follow-up as clinically indicated. Line Supply: Renee Lee RDMS Physician: Jazlyn King MD Electronically signed by: Jazlyn King MD at: 13:43 us Jazlyn King MD [facility] US ORDERABLES Final Re sult documented in this encounter Visit Diagnoses Diagnosis Abnormal ultrasound documented in this encounter Care Teams Hydrologist Relationship Specialty Start Date End Date Juan Luis Celis MD PCP - General Family Medicine 01/29/16 03/30/21 documented as of this encounter
[2025-05-22] MEDS: ROMOSOZUMAB AQQG 210 MG/2.34 ML SUBCUT (13:54)
[2025-05-22 14:00] VITALS: BP 142/75; PULSE 73; RESP 18; O2SAT 98
--- OUTSIDE RECORDS SUMMARY | 2025-05-22 14:28 | XMS_ITS | Clinical Summary ---
Author Organization [employer] ([place], [place], [place], [place]) Address [address] [place] [address] Care Team Providers Care Perinatal Social Worker Name Role Phone David Hidalgo MD Primary [...] drink = 0.6 oz pur e alcohol) CHI Intimate Partner Violence Answer Da te [...] Date Yassine rded Speak language other than Finnish at home Not on file 08/19/2023 Want [...] Info) Description 06/05/2025 3:00 PM EST Appointment [address] [place] [address] [place] [address] [place] [address] [place] [address] Health Maintenance Due Date Last Done Comments CT Colonography 1952 Colonoscopy 1952 Colorectal Cancer Screening 1952 DXA SCAN 1952 FOBT/FIT 1952 Fit-DNA (Cologuard) 1952 Sigmoidoscopy 1952 Depression Screening (12+) 1964 Tobacco Cessation Counseling and Screening (12+) 1964 Hepatitis C Screening 1970 DTAP/TDAP/TD VACCINES (1 - Tdap) 1971 Shingles Vaccine (Zoster) (1 of 2) 2002 Medicare Initial AWV [id number] 07/02/2018 Pneumococcal 50+ years (2 of 2 - PCV20 or PCV21) 05/23/2019 05/23/2018 Falls Risk Screening 08/01/2024 COVID-19 VACCINE (4 - 2024-2 6 season) 2025 05/20/2021, 09/08/2020, 08/07/2020 Influenza Vaccine (#1) 2025 Breast Cancer Screening 04/16/2026 04/16/20 24, 03/01/2023, 01/27/2022, Additional history exists Respiratory Syncytial Virus (RSV) Adult or (1 - 1-dose 75+ series) 2027 Medical Devices Implanted Type Area Business Services Specialist Sales Device Identifier Shelf Expiration Date Model / Serial / Lot Cement Bone Smplx Hv 6194-1-001 - [id number] Implanted:Qt y: 2 on 05/21/2024 by Wilbert Leo MD at [facility] IMPLANTS Right: Knee ANDREI:[employer] [id number] 08/31/2025 6194-1-00 1 [id number] Psn Art Surf 10 Ve8-11ef Rt 08-0168-841- 10 - [id number] Implanted:Qt y: 1 on 05/21/2024 by Wilbert Leo MD at [facility] TOTAL JOINT CONSTRUCT Right: Knee SHAY:SHAY [id number] 01/01/2029 42-5221-0 08-10 [id number] Psn Rev Tib Fx Keel Cmt Sz E R 63-8065-116- 02 - [id number] Implanted:Qt y: 1 on 05/21/2024 by Wilbert Leo MD at [facility] TOTAL JOINT CONSTRUCT Right: Knee SHAY:SHAY [id number] 04/02/2034 42-5360-0 71-02 [id number] Psn Fem Cr Cmt Ccr Nrw Sz 8 R 07-1416-959- 02 - [id number] Implanted:Qt y: 1 on 05/21/2024 by Wilbert Leo MD at [facility] TOTAL JOINT CONSTRUCT Right: Knee SHAY:SHAY [place] [id number] 12/18/2033 42-5020-0 64-02 / [id number] Procedures Procedure Name Priority Date/Time Associated Diagnosis [...] the next mammogram. At our facility, a karuk marker is positioned over a visible skin [...] cancer. COMPARISON STUDY: 2022 through 2015 from [facility] FINDINGS: Craniocaudal and mediolateral oblique images [...] Most Recently Relevant to Health Maintenance Insurance MEDICARE PART A B Advance Directives For more information, please contact: [phone] * Full Code (Latest Code Status on File) Date Activated Date Inactivated Comments 05/21/2024 8:46 AM 05/22/2024 12:28 PM * Full Code Date Activated Date Inactivated Comments 05/21/2024 5:19 AM 05/21/2024 8:46 AM Care Teams Perinatal Social Worker Relationship Specialty Start Date End Date David Hidalgo MD [address] [address] PCP - General 01/17/23
--- OUTSIDE RECORDS SUMMARY | 2025-05-22 14:28 | XMS_ITS | Referral Summary ---
Author Organization [employer] ([place], [place], [place], [place]) Address [address] [place] [address] Care Team Providers Care Sexual Assault Response Coordinator Name Role Phone David Hidalgo MD Primary Care Provider [phone] Allergies No known active allergies Medications sertraline [...] Date Yassine rded Speak language other than Burmese at home Not on file 08/19/2023 Want [...] Info) Description 06/05/2025 3:00 PM EST Appointment [address] [place] [address] Helio Garvey MD [address] [facility] [address] [place] [address] Medical Devices Implanted Type Area Certified Tumor Registrar Device Identifier Shelf Expiration Date Model / Serial / Lot Cement Bone Smplx 6194-1-001 - [id number] Implanted:Qt y: 2 on 05/21/2024 by Wilbert Leo MD at [facility] IMPLANTS Right: Knee ANDREI:[employer] [id number] 08/31/2025 6194-1-00 [id number] Psn Art Surf 10 Ve8-11ef Rt 84-6257-296- 10 - [id number] Implanted:Qt y: 1 on 05/21/2024 by Wilbert Leo MD at [facility] TOTAL JOINT CONSTRUCT Right: Knee SHAY:SHAY [id number] 01/01/2029 42-5221-0 03-10 [id number] Psn Rev Tib Fx Keel Cmt Sz E R 53-3226-873- 02 - [id number] Implanted:Qt y: 1 on 05/21/2024 by Wilbert Leo MD at [facility] TOTAL JOINT CONSTRUCT Right: Knee SHAY:SHAY [place] [id number] 04/02/2034 42-5360-0 71- [id number] Psn Fem Cr Cmt Ccr Nrw Sz 8 R 09-7764-980- 02 - [id number] Implanted:Qt y: 1 on 05/21/2024 by Wilbert Leo MD at [facility] TOTAL JOINT CONSTRUCT Right: Knee SHAY:SHAY [id number] 12/18/2033 42-5020-0 64- [id number] Procedures Procedure Name Priority Date/Time Associated Diagnosis [...] the next mammogram. At our facility, a ely shoshone marker is positioned over a visible skin [...] cancer. COMPARISON STUDY: 2022 through 2015 from [facility] FINDINGS: Craniocaudal and mediolateral oblique images of both breasts were obtained in 2D and DBT modes. Synthesized views were reconstructed from DBT data. The breast tissue is almost entirely fatty. There is no evidence of dominant mass, architectural distortion, or suspicious calcifications. The mammogram was interpreted with the benefit of computer aided detection (CAD). us David Hidalgo MD IMG MAMMOGRAPHY ORDERABLES Final Result from Last 3 Months or Most Recently Relevant to [place] [address] MEDICARE PART A B Advance Directives For more information, please contact: [phone] * Full Code (Latest Code Status on File) Date Activated Date Inactivated Comments 05/21/2024 8:46 AM 05/22/2024 12:28 PM * Full Code Date Activated Date Inactivated Comments 05/21/2024 5:19 AM 05/21/2024 8:46 AM Care Teams Sexual Assault Response Coordinator Relationship Specialty Start Date End Date David Hidalgo MD [address] [place] [address] PCP - General 01/17/23
--- OUTSIDE RECORDS SUMMARY | 2025-05-22 14:29 | XMS_ITS | Encounter Summary ---
Author Organization [employer] ([place], [place], [place], [place]) Address [address] [place] [address] Care Team Providers Care Detail Technician Name Role Phone David Hidalgo MD Primary Care Provider [phone] Reason for Referral * Mammography (Routine) - New Request Specialty Diagnoses / Procedures Referred By Coy ray Referred To Contact Diagnoses Visit for screening mammogram Procedures MM digital mammo screen with alexandria bilateral Helio Garvey MD [address] [facility] [address] [place] [address] Phone: tel: fax: Referral ID Status Reason Start Date Expiration Date V isits Requested Visits Authorized [id number] New Request 04/18/2025 04/18/2026 1 1 Encounter Details Date Type Department Care Team (Late st Contact Info) Description 04/16/2024 Outside Orders [facility] Central Scheduling [address] [place] [address] Helio Garvey MD [address] [place] [address] Visit for screening mammogram (Primary Dx) Social History Tobacco Use Types Packs/Day Years Used Date Smoking Tobacco: Never Assessed CHI Intimate Partner Violence Answer Da te [...] Date Yassine rded Speak language other than Surinamese at home Not on file 08/19/2023 Want [...] Info) Description 06/05/2025 3:00 PM EST Appointment [address] [place] [address] Helio Garvey MD [address] [facility] [address] [place] [address] Scheduled Orders Name Type Priority Associated Diagnoses Orde r Schedule MM digital mammo screen with alexandria bilateral Imaging Routine Visit for screening mammogram Expected: 04/18/2025, Expires: 10/14/2025 documented as of this encounter Visit Diagnoses Diagnosis Visit for screening mammogram- Primary documented in this encounter Care Teams Detail Technician Relationship Specialty Start Date End Date David Hidalgo MD [address] [place] [address] PCP - General 01/17/23 documented as of this encounter
--- OUTSIDE RECORDS SUMMARY | 2025-05-22 14:29 | XMS_ITS | Patient Health Record ---
Author [facility] Address [address] [place] [id number] Care Team Providers Care General Expeditor Name Role Phone Sera Zamorano Primary Care Provider RossIliana goyaline Unavailable [phone] Allergies No Known Allergies Medications Medication SIG (Take, Route, Frequency, Duration) Notes Start Date End Date Status Bactrim DS 800-160 MG 1 tablet Orally Two times a day; Duration: 5 day(s) 01/30/2024 Active Meloxicam 15 MG 1 tablet Orally Once a day 07/04/2024 Active Metoprolol Succinate ER 50 MG TAKE 1 TABLET BY MOUTH DAILY; Duration: 90 Active Senna 8.6 MG 2 tablets at bedtime as needed Orally Once a day; Duration: 30 days 12/31/2024 Active Ergocalciferol 1.25 MG (36740 UT) 1 capsule Orally; Duration: 30 days 12/31/2024 Active Zoloft 150 MG 1.5 TAB(S) Orally ONCE A DAY *Please review and pick correct strength-formulat ion from [employer] options. If intended option is not shown, discontinue and re-order from Quick Search* 07/06/2021 Active Medrol 4 MG as directed orally daily; Duration: 6 days 03/26/2024 Active Gemtesa 75 MG 1 tablet Orally Once a day; Duration: 30 days 01/16/2025 Active Wellbutrin XL 150 MG 1 tab(s) orally every 24 hours; Duration: 30 day(s) Active Omeprazole 40 MG 1 cap(s) orally once a day; Duration: 90 days Active Crestor 10 MG 1 tab(s) orally once a day (at bedtime) Active Lidocaine HCl 4 % as directed Externally once daily; Duration: 30 day(s) 05/24/2024 Active Synthroid 150 MCG take 1 tablet by mouth once daily; Duration: 30 12/06/2009 Active metroNIDAZOLE 0.75 % 1 application Externally Twice a day 10/29/2023 Active Nystatin-Triamcinolo ne 291741-8.1 UNIT/GM 1 manjit applied topically id 01/12/2016 Not-Taking hydrOXYzine HCl 25 MG 1 tab(s) orally At Bed Time Active ALPRAZolam 0.25 MG 1 tab(s) orally three times a day as needed Active Timolol Maleate 0.5 % INSTILL 1 DROP INTO BOTH EYES ONCE DAILY; Duration: 45 Active buPROPion HCl ER (XL) 150 MG 1 tab(s) orally Once a day; Duration: 90 days Active buPROPion HCl ER (XL) 300 MG TAKE 1 TABLET BY MOUTH EVERY 24 HOURS; Duration: 90 Active Minocycline HCl 100 MG 1 capsule Orally Twice a day 10/29/2023 Active Immunizations Vaccine Route Administration Date Status Comme nts COVID 19 Moderna Unknown 08/22/2020 Administered Fluzone High Dose (65yr and older) IM Intramuscular 06/05/2019 Administered Fluzone High Dose (65yr and older) Unknown 05/12/2022 Administered Fluzone Intradermal Quad private(18-64yrs) ID Intradermal 07/01/2016 Administered Fluzone PF Quad (6-35 months) Unknown 04/22/2017 Administered Fluzone PF Quad (6-35 months) Unknown 05/23/2018 Administered PNEUMOVAX 23 VACCINE IM Intramuscular 07/01/2016 Administe red Prevnar (PCV13) Unknown 05/23/2018 Administered Tetanus Tdap-Adacel (over 7yrs) IM Intramuscular 05/12/2011 Administered xAdministration of injection SC Subcutaneous 10/29/2009 Administered xFlu shot- 6months-36 months of pjj-PHZS-HSCJ-trivalent IM Intramuscular 06/24/2010 Administered xFlu shot-36 months and older IM Intramuscular 06/09/2006 Administered xFlu shot-36 months and older IM Intramuscular 06/16/2007 Administered xFluzone (6mos and older)-trivalent IM Intramuscular 08/02/2013 Administered xFluzone (6mos and older)-trivalent IM Intramuscular 06/05/2014 Administered xFluzone High Dose-private (65yr&older) Unknown 04/04/2020 Administered Problems Problem Type SNOMED Code ICD Code Onset Dates Problem Status W/U Status Risk Notes Problem Vitamin D deficiency (76213762) Vitamin D deficiency (E55.9) Active confirmed Problem Hyperlipidaemia (86375277) Hyperlipemia (E78.5) Active confirmed Problem Rosacea (335171625) Rosacea (L71.9) Active conf irmed Problem Anemia (143755139) Anemia, unspecified (D64.9) Active confirmed Problem Mixed hyperlipidemia (737141279) Mixed hyperlipidemia (E78.2) Active confirmed Problem Gastroesophageal reflux disease (919393950) GERD without esophagitis (K21.9) Active confirmed Problem Sciatica (47725389) Sciatica of right side (M54.31) Active confirmed Problem Acquired hypothyroidism (249144158) Acquired hypothyroidism (E03.9) Active confirmed Problem Panic disorder without agoraphobia (33283213) Panic disorder without agoraphobia (F41.0) Active confirmed Problem Dysthymia (76131349) Dysthymia (F34.1) Active confirmed Problem Artificial knee joint present (621151442071) Status post right knee replacement (Z96.651) Active confirmed Problem Mixed incontinence (000365529) Mixed stress and urge urinary incontinence (N39.46) Active confirmed Problem Glaucoma (93053676) Glaucoma of both eyes, unspecified glaucoma type (H40.9) Active confirmed Problem Pain in limb (40183679) Pain of foot, unspecified laterality (M79.673) Active confirmed Problem Acute insomnia (485381448) Acute insomnia (G47.00) Active confirmed Problem Chronic primary angle-closure glaucoma of both eyes, unspecified glaucoma stage (H40.2230) Active confirmed Encounters Encounter Location Date Provider Diagnosis [facility] [address] [place], [place] [id number] 05/24/2024 Sera Zamorano Sciatica of right si de M54.31 [facility] [address] [place], [place] [id number] 07/04/2024 Sera Zamorano Status post right kn ee replacement Z96.651 [facility] [address] [place], [place] [id number] 12/31/2024 Sera Zamorano Vitamin D deficiency E55.9 and Intermittent constipation K59.09 [facility] [address] [facility] [address] [facility] [address] [place] [id number] 01/01/2025 Sera Zamorano [facility] [address] [facility] [address] [facility] [address] [place] [id number] 01/01/2025 Sera Zamorano Mild depression F32. A [facility] [address] [facility] [address] [place] [id number] 01/16/2025 Sera Zamorano Mixed stress and urg e urinary incontinence N39.46 [facility] [address] [facility] [address] [place] [id number] 01/16/2025 Sera Zamorano Assessments Encounter Date Diagnosis (ICD Code) Assessment Notes Treatment Notes Treatment Clinical Notes Section Notes 05/24/2024 Sciatica of right side (ICD-10 - M54.31) 07/04/2024 Status post right knee replacement (ICD-10 - Z96.651) 12/31/2024 Vitamin D deficiency (ICD-10 - E55.9) 12/31/2024 Intermittent constipation (ICD-10 - K59.09) 01/01/2025 Mild depression (ICD-10 - F32.A) 01/16/2025 Mixed stress and urge urinary incontinence (ICD-10 - N39.46) Plan Of Treatment Pending Test Test Name Order Date Cologuard 02/18/2023 Insurance Providers Payer Name Payer Address Payer Phone Subscriber Number Group Number Insured Name Patient Relationship to Insured Coverage Start Date Coverage End Date MEDICARE PART B [address] [address] [place] [address] [id number] SUYAPA ZAMORANO Self - patient is the insured [employer] [address] [address] [id number] SUYAPA ZAMORANO Self - patient is the insured Medications Administered Medication Instructions Date of Administration Dosage Notes Bicillin LA 1,200,000 03/30/2012 Dexamethasone 06/01/2016 1 mL Medical (General) History Medical History History ICD Code hypothroidism HLP Surgical History Surgery Date(Month/Year) BTL D&C toe surgery 09/15/07
--- OUTSIDE RECORDS SUMMARY | 2025-05-22 14:29 | XMS_ITS | Encounter Summary ---
Author Organization Healthcare Address [address] [place] [place] [address] Care Team Providers Care Flat Optical Element Maker Name Role Phone Helio Garvey MD Primary Care Provider [phone] Encounter Details Date Type Department Care Team (Late Contact Info) Description 04/19/2025 Orders Only [facility] [address], [address] [place] [address] Merly Triplett PA [address] [place] [address] [place] [address] Age-related osteoporosis with current pathological fracture, initial encounter (Primary Dx) Social History Tobacco [...] Encounters Date Type Department Care Team (Late Contact Info) Description 06/18/2025 12:20 PM EST Office Visit [facility] [address], [address] [place] [address] Merly Triplett PA [address] [facility] [address] [place] [address] Scheduled Orders Name Type Priority Associated Diagnoses Orde r Schedule Renal Function Panel, Plasma Lab Routine Age-related osteoporosis with current pathological fracture, initial encounter Expected: 04/19/2025 (Approximate), Expires: 10/21/2026 Bone Specific Alkaline Phosphatase Lab Routine Age-related osteoporosis with current pathological fracture, initial encounter Expected: 04/19/2025 (Approximate), Expires: 10/17/2026 C-Telopeptide Lab Routine Age-related osteoporosis with current pathological fracture, initial encounter Expected: 04/19/2025 (Approximate), Expires: 10/17/2026 Vitamin D 25 Hydroxy Lab Routine Age-related osteoporosis with current pathological fracture, initial encounter Expected: 04/19/2025 (Approximate), Expires: 10/17/2026 documented as of this encounter Visit Diagnoses Diagnosis Age-related osteoporosis with current pathological fracture, initial encounter- Primary documented in this encounter Additional Health Concerns Assessment Noted Time A fall risk assessment has been complete d for the patient 03/05/2025 11:25 AM EDT A Body Mass Index follow-up plan has been documented for the patient 03/05/2025 1:17 PM EDT documented as of this encounter Care Teams Flat Optical Element Maker Relationship Specialty Start Date End Date Helio Garvey MD [address] [facility] [address] [place] [address] PCP - General 12/12/24 documented as of this encounter
--- OUTSIDE RECORDS SUMMARY | 2025-05-22 14:29 | XMS_ITS | Clinical Summary ---
Author Organization Healthcare Address [address] [place] [address] Care Team Providers Care Regional Geodetic Advisor Name Role Phone Helio Garvey MD Primary Care Provider [phone] Allergies No known active allergies Medications Coenzyme [...] by mouth daily. Active ergocalciferol 1.25 MG (15088 UT) capsule TAKE ONE CAPSULE BY MOUTH [...] Encounters Date Type Department Care Team Description 04/19/2025 Orders Only [facility] [address] [facility], [address] [place] [address] Merly Triplett PA Age-related osteoporosis with current pathological fracture, initial encounter (Primary Dx) 03/05/2025 10:50 AM EDT Office Visit [facility] [address], [address] [place] [phone] Miguelito Rodriguez MD Closed intertrochanteric fracture of hip, right, initial encounter (Primary Dx) 03/05/2025 10:10 AM EDT - 03/05/2025 11:59 PM EDT Hospital Encounter [facility] [address], [address] [place] [address] Closed intertrochanteric fracture of hip, right, initial encounter Discharge Disposition: Home or Self Care 03/05/2025 Travel from Last 3 Months Immunizations Immunization [...] Care Team (Late st Contact Info) Description 06/18/2025 12:20 PM EST Office Visit [facility] [address] [facility], [address] [place] [address] Merly Triplett PA [address] [facility] [address] [place] [address] Health Maintenance Due Date Last Done Comments [facility]-Bone Density Scan 1950 [facility]-Medicare Annual Wellness (AWV) 1950 [facility]-/Child/Adol SDOH Screenings 1952 [facility]- SDOH Screenings 1970 [facility]-Adult SDOH Screenings 1970 CT Colonography 1997 Colonoscopy 1997 FIT-DNA 1997 FIT 1997 FOBT 1997 Sigmoidoscopy 1997 [facility]-Colorectal Cancer Screening 1997 [facility]-Zoster Vaccines (1 of 2) 2002 [facility]-Pneumococcal Vaccine: 50+ Years (2 of 2 - PPSV23, PCV20, or PCV21) 07/18/2018 05/23/2018 [id number] Vaccine ( - season) 2025 05/20/2021, 09/08/2020, [...] this topic Medical Devices Implanted Type Area Mold Capper Helper Device Identifier Shelf Expiration Date Model / Serial / Lot Nail Interm Rt [id number] 130deg Gamma4 - S. - [id number] Implanted:Qty: 1 on 11/17/2024 by Miguelito Rodriguez MD at [facility] Nail Right: Femur [employer] ([facility])-[id number] 12/29/2033 [id number] / . / [id number] Screw Lag D10.5x95mm - S. - [id number] Implanted:Qty: 1 on 11/17/2024 by Miguelito Rodriguez MD at [facility] Screw Right: Femur [employer] ([facility])-[id number] 07/31/2034 [id number] / . / [id number] Screw Locking T2 D5x35 - [id number] Implanted:Qty: 1 on 11/17/2024 by Miguelito Rodriguez MD at [facility] Right: Femur [employer] ([facility])-[id number] 07/31/2034 [id number] / / Procedures Procedure [...] Antibody Negative Negative 11/17/2024 12:25 AM EDT [facility] Blood Venous blood specimen / Unknown Venipuncture / Unknown 11/16/2024 11:33 PM EDT 11/16/2024 11:46 PM EDT us Alfredo Frank MD LAB BLOOD ORDERABLES Final Re sult [facility] [address] [place] [address] from Last 3 Months or Most Recently Relevant to Health Maintenance [place] [address] [employer] [place] MEDICARE Advance Directives * Full Code (Latest [...] updated to appropriate status: Yes Care Teams Regional Geodetic Advisor Relationship Specialty Start Date End Date Helio Garvey MD [address] [place] [address] [address] [place] [address] PCP - General 12/12/24
--- OUTSIDE RECORDS SUMMARY | 2025-05-22 14:29 | XMS_ITS | Clinical Summary ---
Author Organization [facility] Address [address] [place] [address] Care Team Providers Care Steel Shot Header Operator Name Role Phone David Hidalgo MD Primary Care Provider [phone] Allergies No known active allergies Medications timolol [...] Date Diagnosed Date Urge incontinence 10/07/2022 Annual PRINT MACHINE OPERATOR exam in 02/16/2016 Overview (10/21/2022): [...] Pneumococcal Vaccine 50+ (2 of 2 - PCV20 or PCV21) 05/23/2019 05/23/2018 COLONOSCOPY 08/10/2023 08/10/2018 COLORECTAL CANCER SCREENING 08/10/2023 MAMMOGRAM 01/28/2024 01/27/2022, 12/30, 09/15/2020, Additional history exists DXA SCAN 03/07/2024 03/07/2018 INFLUENZA VACCINE 03/01/2025 05/15/2022, , 04/22/2017 COVID-19 Vaccine (4 - 2024-2 6 season) 2025 05/20/2021, [...] Recently Relevant to Health Maintenance Insurance [place] [address] MEDICARE A & B Member Subscriber Plan / Payer (Ef fective 2017-Present) Name:Anna Marie Richey Member ID:[id number] Relation to Subscriber:Self Name:Anna Marie Richey Subscriber ID:[id number] Payer ID:[id number] Group ID:Not on file Type:Not on file Address: [facility] [id number] [place] [id number] Care Teams Steel Shot Header Operator Relationship Specialty Start Date End Date David Hidalgo MD [address] [place] [address] PCP - General Family Medicine 04/22/22
== END 2025-05-22 14:05 | disposition home or self-care (01) ==
LOC: INF 13:48
PROVIDERS: PCP Physician Assistant; Visit Provider Physician Assistant
DX: M80.00XA Age-related osteoporosis with current pathological fracture, unspecified site, initial encounter for fracture (principal)
CPT/HCPCS: 96372; J3111

== ENCOUNTER 2025-06-17 15:01 | Outpatient (CLI) | payer MEDICARE, OTHER, SELFPAY ==
[2025-06-17 15:04] VITALS: BP 158/74; PULSE 73; RESP 20; O2SAT 98
[2025-06-17] MEDS: ROMOSOZUMAB AQQG 210 MG/2.34 ML SUBCUT (15:09)
--- OUTSIDE RECORDS SUMMARY | 2025-06-17 22:47 | XMS_ITS | Data Portability ---
Author Organization [facility] Address [address] [facility] [place] [address] Assessment Encounter Date Assessment Date Assessment LastModified [...] if she develops new or progressive symptoms. [email or web address] Not available 06/06/2024 14:53:27 Plan of Treatment Reminders Order Date Submit Date Provider Last Modified By Organization Details Last Modified Time Details Appointments None recorded. Lab None recorded. Referral physical therapist referral 2023 024 [facility], [address], [place], [address], 18:25:46 Procedures None recorded. Surgeries None recorded. [...] 02/22/2024 XR, knee, 4 or more view [facility] [address] [address] Alba ray Name: ROSCOE ray : 1949 [...] By: Arnel gutierrez MD on 10:36 AM [email or web address] [facility] [place] [address] , [place], [address], 02/23/2024 12:39:25 02/28/20 24 02/28/2024 XR, joint , multi ple, 1 view [facility] [address] [address] Alba ray Name: ROSCOE ray : 1949 [...] Arnel gutierrez MD on 10:38 AM [email or web address] [facility] [address], [place], [address], 03/03/2024 07:02:18 06/11/2006/11/2024 XR, knee, 3 view [facility] [address] [address] Patien t Name: ROSCOE ZAMORANO Patien t : 1949 [facility] Provid er: MITUL ANDERSON EXAM DATE: [...] ing. Interp reted By: Arnel gutierrez MD [facility] onical ly Signed By: Arnel gutierrez MD on 2023 10:09 AM [email or web address] [facility] [address], [place], [address], 06/11/2024 12:25:39 Result Notes Documentation Provider Name and Address Organization Details Recorded Time Xr, Joint, Multiple, 1 View : [place] [address] [place] [address] Patient Name: ANNA MARIE ZAMORANO Patient : [...] Interpreted By: Walter Ewing MD HERNANDEZ MD [address] [place] [address], [phone], [facility] 03/03/2024 07:02:18 Xr, Knee, 3 View : [facility] [place] [address] [place] [address] Patient Name: ANNA MARIE ZAMORANO Patient : [...] By: Walter Ewing MD L ANDERSON PA-C [address] [place] [address], [phone], [facility] 06/11/2024 12:25:39 Problems Name Problem SNOMED Code Status Onset Date Resolution Date Notes Provider Name and Address Organization Details Recorded Time Osteoarthri tis of right knee joint 7883036423960 00 Active 2023 MORE HERNANDEZ MD [address] [place] [address], [phone] [place] [address] 17:33:17 Problem Notes None recorded. Procedures Surgical History Date Name Laterality Status Provider Name and Address Organization Details Recorded Time total replacement of right knee joint completed Kacie Banda [facility] 06/26/2024 15:30:43 PCM Visit completed Edilberto Tay [facility] 05/17/2024 15:44:37 Knee arthroscopy/victor manuel tucker completed Megan Carlson [facility] 06/06/2024 14:07:08 Imaging Results None recorded. Procedure [...] Updated DateTime 02/28/2024 167.64 cm 29.5 kg/m2 38895.4 g Maria Isabel Shaggy [facility] 02/28/2024 10:34:45 Date Recorded Body height Body mass index (BMI) Body weight Pain severity - 0-10 verbal numeric rating [Score] - Reported Provider Name and Address Organization Details Last Updated DateTime 05/13/2024 167.64 cm 29.5 kg/m2 57216.4 g 7 Edilberto Tay [facility] 05/17/2024 15:41:48 Date Recorded Body height Body mass index (BMI) Body weight Systolic And Diastolic Provider Name and Address Organization Details Last Updated DateTime 06/06/2024 167.64 cm 29.5 kg/m2 88825.4 g 122/82 mm[Hg] Megan Carlson [facility] 06/06/2024 14:23:20 Date Recorded Body height Body mass index (BMI) Body weight Provider Name and Address Organization Details Last Updated DateTime 06/11/2024 167.64 cm 29.5 kg/m2 21677.4 g Maria Isabel Coon [facility] 06/11/2024 09:41:50 Social History Question Answer Notes LastModified by RingRang Details LastModified Time Tobacco Smoking Status Former Smoker Tyler Lema Adriel mccray, [facility] 02/22/2024 10:15:26 When Did You Quit Smoking? 16+yearssinc elastcigaret te Information not available 02/22/2024 What Is Your Relationship Status? Information not available 02/22/2024 At What Age Did You Start Smoking Tobacco? 20 Information not available 02/22/2024 How Many Years Have You Smoked Tobacco? 6 Information not available 02/22/2024 Sex: Female Functional Status Question Answer Note LastModified by RingRang Details LastModified Time Do you use any [...] available 2023 10:14:24 Medical History Condition Response Allergies/Hayfever N Gout N Anxiety/Depression Y Thyroid Disease Y Heart Conditions N Kidney Stones N Hernia N Migraines N Glaucoma Y COPD N Pneumonia N Skin Problems N Immune System Disorder N Anesthesia Complications N Heart Attack (ME) N Mental Illness N Neurological Problems N Diabetes N Rheumatic Fever N Bleeding Disorder N Arthritis N Seizures/Epilepsy N Blood Clot N Genetic Disorder N AIDS/HIV N Cancer N Stroke N Asthma N Blood Thinners N Alcohol Overuse/Alcohol Abuse N Sleep Apnea N High Cholesterol N Liver Disease N Included as Review of Systems N Hypertension N Osteoporosis N Kidney Disease N Gynecological HistoryNo gynecological history recorded. Obstetrics History GPAL:G 0 P 0 0 0 0 Past Encounters Encounter ID Performer Location Encounter Start Date Encounter Closed Date Diagnosis/Indication Diagnosis SNOMED-CT Code Diagnosis ICD10 Code Diagnosis IMO Codes Diagnosis Note [id number] [facility] [address] 11/01/2016 19:07:23 11/01/2016 19:07:23 [id number] JENIFER CANTU PA-C [facility] [address] [place] [address] 02/22/2024 09:53:37 02/22/2024 13:37:55 Pain of right knee joint 7971697221 20898 M25.561 Osteoarthr itis of right knee joint 0284515306 01944 M17.11 Mrs. Zamorano is a pleasant 73-year-ol [...] today. I will set her up with planner scheduler and have her see Dr. Campbell for formal surgical discussion along with risks/bene fits of a total knee arthroplas ty. 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 Has river trip in [place] from [place]04[place]03[place]16 [place] to [place]. [id number] MORE Feliz MD [facility] [address] [facility] [place] [address] 02/28/2024 10:22:27 02/28/2024 11:23:08 Osteoarthritis of right knee joint 7400190882 89489 M17.11 ASSESSMENT : DJD RIGHT knee PLAN: [...] potential cost sharing responsibi lities; only one [facility] can furnish and bill for PCM services during a calendar month, and the patient can stop these services at any time. The patient understand s and has verbally consented to accept PCM services and has been provided a copy of a written explanatio n of this service today. Surgery date: [facility]-24[facility] location: [facility] (patient preference )Special equipment: Elian MC, cemented, CPS availableP re-op clearance: PASSOther medical clearance: DVT prophylaxi s: ASA, TEDAdmissi on status: OUTPATIENT Discharge plan: overnight admissionP T: home health Allergies: noneSkin testing: No [id number] MORE Feliz MD [facility] [address] [place] [address] 05/14/2024 08:19:33 05/18/2024 08:39:30 Osteoarthritis of knee 041934425 M17.11 Mena was seen by Dr Sarkis feliz where surgical plan was discussed and finalized for right total knee arthroplas ty 05/21/24. [id number] MORE Feliz MD SURGERY SCHEDULE [address] [place] [address] 05/24/2024 10:42:36 05/28/2024 12:50:52 [id number] BRONWYN OLIVIER MD [facility]G [facility] [address] [place] [address] 06/06/2024 13:34:13 06/07/2024 04:31:42 Sacral radiculopathy 087246456 M54.18 [id number] JENIFER CANTU PA-C [facility] [address] [place] [address] 06/11/2024 09:39:58 06/11/2024 10:12:24 History of right total knee replacement [id number] 383026 Z96.651 Patient is 3 weeks post op [...] 02/15/2024 1 [employer] (MEDICARE SUPPLEMENT) Sera Zamorano [id number] Anna Marie Zamorano 08/18/2024 2 [employer] [place] (MEDICARE SUPPLEMENT) Anna Marie Zamorano [id number] Anna Marie Zamorano 08/18/2024 1 [place] Anna Marie Zamorano [id number] Anna Marie Zamorano 02/22/2024 2 [employer] (POS) Sera Zamorano [id number] Anna Marie Zamorano 05/28/2024 1 [employer] (MEDICARE SUPPLEMENT) Anna Marie Zamorano [id number] Anna Marie Zamorano Notes Date Note Type [...] by Dr. Morris and his team at [facility]. 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 02/22/24 7 year history of RIGHT knee [...] surgery on knee: none MORE HERNANDEZ MD [address] [facility] [place], [address], [place] [facility] 02/28/2024 17:34:18 4 text/htm l ROS as [...] that has remained unchanged. BRONWYN OLIVIER MD [address] [place], [address], [facility] 06/06/2024 14:54:15 4 text/htm l 06-11-24: Patient is 3 weeks s/p R TKA (05/21/24).Pain is improvingCurrently taking no doses per day of narcotic.Ambulating with no assistive devicePT: home health Denies fevers, chills, or wound drainage.They do not request a refill of pain medicine. JENIFER CANTU PA-C [address] [place], [address], [facility] 06/11/2024 12:28:25 OBGyn Episode No OBEpisode recorded.
== END 2025-06-17 23:59 | disposition home or self-care (01) ==
LOC: INF 15:03
PROVIDERS: PCP Physician Assistant; Visit Provider Physician Assistant
DX: M80.00XA Age-related osteoporosis with current pathological fracture, unspecified site, initial encounter for fracture (principal)
CPT/HCPCS: 96372; J3111

== ENCOUNTER 2025-07-15 11:21 | Outpatient (CLI) | payer MEDICARE, OTHER, SELFPAY ==
[2025-07-15] MEDS: ROMOSOZUMAB AQQG 210 MG/2.34 ML SUBCUT (11:28)
[2025-07-15 11:41] VITALS: BP 133/74; PULSE 76; RESP 20; O2SAT 98
== END 2025-07-15 23:59 | disposition home or self-care (01) ==
LOC: INF 11:22
PROVIDERS: PCP Physician Assistant; Visit Provider Physician Assistant
DX: M80.00XA Age-related osteoporosis with current pathological fracture, unspecified site, initial encounter for fracture (principal)
CPT/HCPCS: 96372; J3111